=== PATIENT | male | born 1955 | race Caucasian/White ===

== ENCOUNTER 2020-04-18 07:48 | Outpatient (REF) | payer MEDICARE, SELFPAY ==
[2020-04-18 09:40] LABS: Anion Gap 12 (12-20); Blood Urea Nitrogen 25 mg/dL (9-16); Calcium 8.2 mg/dL (8.4-10.2); Carbon Dioxide 28 mmol/L (22-29); Chloride 102 mmol/L (96-108); Estimated Glomerular Filt Rate 54; Glucose Random 124 mg/dL (60-115); Sodium 137 mmol/L (135-145)
[2020-04-18 09:44] LABS: B Type Natriuretic Peptide 340 pg/mL (<100)
== END 2020-04-18 07:49 | disposition home or self-care (01) ==
LOC: HO.LAB 07:48
PROVIDERS: PCP Internal Medicine; Visit Provider Internal Medicine Cardiovascular Disease
DX: I42.9 Cardiomyopathy, unspecified (principal)
CPT/HCPCS: 80048; 83880

== ENCOUNTER → 2020-04-29 08:39 | Outpatient (BNVA) | payer MEDICARE, SELFPAY | PROVIDERS: PCP Internal Medicine; Referring Provider Internal Medicine; Visit Provider Internal Medicine Cardiovascular Disease | DX: I50.22 Chronic systolic (congestive) heart failure (principal); I42.8 Other cardiomyopathies; I47.2 Ventricular tachycardia; Z79.899 Other long term (current) drug therapy; Z45.02 Encounter for adjustment and management of automatic implantable cardiac defibrillator | CPT/HCPCS: 93005; 99212 ==

== ENCOUNTER 2020-06-03 07:43 | Outpatient (REF) | payer MEDICARE, SELFPAY ==
[2020-06-03 08:28] LABS: MANUAL DIFF FLAG NO
[2020-06-03 08:41] LABS: Estimated Average Glucose 117 mg/dL; Hemoglobin A1c % 5.7 %
[2020-06-03 08:50] LABS: Basophils Percent Auto 0.3 % (0-2); Eosinophils Absolute Auto 0.2 X10*3/uL (0.0-0.4); Eosinophils Percent Auto 3.8 % (0-4); Hematocrit 42.2 % (42-52); Hemoglobin 14.2 g/dl (14.0-18.0); Imm Gran Abs Auto 0.09 X10*3/uL (0.00-0.03); Imm Gran Pct Auto 1.5 % (0.0-0.4); Lymphocytes Absolute Auto 0.9 X10*3/uL (1.2-4.9); Lymphocytes Percent Auto 15.3 % (20-40); Mean Corpuscular HGB Conc 33.6 g/dl (31.0-36.0); Mean Corpuscular Hemoglobin 33.1 pg (27.0-33.0); Mean Corpuscular Volume 98.4 fL (80-98); Mean Platelet Volume 11.5 fL (9.4-12.4); Monocytes Absolute Auto 0.6 X10*3/uL (0.1-1.2); Neutrophils Absolute Auto 4.3 X10*3/uL (2.0-8.3); Neutrophils Percent Auto 70.1 % (45-73); Platelet Count 137 X10*3/uL (160-400); Red Blood Count 4.29 X10*6/uL (4.60-5.80); White Blood Count 6.1 X10*3/uL (4.8-10.8)
[2020-06-03 08:55] LABS: Calcium 8.9 mg/dL (8.4-10.2)
[2020-06-03 09:00] LABS: Alanine Aminotransferase 19 U/L (0-40); Alkaline Phosphatase 57 U/L (39-117); Anion Gap 13 (12-20); Aspartate Amino Transferase 16 U/L (5-37); Bilirubin Total 0.6 mg/dL (0.0-1.0); Blood Urea Nitrogen 25 mg/dL (9-16); Carbon Dioxide 26 mmol/L (22-29); Chloride 103 mmol/L (96-108); Estimated Glomerular Filt Rate 55; Glucose Random 113 mg/dL (60-115); Magnesium 2.3 mg/dL (1.6-2.6); Phosphorus 3.4 mg/dL (2.7-4.5); Sodium 137 mmol/L (135-145); Total Protein 6.5 g/dL (6.5-8.0)
== END 2020-06-03 07:44 | disposition home or self-care (01) ==
LOC: HO.LABR 07:43
PROVIDERS: Visit Provider Internal Medicine
DX: I50.20 Unspecified systolic (congestive) heart failure (principal); I10 Essential (primary) hypertension; E78.00 Pure hypercholesterolemia, unspecified; N40.0 Benign prostatic hyperplasia without lower urinary tract symptoms; I49.9 Cardiac arrhythmia, unspecified; E11.65 Type 2 diabetes mellitus with hyperglycemia; K22.70 Barrett's esophagus without dysplasia
CPT/HCPCS: 36415; 80053; 83036; 83735; 84100; 85025

== ENCOUNTER 2020-07-18 08:58 | Outpatient (REF) | payer MEDICARE, SELFPAY ==
[2020-07-18 09:32] LABS: MANUAL DIFF FLAG NO
[2020-07-18 09:42] LABS: Basophils Percent Auto 0.4 % (0-2); Eosinophils Absolute Auto 0.1 X10*3/uL (0.0-0.4); Eosinophils Percent Auto 1.8 % (0-4); Hematocrit 44.6 % (42-52); Hemoglobin 14.8 g/dl (14.0-18.0); Imm Gran Abs Auto 0.12 X10*3/uL (0.00-0.03); Imm Gran Pct Auto 1.6 % (0.0-0.4); Lymphocytes Percent Auto 13.2 % (20-40); Mean Corpuscular HGB Conc 33.2 g/dl (31.0-36.0); Mean Corpuscular Hemoglobin 32.5 pg (27.0-33.0); Mean Corpuscular Volume 97.8 fL (80-98); Mean Platelet Volume 11.1 fL (9.4-12.4); Monocytes Absolute Auto 0.8 X10*3/uL (0.1-1.2); Monocytes Percent Auto 10.7 % (2-11); Neutrophils Absolute Auto 5.5 X10*3/uL (2.0-8.3); Neutrophils Percent Auto 72.3 % (45-73); Platelet Count 142 X10*3/uL (160-400); Red Blood Count 4.56 X10*6/uL (4.60-5.80); Red Cell Distribution Width 13.3 % (11.0-16.0); White Blood Count 7.6 X10*3/uL (4.8-10.8)
[2020-07-18 10:07] LABS: Phosphorus 3.7 mg/dL (2.7-4.5)
[2020-07-18 10:10] LABS: Creatinine Urine 49.98 mg/dL; Microalbumin Urine < 5.0 mg/L
[2020-07-18 10:12] LABS: Alanine Aminotransferase 25 U/L (0-40); Albumin Level 4.3 g/dL (3.5-5.0); Alkaline Phosphatase 50 U/L (39-117); Anion Gap 12 (12-20); Aspartate Amino Transferase 19 U/L (5-37); Bilirubin Total 0.7 mg/dL (0.0-1.0); Blood Urea Nitrogen 34 mg/dL (9-16); Calcium 8.8 mg/dL (8.4-10.2); Carbon Dioxide 29 mmol/L (22-29); Chloride 101 mmol/L (96-108); Cholesterol 167 mg/dL; Estimated Glomerular Filt Rate 45; Glucose Random 100 mg/dL (60-115); HDL Cholesterol 54 mg/dL; LDL Cholesterol Calculated 95 mg/dl; Sodium 137 mmol/L (135-145); Triglycerides 90 mg/dL
[2020-07-18 10:15] LABS: B Type Natriuretic Peptide 298 pg/mL (<100)
[2020-07-18 10:26] LABS: Estimated Average Glucose 120 mg/dL; Hemoglobin A1C 152.7015 umol/L; Hemoglobin A1c % 5.8 %
[2020-07-18 10:42] LABS: Free T4 (Free Thyroxine) 1.23 ng/dL (0.71-1.85); Prostate Specific Antigen Scr 4.25 ng/mL (<0.05-4.0); Thyroid Stimulating Hormone 0.82 uIU/mL (0.32-4.0)
[2020-07-18 11:00] LABS: Folate > 20.0 ng/mL (> or = 4.0); Vitamin B12 1295 pg/mL (200-900)
== END 2020-07-18 08:59 | disposition home or self-care (01) ==
LOC: HO.LAB 08:58
PROVIDERS: PCP Internal Medicine; Visit Provider Internal Medicine
DX: I11.0 Hypertensive heart disease with heart failure (principal); I50.20 Unspecified systolic (congestive) heart failure; E78.00 Pure hypercholesterolemia, unspecified; K22.70 Barrett's esophagus without dysplasia; N40.0 Benign prostatic hyperplasia without lower urinary tract symptoms; I49.9 Cardiac arrhythmia, unspecified; E11.65 Type 2 diabetes mellitus with hyperglycemia; Z12.5 Encounter for screening for malignant neoplasm of prostate
CPT/HCPCS: 36415; 80053; 80061; 82043; 82607; 82746; 83036; 83880; 84100; 84153; 84439; 84443; 85025

== ENCOUNTER → 2020-07-22 08:33 | Outpatient (BNVA) | payer MEDICARE, SELFPAY | PROVIDERS: PCP Internal Medicine; Visit Provider Internal Medicine Cardiovascular Disease | DX: Z45.02 Encounter for adjustment and management of automatic implantable cardiac defibrillator (principal); I50.22 Chronic systolic (congestive) heart failure; I42.8 Other cardiomyopathies; I47.2 Ventricular tachycardia; N18.9 Chronic kidney disease, unspecified | CPT/HCPCS: 93005; 99212 ==

== ENCOUNTER 2020-08-24 08:14 | Outpatient (REF) | payer MEDICARE, SELFPAY ==
[2020-08-24 09:09] LABS: MANUAL DIFF FLAG NO
[2020-08-24 09:17] LABS: Basophils Percent Auto 0.6 % (0-2); Eosinophils Absolute Auto 0.1 X10*3/uL (0.0-0.4); Eosinophils Percent Auto 1.9 % (0-4); Hematocrit 43.1 % (42-52); Imm Gran Abs Auto 0.17 X10*3/uL (0.00-0.03); Imm Gran Pct Auto 2.4 % (0.0-0.4); Lymphocytes Absolute Auto 1.1 X10*3/uL (1.2-4.9); Lymphocytes Percent Auto 15.8 % (20-40); Mean Corpuscular HGB Conc 32.5 g/dl (31.0-36.0); Mean Corpuscular Hemoglobin 32.1 pg (27.0-33.0); Mean Corpuscular Volume 98.9 fL (80-98); Mean Platelet Volume 11.4 fL (9.4-12.4); Monocytes Absolute Auto 0.7 X10*3/uL (0.1-1.2); Monocytes Percent Auto 10.3 % (2-11); Platelet Count 156 X10*3/uL (160-400); Red Blood Count 4.36 X10*6/uL (4.60-5.80); Red Cell Distribution Width 13.2 % (11.0-16.0); White Blood Count 7.2 X10*3/uL (4.8-10.8)
[2020-08-24 09:23] LABS: Estimated Average Glucose 123 mg/dL; Hemoglobin A1c % 5.9 %
[2020-08-24 09:39] LABS: Alanine Aminotransferase 23 U/L (0-40); Albumin Level 4.2 g/dL (3.5-5.0); Alkaline Phosphatase 54 U/L (39-117); Anion Gap 10 (12-20); Anion Gap 11 (12-20); Aspartate Amino Transferase 20 U/L (5-37); Bilirubin Total 0.6 mg/dL (0.0-1.0); Blood Urea Nitrogen 38 mg/dL (9-16); Calcium 9.1 mg/dL (8.4-10.2); Calcium 9.2 mg/dL (8.4-10.2); Carbon Dioxide 29 mmol/L (22-29); Chloride 104 mmol/L (96-108); Estimated Glomerular Filt Rate 39; Glucose Random 114 mg/dL (60-115); Glucose Random 115 mg/dL (60-115); Magnesium 2.6 mg/dL (1.6-2.6); Phosphorus 3.6 mg/dL (2.7-4.5); Potassium 5.3 mmol/L (3.3-5.1); Sodium 138 mmol/L (135-145); Sodium 139 mmol/L (135-145); Total Protein 6.7 g/dL (6.5-8.0)
[2020-08-24 09:40] LABS: B Type Natriuretic Peptide 254 pg/mL (<100)
== END 2020-08-24 08:15 | disposition home or self-care (01) ==
LOC: HO.LAB 08:14
PROVIDERS: Internal Medicine Cardiovascular Disease; PCP Internal Medicine; Visit Provider Internal Medicine
DX: E11.22 Type 2 diabetes mellitus with diabetic chronic kidney disease (principal); I13.0 Hypertensive heart and chronic kidney disease with heart failure and stage 1 through stage 4 chronic kidney disease, or unspecified chronic kidney disease; N18.9 Chronic kidney disease, unspecified; I50.22 Chronic systolic (congestive) heart failure; E11.65 Type 2 diabetes mellitus with hyperglycemia; E78.00 Pure hypercholesterolemia, unspecified; K22.70 Barrett's esophagus without dysplasia; N40.0 Benign prostatic hyperplasia without lower urinary tract symptoms; I49.9 Cardiac arrhythmia, unspecified
CPT/HCPCS: 36415; 80048; 80053; 83036; 83735; 83880; 84100; 85025

== ENCOUNTER 2020-09-17 09:21 | Outpatient (REF) | payer MEDICARE, SELFPAY ==
[2020-09-17 10:21] LABS: Anion Gap 11 (12-20); Blood Urea Nitrogen 31 mg/dL (9-16); Calcium 8.9 mg/dL (8.4-10.2); Carbon Dioxide 31 mmol/L (22-29); Chloride 103 mmol/L (96-108); Estimated Glomerular Filt Rate 40; Glucose Random 99 mg/dL (60-115); Potassium 5.1 mmol/L (3.3-5.1); Sodium 140 mmol/L (135-145)
[2020-09-17 10:31] LABS: B Type Natriuretic Peptide 224 pg/mL (<100)
== END 2020-09-17 09:22 | disposition home or self-care (01) ==
LOC: HO.LAB 09:21
PROVIDERS: PCP Internal Medicine; Visit Provider Internal Medicine Cardiovascular Disease
DX: N18.9 Chronic kidney disease, unspecified (principal); I50.22 Chronic systolic (congestive) heart failure
CPT/HCPCS: 36415; 80048; 83880

== ENCOUNTER 2020-09-23 09:01 | Outpatient (REF) | payer MEDICARE, SELFPAY ==
--- NOTE | ~2020-09-23 | US_ITS ---
EXAMINATION: US THYROID CLINICAL INFORMATION: Nodules. COMPARISON: Ultrasound thyroid soft tissues 09/06/2019 and 09/13/2018. TECHNIQUE: Linear transducer grayscale and color Doppler examination with attention to the region of the thyroid. FINDINGS: SIZE: Measurements of the thyroid lobes and nodules are given in sagittal, anteroposterior and transverse dimensions respectively. Right Thyroid Lobe: 4.9 x 2.2 x 1.9 cm, volume 10.7 mL. Previously 5.9 x 1.7 x 1.9 cm, volume 9.9 mL. Parenchyma: The gland echotexture is homogeneous. Thyroid vascularity is normal. Left Thyroid Lobe: 4.4 x 1.1 x 1.6 cm, volume 4.1 mL. Previously 4.8 x 1.5 x 1.5 cm, volume 5.5 mL. Parenchyma: The gland echotexture is homogeneous. Thyroid vascularity is normal. Isthmus: 0.4 cm in maximum AP dimension. Previously 0.4 cm. There are multiple bilateral cystic nodules. Estimated total number of solid nodules greater than or equal to 1 cm: 1. Manufacturing Chief Engineer nodules are described as follows: 1. Location: Left midpole. Size: 1.2 x 0.7 x 1.0 cm, volume 0.4 mL. Previously: Not seen previously. Nodule characteristics: Composition: Solid/almost completely solid (2). Echogenicity: Isoechoic (1). Shape: Not taller than wide (0). Margins: Smooth (0). Echogenic Foci: None (0). ACR TI-RADS total points: 3. ACR TI-RADS category: 3. Significant change in size (>/= 20% in 2 dimensions and minimal increase of 2 mm or 50% or greater increase in volume): Change in features: Change in ACR TI-RADS risk category: NODES: No lymphadenopathy is seen in the tissue surrounding the thyroid gland. US/US thyroid IMPRESSION: Slightly enlarged right lobe. Multiple bilateral cystic nodules. Newly appreciated solid nodule in the left lobe.. ACR TI-RADS RECOMMENDATION REFERENCE: Ultrasound-guided fine-needle aspiration, followup ultrasound, no further follow up. * TR1 (0 point) and TR 2 (2 points): No FNA or follow up * TR3 (3 points): FNA if more than or equal to 2.5 cm in maximum dimension, followup ultrasound in 1, 3 and 5 years if 1.5 to 2.4 cm in maximum dimension. * TR4 (4-6 points): FNA if more than or equal to 1.5 cm in maximum dimension, followup ultrasound in 1, 2, 3 and 5 years if 1 to 1.4 cm in maximum dimension. * TR5 (more than or equal to 7 points): FNA if more than or equal to 1 cm in maximum dimension, followup ultrasound every year for 5 years if 0.5 to 0.9 cm in maximum dimension. * TR3, TR4 or TR5 nodules that are below the size threshold for follow up receive no follow up.
--- NOTE | ~2020-09-23 | XR_ITS ---
EXAMINATION: XR CHEST CLINICAL INFORMATION: CHF COMPARISON: Previous chest x-rays most recent December 2018 TECHNIQUE: 2 views of the chest were obtained. FINDINGS: The cardiac silhouette is enlarged but stable. There is a left subclavian single chamber pacemaker projecting over the ventricular apex that is unchanged. Hilar and mediastinal contours are unremarkable. There is question of a right pulmonary nodule in between the third and fourth anterior ribs. The lungs are otherwise clear. There is a small left pleural effusion. There is no right pleural effusion. There is increased thoracic kyphosis and degenerative changes of the spine. XR/XR chest 2V IMPRESSION: Stable enlargement of the cardiac silhouette. Small left pleural effusion. No evidence of pulmonary edema. Question 4 mm right pulmonary nodule.
== END 2020-09-23 09:02 | disposition home or self-care (01) ==
LOC: HO.US 09:01
PROVIDERS: PCP Internal Medicine; Visit Provider Internal Medicine Endocrinology, Diabetes & Metabolism
DX: E04.2 Nontoxic multinodular goiter (principal); I50.22 Chronic systolic (congestive) heart failure
CPT/HCPCS: 71046; 76536

== ENCOUNTER 2020-11-05 10:21 | Outpatient (REF) | payer MEDICARE, SELFPAY ==
[2020-11-05 11:06] LABS: Appearance Urine CLEAR; Color Urine STRAW; Glucose Urine UA NEG (NEG); Leukocyte Esterase Urine NEG (NEG); Nitrite Urine NEG (NEG); PH 5.5 (5.0-8.0); Urine Blood NEG (NEG); Urine Ketones NEG (NEG); Urine Protein NEG (NEG-TRACE)
[2020-11-05 11:06] LABS: MANUAL DIFF FLAG NO
[2020-11-05 11:20] LABS: RBC Urine 0 /HPF (0); WBC Urine 0 /HPF (0-4)
[2020-11-05 11:36] LABS: Basophils Percent Auto 0.2 % (0-2); Eosinophils Absolute Auto 0.1 X10*3/uL (0.0-0.4); Eosinophils Percent Auto 1.5 % (0-4); Hematocrit 42.8 % (42-52); Hemoglobin 13.9 g/dl (14.0-18.0); Imm Gran Abs Auto 0.14 X10*3/uL (0.00-0.03); Imm Gran Pct Auto 1.7 % (0.0-0.4); Lymphocytes Absolute Auto 0.8 X10*3/uL (1.2-4.9); Lymphocytes Percent Auto 9.4 % (20-40); Mean Corpuscular HGB Conc 32.5 g/dl (31.0-36.0); Mean Corpuscular Hemoglobin 32.1 pg (27.0-33.0); Mean Corpuscular Volume 98.8 fL (80-98); Mean Platelet Volume 11.2 fL (9.4-12.4); Monocytes Absolute Auto 0.8 X10*3/uL (0.1-1.2); Neutrophils Absolute Auto 6.4 X10*3/uL (2.0-8.3); Neutrophils Percent Auto 77.2 % (45-73); Platelet Count 170 X10*3/uL (160-400); Red Blood Count 4.33 X10*6/uL (4.60-5.80); Red Cell Distribution Width 13.3 % (11.0-16.0); White Blood Count 8.3 X10*3/uL (4.8-10.8)
[2020-11-05 11:55] LABS: Alanine Aminotransferase 26 U/L (0-40); Albumin Level 4.3 g/dL (3.5-5.0); Alkaline Phosphatase 67 U/L (39-117); Anion Gap 14 (12-20); Aspartate Amino Transferase 19 U/L (5-37); Bilirubin Total 0.4 mg/dL (0.0-1.0); Blood Urea Nitrogen 47 mg/dL (9-16); Calcium 9.2 mg/dL (8.4-10.2); Carbon Dioxide 25 mmol/L (22-29); Chloride 103 mmol/L (96-108); Estimated Glomerular Filt Rate 34; Glucose Random 149 mg/dL (60-115); Magnesium 2.7 mg/dL (1.6-2.6); Phosphorus 3.8 mg/dL (2.7-4.5); Potassium 5.3 mmol/L (3.3-5.1); Sodium 137 mmol/L (135-145); Total Protein 7.1 g/dL (6.5-8.0)
[2020-11-05 12:05] LABS: Estimated Average Glucose 120 mg/dL; Hemoglobin A1C 168.7442 umol/L; Hemoglobin A1c % 5.8 %
== END 2020-11-05 10:22 | disposition home or self-care (01) ==
LOC: HO.LAB 10:21
PROVIDERS: Absent Provider Internal Medicine; PCP Internal Medicine; Visit Provider Nurse Practitioner Family
DX: E11.65 Type 2 diabetes mellitus with hyperglycemia (principal); N50.812 Left testicular pain
CPT/HCPCS: 36415; 80053; 81001; 83036; 83735; 84100; 85025

== ENCOUNTER → 2020-11-12 08:51 | Outpatient (BNVA) | payer MEDICARE, SELFPAY | PROVIDERS: PCP Internal Medicine; Visit Provider Internal Medicine Endocrinology, Diabetes & Metabolism | DX: E04.2 Nontoxic multinodular goiter (principal) | CPT/HCPCS: 99212 ==

== ENCOUNTER 2020-11-13 06:21 | Day surgery (SDC) | payer MEDICARE, SELFPAY ==
[2020-11-05 19:22] VITALS: BMI 25.5
--- NOTE | 2020-11-12 10:16 | HO.ANESPROP2 ---
HPI - Anesthesia Eval Consult details Narrative: 65yo M for Upper Endoscopy ICD in situ stable per cardiac office visit 07/2020, diuretic decreased d/t increasing creat PMFSH Active Problems Active Problems: All Active Problems (Updated 11/12/20 @ 09:09 by Shubham Bundy MD) Non-toxic multinodular goiter (Acute) Adult general medical exam (Acute) Pain in left testicle (Acute) CKD (chronic kidney disease) (Acute) Chronic HFrEF (heart failure with reduced ejection fraction) (Acute) Nonischemic cardiomyopathy (Acute) ICD (implantable cardioverter-defibrillator) in place (Acute) NSVT (nonsustained ventricular tachycardia) (Acute) BPH (benign prostatic hyperplasia) (Acute) Mayers's esophagus (Acute) Hypercholesterolemia (Acute) Hypertension (Acute) Type 2 diabetes mellitus with hyperglycemia (Acute) Overweight (BMI 25.0-29.9) (Acute) GERD (gastroesophageal reflux disease) (Acute) Past Medical History Medical History Mayers's esophagus BPH (benign prostatic hyperplasia) Chronic HFrEF (heart failure with reduced ejection fraction) CKD (chronic kidney disease) GERD (gastroesophageal reflux disease) High prostate specific antigen (PSA) History of pulmonary embolism Hypercholesterolemia Hypertension ICD (implantable cardioverter-defibrillator) in place Non-toxic multinodular goiter Nonischemic cardiomyopathy NSVT (nonsustained ventricular tachycardia) Overweight (BMI 25.0-29.9) Pain in left testicle Shoulder fracture, right Sialoadenitis Sustained VT (ventricular tachycardia) Thyroid nodule Tubular adenoma of colon Type 2 diabetes mellitus with hyperglycemia Family History Family History Father CVD (cardiovascular disease) Leukemia Cardiomyopathy HTN (hypertension) Mother HTN (hypertension) Surgical History Surgical History H/O left inguinal hernia repair History of colonoscopy History of loop recorder (~2013) History of prostate surgery History of tonsillectomy and adenoidectomy Hx of cardiac cath (~2013) Social History Social History Alcohol intake: never Use of substances other than those prescribed or required for medical reasons: No Are you DNR?: No Advance Directives: Yes Advance Directives Information Provided: Yes Advance Directives on File: No (will bring in copy) Advance Directives Date on File: 07/16/19 Meds Allergies Allergy/AdvReac Type Severity Reaction Status Date / Time epinephrine [EPINEPHRINE] Allergy Severe CANNOT Verified 11/05/20 19:22 TAKE DUE TO VTACH HX AND AICD SETTINGS metoprolol [METOPROLOL] Allergy Intermediate FLU LIKE Verified 11/05/20 19:22 SYMPTOMS ezetimibe [From ZETIA] AdvReac Intermediate HEAD Verified 11/05/20 19:22 FUZZY Oodtglx-Tet-Ccm Reductase AdvReac Intermediate HEAD Verified 11/05/20 19:22 Inhibitor FUZZY [[id number]-RXO-MHZ REDUCTASE INHIBITOR] naproxen AdvReac Unknown water Verified 11/05/20 19:22 retention Home Medications Medication Instructions Recorded Confirmed Last Taken Type bimatoprost 0.01 % eye drops 1 drp OPHTHALMIC (EYE) DAILY ml 04/29/20 11/12/20 Unknown History bumetanide 2 mg tablet 2.5 mg PO DAILY tab 08/29/20 11/12/20 Unknown History ivabradine 5 mg tablet 2.5 mg PO BID cap 11/12/20 11/12/20 11/13/20 05:00 History lisinopril 10 mg tablet 10 mg PO DAILY 11/12/20 11/12/20 Unknown History potassium chloride 20 mEq 80 meq PO BID PRN tab 11/12/20 11/12/20 Unknown History tablet,extended release(part/cryst) Exam Exam Date and Time: November 12, 2020 1016 Height,Weight and Vital Signs: Height 5 ft 11 in Weight 83.007 kg Pertinent Lab Results Pertinent Lab Results: Laboratory Tests 11/05/20 11/05/20 10:34 10:34 WBC 8.3 Hgb 13.9 L Hct 42.8 Plt Count 170 Sodium 137 Potassium 5.3 H Chloride 103 Carbon Dioxide 25 BUN 47 H D Creatinine 1.99 H Narrative Narrative: Remote ICD report generated 10/29/2020. ICD function is adequate. Multiple nonsustained VT episodes noted. No therapies delivered EKG 07/2020 normal sinus rhythm first-degree AV block with sinus arrhythmia with low-voltage QRS and inferior Q-waves with normal QTC interval ECHO 09/2019 (due 01/2021 per cardiology note) EF 20-25% grade 2 diastolic dysfunction moderate MR moderate dilated left atrium, severe right ventricular pressure Assessment and Plan Assessment Anesthesia Assessment: Chart Reviewed
[2020-11-13 06:43] VITALS: BP 114/61; PULSE 52; RESP 20; TEMP 36.3; O2SAT 99
[2020-11-13 06:49] LABS: Glucose, Whole Blood 99 mg/dL (60-115)
[2020-11-13] MEDS: 0.9 % Sodium Chloride 1,000 ML 50 ML IVCONT (07:05)
--- NOTE | 2020-11-13 07:17 | P.CONAN_ITS ---
[facility] Active Problems Active Problems: All Active Problems (Updated 11/12/20 @ 09:09 by Shubham Bundy MD) Non-toxic multinodular goiter (Acute) Adult general medical exam (Acute) Pain in left testicle (Acute) CKD (chronic kidney disease) (Acute) Chronic HFrEF (heart failure with reduced ejection fraction) (Acute) Nonischemic cardiomyopathy (Acute) ICD (implantable cardioverter-defibrillator) in place (Acute) NSVT (nonsustained ventricular tachycardia) (Acute) BPH (benign prostatic hyperplasia) (Acute) Mayers's esophagus (Acute) Hypercholesterolemia (Acute) Hypertension (Acute) Type 2 diabetes mellitus with hyperglycemia (Acute) Overweight (BMI 25.0-29.9) (Acute) GERD (gastroesophageal reflux disease) (Acute) Past Medical History Medical History Mayers's esophagus BPH (benign prostatic hyperplasia) Chronic HFrEF (heart failure with reduced ejection fraction) CKD (chronic kidney disease) GERD (gastroesophageal reflux disease) High prostate specific antigen (PSA) History of pulmonary embolism Hypercholesterolemia Hypertension ICD (implantable cardioverter-defibrillator) in place Non-toxic multinodular goiter Nonischemic cardiomyopathy NSVT (nonsustained ventricular tachycardia) Overweight (BMI 25.0-29.9) Pain in left testicle Shoulder fracture, right Sialoadenitis Sustained VT (ventricular tachycardia) Thyroid nodule Tubular adenoma of colon Type 2 diabetes mellitus with hyperglycemia Family History Family History Father CVD (cardiovascular disease) Leukemia Cardiomyopathy HTN (hypertension) Mother HTN (hypertension) Surgical History Surgical History H/O left inguinal hernia repair History of colonoscopy History of loop recorder (~2013) History of prostate surgery History of tonsillectomy and adenoidectomy Hx of cardiac cath (~2013) Social History Social History Alcohol intake: never Use of substances other than those prescribed or required for medical reasons: No Are you DNR?: No Advance Directives: Yes Advance Directives Information Provided: Yes Advance Directives on File: No (will bring in copy) Advance Directives Date on File: 07/16/19 Meds Allergies Allergy/AdvReac Type Severity Reaction Status Date / Time epinephrine [EPINEPHRINE] Allergy Severe CANNOT Verified 11/05/20 19:22 TAKE DUE TO VTACH HX AND AICD SETTINGS metoprolol [METOPROLOL] Allergy Intermediate FLU LIKE Verified 11/05/20 19:22 SYMPTOMS ezetimibe [From ZETIA] AdvReac Intermediate HEAD Verified 11/05/20 19:22 FUZZY Kddzdyg-Bvo-Vnw Reductase AdvReac Intermediate HEAD Verified 11/05/20 19:22 Inhibitor FUZZY [CKIAJGP-HIT-UCU REDUCTASE INHIBITOR] naproxen AdvReac Unknown water Verified 11/05/20 19:22 retention Active Medications: Current Medications Generic Name Dose Route Start Last Admin Trade Name Freq PRN Reason Stop Dose Admin Sodium Chloride 1,000 mls @ 50 mls/hr 11/13/20 06:15 11/13/20 07:05 Ns IVCONT 50 mls/hr .Q20H DENNISE Administration Home Medications Medication Instructions Recorded Confirmed Last Taken Type bimatoprost 0.01 % eye drops 1 drp OPHTHALMIC (EYE) DAILY ml 04/29/20 11/12/20 Unknown History bumetanide 2 mg tablet 2.5 mg PO DAILY tab 08/29/20 11/12/20 Unknown History ivabradine 5 mg tablet 2.5 mg PO BID cap 11/12/20 11/12/20 11/13/20 05:00 History lisinopril 10 mg tablet 10 mg PO DAILY 11/12/20 11/12/20 Unknown History potassium chloride 20 mEq 80 meq PO BID PRN tab 11/12/20 11/12/20 Unknown History tablet,extended release(part/cryst) Exam Exam Date and Time: November 13, 2020 0717 Height,Weight and Vital Signs: Height 5 ft 11 in Weight 83.007 kg Last Vital Signs Temp 97.4 F 11/13/20 06:43 Pulse 52 11/13/20 06:43 Resp 20 11/13/20 06:43 BP 114/61 11/13/20 06:43 Pulse Ox 99 11/13/20 06:43 Pertinent Lab Results Pertinent Lab Results: Laboratory Tests 11/13/20 06:38 POC Glucose 99 Airway Mallampati Class: II TM Dist: >3cm Neck ROM: Full Heart: RRR Lungs: CTA
[2020-11-13 08:09] VITALS: BP 100/48; PULSE 56; RESP 16; TEMP 36.2; O2SAT 98
--- NOTE | 2020-11-13 08:12 | P.BOP_ITS ---
Brief Operative Note Date of Service: 11/13/20 Pre-op diagnosis: Mayers's Post-op diagnosis: other (Mayers's, Gastric polyp) Procedure: EGD with biopsies Surgeon: Dalton Flores Anesthesia: MAC Was an Fire Sprinkler Service Technician used for this Procedure?: No Estimated blood loss (mL): 4.0 Pathology: other (A. Esophagus 35-36cm B. Gastric polyp) Condition: stable Disposition: PACU
[2020-11-13 08:22] VITALS: BP 105/48; PULSE 58; RESP 16; O2SAT 99
[2020-11-13 08:24] VITALS: BP 111/49; PULSE 60; RESP 18; O2SAT 98
--- NOTE | 2020-11-13 08:51 | OP_ITS ---
SURGEON: Dalton Flores MD INDICATIONS: The patient presents for evaluation of gastroesophageal reflux and low grade dysplasia within the Mayers's esophagus. Full consent has been obtained from him for this, including risks of bleeding and perforation. PREOPERATIVE DIAGNOSIS: Gastroesophageal reflux with Mayers's esophagus and low-grade dysplasia. POSTOPERATIVE DIAGNOSIS: Gastroesophageal reflux with Mayers's esophagus and low-grade dysplasia, hiatal hernia, gastric polyp. PROCEDURE PERFORMED: Esophagogastroduodenoscopy with biopsies. ESTIMATED BLOOD LOSS: COMPLICATIONS: ANESTHESIA: Medication used, monitored anesthesia care. ASSISTANTS: SPECIMENS: DESCRIPTION OF PROCEDURE: The patient was placed in the left lateral decubitus position. The Olympus video gastroscope was passed in the posterior oropharynx and upper esophagus under direct vision. The scope was passed slowly into the distal esophagus. The gastroesophageal junction appeared at 36 cm. Extending from this to 35 cm, there was a non-circumferential segment of Mayers's appearing mucosa. There was no gross evidence of any lesions nor esophagitis. The scope entered the stomach, there was a moderate-sized hiatal hernia with the diaphragmatic indentation seen at 40 cm. Within the hiatal hernia what appeared to be an inflammatory polyp. The scope was advanced to the pylorus and the duodenum was cannulated the descending portion, the duodenum including the bulb appeared normal without mass or ulceration. The scope was withdrawn back in the stomach. The gastric antrum and body appeared normal with good peristalsis. The scope was retroflexed visualizing the proximal stomach carefully, which appeared normal, without any sign of mass or ulceration. The scope was straightened. Scope was withdrawn back to the esophagus. Multiple biopsies were obtained between 35 and 36 cm in the area of Mayers's appearing mucosa. I then also obtained multiple biopsies from the inflammatory appearing gastric polyp within the hiatal hernia. Proximal to 35 cm, the esophageal mucosa appeared normal. The scope was withdrawn from the patient. He tolerated the procedure well and was returned to the recovery area in stable condition. IMPRESSION: 1. Mayers's esophagus, rule out dysplasia. 2. Inflammatory appearing gastric polyp. 3. Hiatal hernia. PLAN: The results of biopsies will be checked. I would recommend a repeat upper endoscopy within 1 to 2 years depending upon these results and his previous history of dysplasia. He was advised to continue his daily omeprazole. He was advised not to use any aspirin or NSAIDs for 1 week. MD ADELE Tse/ALFRED / [phone]
--- NOTE | 2020-11-13 12:51 | HO.POSTANES ---
Post Anesthesia Evaluation Post Anesthesia Evaluation Vital Signs: Vital Signs Temp Pulse Resp BP Pulse Ox 11/13/20 08:24 60 18 111/49 L 98 11/13/20 08:22 58 16 105/48 L 99 11/13/20 08:09 97.1 F 56 16 100/48 L 98 11/13/20 06:43 97.4 F 52 20 114/61 99 Anesthesia: Monitored Mental Status: Awake Pain Control: Satisfactory Nausea/Vomiting: None Hydration: Adequate Anesthesia-Related Issues: No Anes. Related Issues
== END 2020-11-13 08:57 | disposition home or self-care (01) ==
PROVIDERS: PCP Internal Medicine; Visit Provider Internal Medicine
PROC: 0DJ08ZZ Inspection of Upper Intestinal Tract, Via Natural or Artificial Opening Endoscopic (ICD-10-PCS; CPT 43235; principal; 2020-11-13 07:30)
DX: K21.9 Gastro-esophageal reflux disease without esophagitis (principal); K22.710 Barrett's esophagus with low grade dysplasia; K44.9 Diaphragmatic hernia without obstruction or gangrene; K31.7 Polyp of stomach and duodenum; I13.0 Hypertensive heart and chronic kidney disease with heart failure and stage 1 through stage 4 chronic kidney disease, or unspecified chronic kidney disease; I50.22 Chronic systolic (congestive) heart failure; N18.9 Chronic kidney disease, unspecified; E11.22 Type 2 diabetes mellitus with diabetic chronic kidney disease; Z79.899 Other long term (current) drug therapy; Z88.8 Allergy status to other drugs, medicaments and biological substances
CPT/HCPCS: 43239; 82947; 88305; 88342

== ENCOUNTER → 2020-11-21 14:55 | Outpatient (BNVA) | payer MEDICARE, SELFPAY | PROVIDERS: PCP Internal Medicine; Visit Provider Urology | DX: N50.812 Left testicular pain (principal) | CPT/HCPCS: 64450; 99202 ==

== ENCOUNTER 2020-11-26 08:04 | Outpatient (REF) | payer MEDICARE, SELFPAY ==
[2020-11-26 09:23] LABS: B Type Natriuretic Peptide 316 pg/mL (<100)
[2020-11-26 09:25] LABS: Alanine Aminotransferase 26 U/L (0-40); Alkaline Phosphatase 50 U/L (39-117); Anion Gap 12 (12-20); Aspartate Amino Transferase 27 U/L (5-37); Bilirubin Total 0.7 mg/dL (0.0-1.0); Blood Urea Nitrogen 37 mg/dL (9-16); Calcium 9.1 mg/dL (8.4-10.2); Carbon Dioxide 27 mmol/L (22-29); Chloride 104 mmol/L (96-108); Estimated Glomerular Filt Rate 35; Glucose Random 103 mg/dL (60-115); Magnesium 2.3 mg/dL (1.6-2.6); Sodium 138 mmol/L (135-145); Total Protein 6.4 g/dL (6.5-8.0)
== END 2020-11-26 08:05 | disposition home or self-care (01) ==
LOC: HO.LAB 08:04
PROVIDERS: PCP Internal Medicine; Visit Provider Internal Medicine
DX: I50.22 Chronic systolic (congestive) heart failure (principal)
CPT/HCPCS: 36415; 80053; 83735; 83880

== ENCOUNTER → 2020-12-20 11:47 | Outpatient (BNVA) | payer MEDICARE, SELFPAY | PROVIDERS: PCP Internal Medicine; Visit Provider Urology | DX: N50.819 Testicular pain, unspecified (principal) | CPT/HCPCS: Q3014 ==

== ENCOUNTER 2021-01-16 07:24 | Outpatient (REF) | payer MEDICARE, SELFPAY ==
[2021-01-16 08:33] LABS: Eosinophils Absolute Auto 0.1 X10*3/uL (0.0-0.4); Hemoglobin 13.2 g/dl (14.0-18.0); Mean Platelet Volume 11.5 fL (9.4-12.4)
[2021-01-16 08:35] LABS: Basophils Percent Auto 0.4 % (0-2); Eosinophils Percent Auto 1.9 % (0-4); Hematocrit 40.6 % (42-52); Imm Gran Abs Auto 0.08 X10*3/uL (0.00-0.03); Imm Gran Pct Auto 1.1 % (0.0-0.4); Mean Corpuscular HGB Conc 32.5 g/dl (31.0-36.0); Mean Corpuscular Hemoglobin 32.2 pg (27.0-33.0); Monocytes Absolute Auto 0.9 X10*3/uL (0.1-1.2); Monocytes Percent Auto 11.9 % (2-11); Neutrophils Absolute Auto 5.1 X10*3/uL (2.0-8.3); Neutrophils Percent Auto 70.7 % (45-73); Platelet Count 134 X10*3/uL (160-400); Red Cell Distribution Width 13.5 % (11.0-16.0); White Blood Count 7.2 X10*3/uL (4.8-10.8)
[2021-01-16 08:37] LABS: MANUAL DIFF FLAG NO
[2021-01-16 09:40] LABS: Alanine Aminotransferase 24 U/L (0-40); Alkaline Phosphatase 50 U/L (39-117); Anion Gap 14 (12-20); Aspartate Amino Transferase 20 U/L (5-37); Bilirubin Total 0.6 mg/dL (0.0-1.0); Blood Urea Nitrogen 46 mg/dL (9-16); Calcium 9.4 mg/dL (8.4-10.2); Carbon Dioxide 26 mmol/L (22-29); Chloride 104 mmol/L (96-108); Estimated Glomerular Filt Rate 33; Glucose Random 100 mg/dL (60-115); Magnesium 2.4 mg/dL (1.6-2.6); Potassium 4.6 mmol/L (3.3-5.1); Sodium 139 mmol/L (135-145); Total Protein 6.5 g/dL (6.5-8.0)
[2021-01-16 09:51] LABS: Thyroid Stimulating Hormone 0.76 uIU/mL (0.32-4.0)
== END 2021-01-16 07:25 | disposition home or self-care (01) ==
LOC: HO.LAB 07:24
PROVIDERS: Absent Provider Internal Medicine Cardiovascular Disease; PCP Internal Medicine; Visit Provider Internal Medicine
DX: I50.22 Chronic systolic (congestive) heart failure (principal)
CPT/HCPCS: 36415; 80053; 83735; 84443; 85025

== ENCOUNTER → 2021-01-20 12:46 | Outpatient (BNVA) | payer MEDICARE, SELFPAY | PROVIDERS: PCP Internal Medicine; Referring Provider Internal Medicine; Visit Provider Internal Medicine Cardiovascular Disease | DX: Z45.02 Encounter for adjustment and management of automatic implantable cardiac defibrillator (principal); I50.22 Chronic systolic (congestive) heart failure; I42.8 Other cardiomyopathies | CPT/HCPCS: 93005; 99212 ==

== ENCOUNTER → 2021-02-19 10:09 | Outpatient (REF) | payer MEDICARE, SELFPAY ==
--- NOTE | 2021-02-19 10:12 | CA_ITS ---
Transthoracic Echocardiogram Patient (Last, First, Middle): Joseph LomasNinfa Gender: Male Date of : 1955 Age: 65 Procedure Date: 02/19/2021 Procedure Type: Transthoracic Echocardiogram Location: OP Height: 180.34 cm Weight: 81.65 kg BSA: 2.02 m2 Heart Rate: bpm BP: 70 / 40 mmHg Security Consultant: JAMES Referring MD: Renato Diaz MD Symptoms: I42.8 - Other cardiomyopathies Study Quality: Fair ECG Rhythm: Sinus Conclusions: - The left ventricular systolic function is severely decreased. The calculated ejection fraction is 28% by biplane method. - There is mild aortic valve regurgitation. - There is mild mitral valve regurgitation. - There is mild tricuspid valve regurgitation. Findings Left Ventricle Moderately increased left ventricular cavity size. There is normal left ventricular wall thickness. The left ventricular systolic function is severely decreased. The calculated ejection fraction is 28% by biplane method. There is severe global hypokinesis. E/E prime ratio is between 8 and 15 consistent with indeterminate filling pressures. Evidence suggests grade I (mild) diastolic dysfunction. Right Ventricle There is a pacemaker wire seen in the right ventricle. Atria Both atria are normal in size. Aortic Valve There is a normal trileaflet aortic valve. There is no aortic valve stenosis. There is mild aortic valve regurgitation. Mitral Valve The mitral valve appears normal. There is mild mitral valve regurgitation. There is no mitral valve stenosis. Tricuspid Valve Normal tricuspid valve structure. There is mild tricuspid valve regurgitation. The pulmonary artery systolic pressure is normal. Great Vessels The aortic annulus, sinuses of valsalva, and asc aorta are normal in size. Venous The inferior vena cava is normal in size and collapses greater than 50% with inspiration. Pericardium/Pleural There is no evidence of pericardial effusion. Prior Study Comparison No significant change compared to prior study dated: 09/28/2019. Measurements 2D Linear Measurements IVSd: 1.01 0.6-0.9/0.6-1.0 cm LVIDd: 6.53 3.9-5.3/4.2-5.9 cm LVIDd Index: 3.23 2.4-3.2/2.2-3.1 cm/m2 LVIDs: 5.64 2.0-3.6 cm LVPWd: 1.27 0.7-1.1 cm Ao Root: 3.40 2.1-3.5 cm LA Diam: 3.90 2.7-3.8/3.0-4.0 cm LAIDs Index: 1.93 1.5-2.3 cm/m2 LV Mass: 421.57 67-162/88-224 g LV Mass Index: 208.70 43-95/49-115 g/m2 LVOT Diam: 2.60 3.0+(-)1.3 cm 2D Systolic Function EF 4C: 27.20 >55% EF 2C: 24.70 >55% EF BiP: 27.80 >55% Mitral Valve MV Pk E: 0.60 MV PK A: 0.81 MV Decel Time: 204.00 E/A: 0.70 E'Lateral: 5.77 E'Medial: 5.22 E/E' Med: 11.40 E/E' Lat: 10.30 PHT: 60.00 MVA PHT: 3.67 Decel [place]: 2.92 Aortic Valve AoV Pk Michael: 1.29 AoV Pk Grad: 7.00 AI Pk Michael: 3.27 AI [place]: 1.38 LVOT LVOT Pk Michael: 0.44 LVOT Mn Michael: 0.30 LVOT VTI: 0.11 LVOT Pk Grad: 1.00 LVOT Mn Grad: 0.00 LVOT Diam: 2.60 LVOT Area: 5.31 Diastolic Function MV Pk E: 0.60 MV Pk A: 0.81 E/A: 0.70 E'Medial: 5.22 E/E' Med: 11.40 E' Laterial: 5.77 E/E' Lat: 10.30 Right Ventricle TAPSE (mm): 1.80 Tricuspid Valve TR Pk Michael: 2.25 TR Pk Grad: 20.00 RA Press: 3.00 RVSP: 23.00 Great Vessels Aorta Ao Root-2D: 3.40 2.0-3.7 cm Ao Asc: 3.20 2.1-3.4 cm Updated in Other Vendor System with Status of Final Gerhard Cespedes MD electronically signed on 02/21/2021 2:45:57 PM with status of Final
== END ==
LOC: HO.CARD 10:09
PROVIDERS: Visit Provider Internal Medicine Cardiovascular Disease
DX: I42.8 Other cardiomyopathies (principal)
CPT/HCPCS: 93306

== ENCOUNTER 2021-03-03 07:24 | Outpatient (REF) | payer MEDICARE, SELFPAY ==
[2021-03-03 08:39] LABS: Anion Gap 13 (12-20); Blood Urea Nitrogen 35 mg/dL (9-16); Calcium 8.8 mg/dL (8.4-10.2); Carbon Dioxide 25 mmol/L (22-29); Chloride 108 mmol/L (96-108); Estimated Glomerular Filt Rate 38; Glucose Random 128 mg/dL (60-115); Magnesium 2.4 mg/dL (1.6-2.6); Potassium 4.5 mmol/L (3.3-5.1); Sodium 141 mmol/L (135-145)
[2021-03-03 10:58] LABS: Creatinine Urine 139.67 mg/dL
== END 2021-03-03 07:25 | disposition home or self-care (01) ==
LOC: HO.LABR 07:24
PROVIDERS: PCP Internal Medicine; Visit Provider Internal Medicine
DX: E11.65 Type 2 diabetes mellitus with hyperglycemia (principal); E78.00 Pure hypercholesterolemia, unspecified; I50.22 Chronic systolic (congestive) heart failure
CPT/HCPCS: 36415; 80048; 83735

== ENCOUNTER 2021-03-18 07:47 | Outpatient (REF) | payer MEDICARE, SELFPAY ==
[2021-03-18 08:59] LABS: Anion Gap 13 (12-20); Blood Urea Nitrogen 27 mg/dL (9-16); Calcium 9.2 mg/dL (8.4-10.2); Carbon Dioxide 25 mmol/L (22-29); Chloride 107 mmol/L (96-108); Estimated Glomerular Filt Rate 48; Glucose Random 115 mg/dL (60-115); Potassium 4.6 mmol/L (3.3-5.1); Sodium 140 mmol/L (135-145)
== END 2021-03-18 07:48 | disposition home or self-care (01) ==
LOC: HO.LAB 07:47
PROVIDERS: PCP Internal Medicine; Visit Provider Internal Medicine
DX: Z20.822 Contact with and (suspected) exposure to COVID-19 (principal); I50.22 Chronic systolic (congestive) heart failure; L25.9 Unspecified contact dermatitis, unspecified cause
CPT/HCPCS: 80048; U0003; U0005

== ENCOUNTER 2021-03-28 14:32 | Outpatient (REF) | payer MEDICARE, SELFPAY ==
--- NOTE | ~2021-03-28 | US_ITS ---
EXAMINATION: US VENOUS WITH DOPPLER UPPER EXTREMITY, RIGHT CLINICAL INFORMATION: Right upper extremity swelling/edema. Pain for 9 days. COMPARISON: None TECHNIQUE: Ultrasound of the upper extremity is performed using compression sonography and color and pulse Doppler flow with assessment of augmentation of flow. There is also imaging and Doppler assessment of the jugular and subclavian veins. Spectral analysis with color-flow imaging is performed. FINDINGS: Heterogeneous echogenicity and noncompressibility with decreased Doppler detectable vascular flow within the basilic vein in the region of the recent IV puncture in the antecubital fossa and extending proximally to the region of the axilla. Findings are consistent with acute thrombophlebitis. Respiratory variation, normal compression, and augmented flow are noted throughout the upper extremity including the axillary, brachial, cubital, and radial and ulnar veins. There is normal flow in the internal jugular and subclavian veins. There is no visible deep or superficial thrombophlebitis. US/US venous duplex UE RT IMPRESSION: Acute thrombophlebitis throughout the basilic vein from the level of the recent IV puncture in the antecubital fossa extending proximally to the axilla. No deep vein thrombosis.
== END 2021-03-28 14:33 | disposition home or self-care (01) ==
LOC: HO.US 14:32
PROVIDERS: PCP Internal Medicine; Visit Provider Nurse Practitioner Family
DX: M79.601 Pain in right arm (principal); M79.89 Other specified soft tissue disorders
CPT/HCPCS: 93971

== ENCOUNTER 2021-05-13 07:57 | Outpatient (REF) | payer MEDICARE, SELFPAY ==
[2021-05-13 10:21] LABS: MANUAL DIFF FLAG NO
[2021-05-13 10:26] LABS: Basophils Percent Auto 0.4 % (0-2); Eosinophils Absolute Auto 0.2 X10*3/uL (0.0-0.4); Hematocrit 44.5 % (42.0-52.0); Imm Gran Abs Auto 0.07 X10*3/uL (0.00-0.03); Imm Gran Pct Auto 0.9 % (0.0-0.4); Lymphocytes Absolute Auto 1.1 X10*3/uL (1.2-4.9); Lymphocytes Percent Auto 14.3 % (20-40); Mean Corpuscular HGB Conc 31.5 g/dl (31.0-36.0); Mean Corpuscular Hemoglobin 31.5 pg (27.0-33.0); Mean Corpuscular Volume 100.2 fL (80.0-98.0); Mean Platelet Volume 12.5 fL (9.4-12.4); Monocytes Absolute Auto 0.8 X10*3/uL (0.1-1.2); Monocytes Percent Auto 10.2 % (2-11); Neutrophils Absolute Auto 5.4 x10*3/uL (2.0-8.3); Neutrophils Percent Auto 72.2 % (45-73); Platelet Count 138 X10*3/uL (160-400); Red Blood Count 4.44 X10*6/uL (4.60-5.80); Red Cell Distribution Width 13.2 % (11.0-16.0); White Blood Count 7.5 X10*3/uL (4.8-10.8)
[2021-05-13 10:35] LABS: Alanine Aminotransferase 20 U/L (0-40); Albumin Level 4.1 g/dL (3.5-5.0); Alkaline Phosphatase 59 U/L (39-117); Anion Gap 12 (12-20); Aspartate Amino Transferase 15 U/L (5-37); Bilirubin Total 0.8 mg/dL (0.0-1.0); Blood Urea Nitrogen 22 mg/dL (9-16); Calcium 9.1 mg/dL (8.4-10.2); Carbon Dioxide 26 mmol/L (22-29); Chloride 106 mmol/L (96-108); Estimated Glomerular Filt Rate 51; Glucose Random 110 mg/dL (60-115); Magnesium 2.4 mg/dL (1.6-2.6); Phosphorus 3.3 mg/dL (2.7-4.5); Potassium 4.4 mmol/L (3.3-5.1); Sodium 140 mmol/L (135-145); Total Protein 6.6 g/dL (6.5-8.0)
[2021-05-13 10:46] LABS: B Type Natriuretic Peptide 699 pg/mL (<100)
[2021-05-13 10:56] LABS: Free T4 (Free Thyroxine) 1.18 ng/dL (0.71-1.85); Thyroid Stimulating Hormone 0.75 uIU/mL (0.32-4.0)
== END 2021-05-13 07:58 | disposition home or self-care (01) ==
LOC: HO.10HDLR 07:57
PROVIDERS: Visit Provider Internal Medicine
DX: I50.22 Chronic systolic (congestive) heart failure (principal)
CPT/HCPCS: 36415; 80053; 83735; 83880; 84100; 84439; 84443; 85025

== ENCOUNTER 2021-05-21 08:56 | Inpatient (IN) | payer MEDICARE, SELFPAY ==
[2021-05-21] VITALS (11 sets, daily range): BP systolic 104–142; BP diastolic 56–77; PULSE 66–82; RESP 18–20; TEMP 36.6–37.2; O2SAT 82–97; BMI 25.7
--- NOTE | ~2021-05-21 | CT_ITS ---
EXAMINATION: CT ANGIOGRAM OF THE CHEST WITH AND WITHOUT CONTRAST (CT PULMONARY ANGIOGRAM FOR PE) CLINICAL INFORMATION: Reason for Exam pt c sob/calvin/hypoxia ? pe COMPARISON: Previous chest x-ray most recent earlier the same day TECHNIQUE: Prior to contrast administration, noncontrast localization images were obtained. Subsequently, multidetector volumetric imaging was performed from the thoracic inlet to below the diaphragms following the administration of 65 mL Omnipaque 350 intravenous contrast. No contrast reaction reported Sagittal, coronal, and MIP oblique sagittal reformatted images were obtained on the CT workstation, uploaded to PACS, and reviewed. This CT examination was performed using dose optimization techniques as appropriate, variously including the following: *Automated exposure control *Adjustment of mA and/or kV according to patient size (this includes techniques or standardized protocols for targeted exams where dose is matched to indication/reason for exam; i.e. extremities or head) *Use of iterative reconstruction technique Total exam dose-length product 362 mGy-cm FINDINGS: QUALITY OF STUDY/CONTRAST BOLUS: Satisfactory. PULMONARY ARTERIES: No central or segmental pulmonary emboli. THORACIC AORTA: No aneurysm or dissection. LUNG: There are increased interstitial markings with interlobular septal thickening. There are scattered areas of increased groundglass attenuation. PLEURA: There are small bilateral pleural effusions, right greater than left. MEDIASTINUM: The heart is slightly enlarged.. No pericardial effusion. No hilar or mediastinal lymphadenopathy. No evidence of septal bowing or right heart strain. There may be a small esophageal hernia. CHEST WALL/AXILLA: No chest wall mass or enlarged axillary lymph nodes. Left subclavian AICD device. OSSEOUS STRUCTURES: There are degenerative changes of the spine. There is an old healed right proximal humerus fracture. UPPER ABDOMEN: Unremarkable. No reflux of contrast into the hepatic veins to suggest elevated right heart pressures. CT/CT angio chest PE protocol IMPRESSION: No pulmonary embolism. Probable mild CHF. VTE: negative
--- NOTE | ~2021-05-21 | XR_ITS ---
EXAMINATION: XR CHEST CLINICAL INFORMATION: Shortness of breath COMPARISON: September 23, 2020 TECHNIQUE: AP portable view of the chest was obtained. FINDINGS: The cardiopericardial silhouette is enlarged. There is some bronchial wall thickening present centrally. There is bibasilar disease with what appear to be small chronic bilateral effusions versus pleural thickening. No pneumothorax is evident. Unipolar pacemaker in place. XR/XR chest 1V IMPRESSION: Cardiomegaly with pulmonary vascular congestion. No chip airspace edema identified. Question possible superimposed acute interstitial disease.
--- NOTE | 2021-05-21 09:22 | ECG_ITS ---
Test Reason : sob Blood Pressure : / mmHG Vent. Rate : 073 BPM Atrial Rate : 073 BPM P-R Int : 246 ms QRS Dur : 114 ms QT Int : 402 ms P-R-T Axes : 006 -26 105 degrees QTc Int : 442 ms Sinus rhythm with 1st degree A-V block Low voltage QRS Cannot rule out Anteroseptal infarct , age undetermined Abnormal ECG When compared with ECG of 29-OCT-2018 07:43, Minimal criteria for Anteroseptal infarct are now Present Nonspecific T wave abnormality no longer evident in Inferior leads Referred By: Kay Andrews Electronically Signed By:Nithin Abdi
--- NOTE | 2021-05-21 09:53 | ED_ITS ---
HPI - SOB/Dyspnea General Chief Complaint: Chest Pain Stated Complaint: SOB/heart issues Time Seen by Provider: 05/21/21 09:10 Source: patient and family Mode of arrival: ambulatory Limitations: no limitations History of Present Illness HPI Narrative: 65-year-old male with multiple medical problems which include chr onic heart failure with reduced ejection fraction, hypertension, nonischemic cardiomyopathy, nonsustained ventricular tachycardia, sustained ventricular tachycardia, pulmonary embolism with ICD in place currently on Xarelto and bumetanide 2mg BID, CKD, hypercholesterolemia, diabetes type 2, GERD, Mayers's esophagus, BPH, thyroid nodule, tubular adenoma of colon an overweight presenting to the ED with complaints of shortness of breath with dyspnea on exertion/orthopnea for the past few days then this morning at 06:08 his defibrillator went off therefore he came here for further evaluation treatment. He reports he is taking all his medications as prescribed. He reports that the last time his defibrillator went off with approximately 4 years ago and he had to go to [facility] after being transferred from here for multiple cardiac ablations. He denies any fevers, dizziness, headaches, neck pain/stiffness, sore throat, chest pain, palpitations, extremity edema, nausea/ vomiting/diarrhea, abdominal pain, back pain, rashes, recent travel or sick contacts, lower extremity edema or calf tenderness or any other symptoms complaints or concerns at this time. MD elicited complaint: shortness of breath and pain with inspiration Pertinent past history: congestive heart failure, diabetes and other (See above) Onset (ago): hour(s) (Defibrillator went off prior to arrival and other symptoms started a few days ago worse since this morning) Timing: constant and progressively worsening Severity: severe Exacerbating factors: lying flat, exertion, movement, inspiration, talking and deep breaths Relieving factors: nothing Known history of: congestive heart failure, diabetes, DVT and other (See above) Associated symptoms: pain with inspiration, wheezing and orthopnea Treatment prior to arrival: none Related Data Home oxygen amount: none Home Medications Medication Instructions Recorded Confirmed bimatoprost 0.01 % eye drops 1 drp OPHTHALMIC (EYE) BEDTIME ml 04/29/20 05/21/21 acetaminophen 325 mg tablet 650 mg PO Q6H PRN 05/21/21 05/21/21 amiodarone 200 mg tablet 200 mg PO DAILY@1800 05/21/21 05/21/21 bumetanide 2 mg tablet 1 mg PO DAILY 05/21/21 05/21/21 bumetanide 2 mg tablet 2 mg PO BEDTIME 05/21/21 05/21/21 fnbgrixhssux-dbbadjva-wpcyta tablet 1 tab PO DAILY 05/21/21 05/21/21 potassium chloride 20 mEq 40 meq PO DAILY 05/21/21 05/21/21 tablet,extended release(part/cryst) potassium chloride 20 mEq 60 meq PO BEDTIME 05/21/21 05/21/21 tablet,extended release(part/cryst) rivaroxaban 20 mg tablet (Xarelto) 20 mg PO DAILY@1800 05/21/21 05/21/21 rosuvastatin 5 mg tablet 5 mg PO BEDTIME 05/21/21 05/21/21 tamsulosin 0.4 mg capsule 0.4 mg PO BEDTIME 05/21/21 05/21/21 Previous Rx's Medication Instructions Recorded carvedilol 25 mg tablet 25 mg PO BID #180 tab 05/15/21 ivabradine 5 mg tablet (Corlanor) 2.5 mg PO BID 90 Days #90 cap 05/15/21 lisinopril 10 mg tablet 10 mg PO DAILY #90 tab 05/15/21 omeprazole 20 mg capsule,delayed 20 mg PO DAILY #90 cap 05/15/21 release Allergies Allergy/AdvReac Type Severity Reaction Status Date / Time epinephrine [EPINEPHRINE] Allergy Severe CANNOT Verified 05/15/21 10:41 TAKE DUE TO VTACH HX AND AICD SETTINGS metoprolol [METOPROLOL] Allergy Intermediate FLU LIKE Verified 05/15/21 10:41 SYMPTOMS ezetimibe [From ZETIA] AdvReac Intermediate HEAD Verified 05/15/21 10:41 FUZZY Gncptvy-KYJ-ExH Reductase AdvReac Intermediate HEAD Verified 05/15/21 10:41 Inhibitor FUZZY [EXVHFLC-HIO-PKT REDUCTASE INHIBITOR] naproxen AdvReac Unknown water Verified 05/15/21 10:41 retention Review of Systems Review of Systems: Constitutional : Positive fatigue/malaise, No Weight loss, No Fever, No Chills, No Night Sweats ENT/Mouth : No Hearing loss, No Ear Pain, No Nasal Congestion, No Sinus Pain, No Hoarseness, No sore throat, No Rhinorrhea, No Swallowing Difficulty Eyes: No Eye Pain, No Swelling, No Redness, No Foreign Body, No Discharge, No Vision Changes Cardiovascular : Positive shortness of breath/dyspnea on exertion/orthopnea, No Chest Pain, No Edema, No Palpitations Respiratory : Positive wheezing, positive dyspnea, No Cough, No Sputum, No Smoke Exposure Gastrointestinal : No Nausea, No Vomiting, No Diarrhea, No Constipation, No abdominal Pain, No Hematochezia, No Melena Genitourinary : no irregular bleeding, No Dysuria, No Urinary Frequency, No Hematuria, No Urinary Incontinence, No Urgency, No Flank Pain, No Urinary Flow Changes, No Hesitancy Musculoskeletal : No joint pain, No Myalgias, No Joint Swelling Skin : No Skin Lesions, No rash Neuro : Positive general weakness, no focal weakness, No Numbness, No Paresthesias, No Loss of Consciousness, No Dizziness, No Headache Psych : No Anxiety/Panic, No Depression, No SI/HI/AH/VH, No Social Issues, Heme/Lymph: No Bruising, No Bleeding,No Lymphadenopathy Endocrine : No Polyuria, No Polydipsia, No Temperature Intolerance Yes all other systems are reviewed and are negative [facility] Past Medical History Attestation statement: The following information was validated with the patient. Medical History Mayers's esophagus BPH (benign prostatic hyperplasia) Chronic HFrEF (heart failure with reduced ejection fraction) CKD (chronic kidney disease) GERD (gastroesophageal reflux disease) High prostate specific antigen (PSA) History of pulmonary embolism Hypercholesterolemia Hypertension ICD (implantable cardioverter-defibrillator) in place Non-toxic multinodular goiter Nonischemic cardiomyopathy NSVT (nonsustained ventricular tachycardia) Overweight (BMI 25.0-29.9) Pain in left testicle Shoulder fracture, right Sialoadenitis Sustained VT (ventricular tachycardia) Thyroid nodule Tubular adenoma of colon Type 2 diabetes mellitus with hyperglycemia Surgical History H/O left inguinal hernia repair History of colonoscopy History of loop recorder (~2013) History of prostate surgery History of tonsillectomy and adenoidectomy Hx of cardiac cath (~2013) Family History Family History Father CVD (cardiovascular disease) Leukemia Cardiomyopathy HTN (hypertension) Mother HTN (hypertension) Social History Social History Housing: House Alcohol intake: never Patient Tobacco Use Status: Never used Tobacco Tobacco use type: Cigarette e-Cigarette/Vaping Use: Never Used Second Hand Smoke Exposure: No Use of substances other than those prescribed or required for medical reasons: No Advance Directives: Yes Advance Directives Information Provided: No Advance Directives on File: No Advance Directives Date on File: 07/16/19 Current occupational status: retired Physical Exam Vital Signs: Vital Signs: Last Vital Signs Temp 97.8 F 05/21/21 09:14 Pulse 69 05/21/21 12:32 Resp 20 05/21/21 12:32 BP 116/60 05/21/21 12:32 Pulse Ox 93 05/21/21 12:32 BMI result Body Mass Index 25.7 vital signs have been reviewed as normal and appeared to be correct. Blood pressure normal. Heart rate normal. Respiration rate normal. Temperature no rmal. Oxygen saturation hypoxic at 82% on room air placed on 2 L of nasal cannula oxygen and now at 96-98% on 2 L Appearance: Alert. Oriented X3. In acute respiratory distress Head: Normal external exam. Normocephalic. Atraumatic. Eyes: PERRLA. EOMI. Conjunctiva and sclera normal. Eyelids normal. ENT: EAC normal. TM's Normal. Pharynx normal. Uvula midline. Moist mucous membranes. No trismus noted. No drooling noted. No muffled voice noted. Neck: Normal inspection. Neck supple. FROM. No adenopathy. Thyroid Normal. No meningeal signs. No neck mass noted. CVS: Normal heart rate and rhythm. Heart sound normal. Pulses normal throughout. No murmurs/rales/gallops. Respiratory: Patient acute respiratory distress with inspiratory and expiratory wheezing throughout with decreased breath sounds. No rales/rhonchi noted. Chest is nontender. No accessory muscle use is noted. No crepitus is noted. No stridor is noted. Abdomen: Soft and nontender. Bowel sounds normal in all 4 quadrants. No distention noted. No organomegaly noted. No visible injury noted. Back: No CVA tenderness. Full range of motion noted. No rashes/lesion/induration/fluctuance or signs of infection noted. Skin: Skin warm and dry. Normal skin color. Normal skin turgor. No rashes/l esions/lacerations noted. Extremities: No lower extremity edema. No calf tenderness is noted. Extremities exhibit normal range of motion. Extremities nontender. Neuro: Oriented X 3. No motor deficit. No sensory deficit. Reflexes normal. Normal steady gait. No focal neuro deficits noted. Vascular: + radial pulses/+ 2 distal pedal pulses/+2 dorsalis pedis b/l. Normal cap refill. No cyanosis noted to upper extremity nails and lower extremity toes nails. Course Reevaluation(s) Reevaluation #1: - labs reviewed magnesium 3.0. BNP 906. Troponin 12.8. Otherwise all other labs within normal limits. ABG within normal limits. UA within normal limits no evidence of UTI. Patient negative for COVID/RSV/flu. - chest x-ray revealed cardiomegaly with pulmonary vascular congestion no chip airspace edema identified. Question possible superimposed acute interstitial disease. Otherwise no other acute processes were noted. - CTA of chest for PE revealed scattered ground-glass attenuation and small bilateral pleural effusions right greater than left and the slight Sonali enlarged heart and a small esophageal hernia and mild CHF otherwise no evidence of a PE - patient has received an hour long breathing treatment, 125 mg Solu-Medrol, 2 g of magnesium and 2 mg of bumetanide and he reports he feels much better symptoms have improved - therefore at this time will admit for acute CHF exacerbation. Patient understands agrees with this plan. I discussed this case with Dr. Mon Time: 13:08 MDM - SOB/Dyspnea MDM Narrative Medical decision making narrative: 9:30am - 65-year-old male with presenting to the ED with complaints of shortness of breath with dyspnea on exertion/orthopnea for the past few days then this morning at 06:08 his defibrillator went off therefore he came here for further evaluation treatment. On arrival the nurse noted that the patient was hypoxic at 82% on room air patient was placed on 2 L of nasal cannula oxygen and is now satting at 96-98% on the 2 L of nasal cannula oxygen. Otherwise all other vitals are within normal limits. No other signs of distress. Patient is noted to have wheezing on inspiratory and expiratory. With decreased breath sounds. No accessory muscle usage noted. CV RRR. Abdomen soft and nontender. No lower extremity edema or calf tenderness is noted. Plan: Labs, breathing treatment, 125 mg of IV Solu-Medrol and 2 g of magnesium obtain an ABG, COVID/RSV/flu swab and re-evaluate. Differential Diagnosis Differential diagnosis: Likely acute exacerbation of chronic obstructive airways disease, congestive heart failure, pneumonia, pulmonary embolism, pleural effusion and anemia Medical Records Attestation: I reviewed the patient's medical records. Lab Data Attestation: I reviewed the patient's lab results. Result diagrams: 05/21/21 10:14 05/21/21 11:02 Labs: Lab Results 05/21/21 05/21/21 05/21/21 Range/Units 10:06 10:14 10:14 WBC 10.7 (4.8-10.8) X10*3/uL RBC 4.66 (4.60-5.80) X10*6/uL Hgb 14.8 (14.0-18.0) g/dl Hct 45.9 (42.0-52.0) % MCV 98.5 H (80.0-98.0) fL MCH 31.8 (27.0-33.0) pg MCHC 32.2 (31.0-36.0) g/dl RDW 13.2 (11.0-16.0) % Plt Count 141 L (160-400) X10*3/uL MPV 12.4 (9.4-12.4) fL Immature Gran % (Auto) 0.8 H (0.0-0.4) % Neut % (Auto) 89.8 H (45-73) % Lymph % (Auto) 5.5 L (20-40) % [place] % (Auto) 3.2 (2-11) % Eos % (Auto) 0.4 (0-4) % Baso % (Auto) 0.3 (0-2) % Lymph # (Auto) 0.6 L (1.2-4.9) X10*3/uL [place] # (Auto) 0.3 (0.1-1.2) X10*3/uL Eos # (Auto) 0.0 (0.0-0.4) X10*3/uL Baso # (Auto) 0.0 (0.0-0.2) X10*3/uL Abs Immat Gran (auto) 0.09 H (0.00-0.03) X10*3/uL Absolute Neuts (auto) 9.7 H (2.0-8.3) x10*3/uL Absolute Nucleated RBC 0.000 (0.0-0.012) X10*3/uL Nucleated RBC % (auto) 0.0 (0.0-0.2) /100WBC PT (9.9-13.0) SEC INR (0.9-1.1) O2 Saturation 94.0 % ABG pH at Pt Temp 7.47 H (7.35-7.45) ABG pH (Temp Correct) 7.47 H (7.35-7.45) ABG pCO2 at Pt Temp 32 (32-45) mmHg ABG pCO2 (Temp Corrct 33 (32-45) mmHg ABG pO2 at Pt Temp 71 L (83-108) mmHg ABG pO2 (Temp Correct 72 L (83-108) ABG HCO3 24 (22-26) mmol/L ABG Base Excess (Actual) 1.3 mmol/L Sodium (135-145) mmol/L Potassium (3.3-5.1) mmol/L Chloride (96-108) mmol/L Carbon Dioxide (22-29) mmol/L Anion Gap (12-20) BUN (9-16) mg/dL Creatinine (0.5-1.4) mg/dL Estim Creat Clear Calc Estimated GFR Random Glucose (60-115) mg/dL Lactic Acid 1.3 (0.5-2.0) mmol/L Calcium (8.4-10.2) mg/dL Magnesium (1.6-2.6) mg/dL Total Bilirubin (0.0-1.0) mg/dL AST (5-37) U/L ALT (0-40) U/L Alkaline Phosphatase (39-117) U/L Troponin I High Sens (<3.5-35.0) ng/L B-Natriuretic Peptide (<100) pg/mL Total Protein (6.5-8.0) g/dL Albumin (3.5-5.0) g/dL Urine Color Urine Appearance Urine pH (5.0-8.0) Ur Specific [place] (1.005-1.025) Urine Protein (NEG-TRACE) MG/DL Urine Glucose (UA) (NEG) MG/DL Urine Ketones (NEG) MG/DL Urine Blood (NEG) Urine Nitrite (NEG) Ur Leukocyte Esterase (NEG) Influenza Type A (PCR) (Negative) Influenza Type B (PCR) (Negative) RSV RNA Qual (PCR) (Negative) SARS-CoV-2 RNA (RT-PCR) (Negative) 05/21/21 05/21/21 05/21/21 Range/Units 10:14 10:34 11:02 WBC (4.8-10.8) X10*3/uL RBC (4.60-5.80) X10*6/uL Hgb (14.0-18.0) g/dl Hct (42.0-52.0) % MCV (80.0-98.0) fL MCH (27.0-33.0) pg MCHC (31.0-36.0) g/dl RDW (11.0-16.0) % Plt Count (160-400) X10*3/uL MPV (9.4-12.4) fL Immature Gran % (Auto) (0.0-0.4) % Neut % (Auto) (45-73) % Lymph % (Auto) (20-40) % [place] % (Auto) (2-11) % Eos % (Auto) (0-4) % Baso % (Auto) (0-2) % Lymph # (Auto) (1.2-4.9) X10*3/uL [place] # (Auto) (0.1-1.2) X10*3/uL Eos # (Auto) (0.0-0.4) X10*3/uL Baso # (Auto) (0.0-0.2) X10*3/uL Abs Immat Gran (auto) (0.00-0.03) X10*3/uL Absolute Neuts (auto) (2.0-8.3) x10*3/uL Absolute Nucleated RBC (0.0-0.012) X10*3/uL Nucleated RBC % (auto) (0.0-0.2) /100WBC PT 16.2 H (9.9-13.0) SEC INR 1.4 H (0.9-1.1) O2 Saturation % ABG pH at Pt Temp (7.35-7.45) ABG pH (Temp Correct) (7.35-7.45) ABG pCO2 at Pt Temp (32-45) mmHg ABG pCO2 (Temp Corrct (32-45) mmHg ABG pO2 at Pt Temp (83-108) mmHg ABG pO2 (Temp Correct (83-108) ABG HCO3 (22-26) mmol/L ABG Base Excess (Actual) mmol/L Sodium (135-145) mmol/L Potassium (3.3-5.1) mmol/L Chloride (96-108) mmol/L Carbon Dioxide (22-29) mmol/L Anion Gap (12-20) BUN (9-16) mg/dL Creatinine (0.5-1.4) mg/dL Estim Creat Clear Calc Estimated GFR Random Glucose (60-115) mg/dL Lactic Acid (0.5-2.0) mmol/L Calcium (8.4-10.2) mg/dL Magnesium (1.6-2.6) mg/dL Total Bilirubin (0.0-1.0) mg/dL AST (5-37) U/L ALT (0-40) U/L Alkaline Phosphatase (39-117) U/L Troponin I High Sens 12.8 (<3.5-35.0) ng/L B-Natriuretic Peptide 906 H (<100) pg/mL Total Protein (6.5-8.0) g/dL Albumin (3.5-5.0) g/dL Urine Color Urine Appearance Urine pH (5.0-8.0) Ur Specific [place] (1.005-1.025) Urine Protein (NEG-TRACE) MG/DL Urine Glucose (UA) (NEG) MG/DL Urine Ketones (NEG) MG/DL Urine Blood (NEG) Urine Nitrite (NEG) Ur Leukocyte Esterase (NEG) Influenza Type A (PCR) NEGATIVE (Negative) Influenza Type B (PCR) NEGATIVE (Negative) RSV RNA Qual (PCR) NEGATIVE (Negative) SARS-CoV-2 RNA (RT-PCR) NEGATIVE (Negative) 05/21/21 05/21/21 05/21/21 Range/Units 11:02 12:51 13:17 WBC (4.8-10.8) X10*3/uL RBC (4.60-5.80) X10*6/uL Hgb (14.0-18.0) g/dl Hct (42.0-52.0) % MCV (80.0-98.0) fL MCH (27.0-33.0) pg MCHC (31.0-36.0) g/dl RDW (11.0-16.0) % Plt Count (160-400) X10*3/uL MPV (9.4-12.4) fL Immature Gran % (Auto) (0.0-0.4) % Neut % (Auto) (45-73) % Lymph % (Auto) (20-40) % [place] % (Auto) (2-11) % Eos % (Auto) (0-4) % Baso % (Auto) (0-2) % Lymph # (Auto) (1.2-4.9) X10*3/uL [place] # (Auto) (0.1-1.2) X10*3/uL Eos # (Auto) (0.0-0.4) X10*3/uL Baso # (Auto) (0.0-0.2) X10*3/uL Abs Immat Gran (auto) (0.00-0.03) X10*3/uL Absolute Neuts (auto) (2.0-8.3) x10*3/uL Absolute Nucleated RBC (0.0-0.012) X10*3/uL Nucleated RBC % (auto) (0.0-0.2) /100WBC PT (9.9-13.0) SEC INR (0.9-1.1) O2 Saturation % ABG pH at Pt Temp (7.35-7.45) ABG pH (Temp Correct) (7.35-7.45) ABG pCO2 at Pt Temp (32-45) mmHg ABG pCO2 (Temp Corrct (32-45) mmHg ABG pO2 at Pt Temp (83-108) mmHg ABG pO2 (Temp Correct (83-108) ABG HCO3 (22-26) mmol/L ABG Base Excess (Actual) mmol/L Sodium 141 (135-145) mmol/L Potassium 4.4 (3.3-5.1) mmol/L Chloride 111 H (96-108) mmol/L Carbon Dioxide 20 L (22-29) mmol/L Anion Gap 14 (12-20) BUN 21 H (9-16) mg/dL Creatinine 1.21 (0.5-1.4) mg/dL Estim Creat Clear Calc 65.6 Estimated GFR > 60 Random Glucose 137 H (60-115) mg/dL Lactic Acid (0.5-2.0) mmol/L Calcium 8.9 (8.4-10.2) mg/dL Magnesium 3.0 H (1.6-2.6) mg/dL Total Bilirubin 0.9 (0.0-1.0) mg/dL AST 18 (5-37) U/L ALT 19 (0-40) U/L Alkaline Phosphatase 59 (39-117) U/L Troponin I High Sens 23.0 D (<3.5-35.0) ng/L B-Natriuretic Peptide (<100) pg/mL Total Protein 6.4 L (6.5-8.0) g/dL Albumin 3.9 (3.5-5.0) g/dL Urine Color YELLOW Urine Appearance CLEAR Urine pH 7.5 (5.0-8.0) Ur Specific [place] 1.010 (1.005-1.025) Urine Protein NEG (NEG-TRACE) MG/DL Urine Glucose (UA) NEG (NEG) MG/DL Urine Ketones NEG (NEG) MG/DL Urine Blood NEG (NEG) Urine Nitrite NEG (NEG) Ur Leukocyte Esterase NEG (NEG) Influenza Type A (PCR) (Negative) Influenza Type B (PCR) (Negative) RSV RNA Qual (PCR) (Negative) SARS-CoV-2 RNA (RT-PCR) (Negative) Imaging Data Chest x-ray: Attestation: I personally reviewed and interpreted this imaging study as follows: Radiologist's impression: FINDINGS: The cardiopericardial silhouette is enlarged. There is some bronchial wall thickening present centrally. There is bibasilar disease with what appear to be small chronic bilateral effusions versus pleural thickening. No pneumothorax is evident. Unipolar pacemaker in place. XR/XR chest 1V IMPRESSION: Cardiomegaly with pulmonary vascular congestion. No chip airspace edema identified. Question possible superimposed acute interstitial disease. CT of chest for PE: Attestation: I personally reviewed and interpreted this imaging study as follows: Radiologist's impression: FINDINGS: QUALITY OF STUDY/CONTRAST BOLUS: Satisfactory. PULMONARY ARTERIES: No central or segmental pulmonary emboli.? THORACIC AORTA: No aneurysm or dissection. LUNG: There are increased interstitial markings with interlobular septal thickening. There are scattered areas of increased groundglass attenuation. PLEURA: There are small bilateral pleural effusions, right greater than left. MEDIASTINUM: The heart is slightly enlarged..? No pericardial effusion. ?No hilar or mediastinal lymphadenopathy.? No evidence of septal bowing or right heart strain. There may be a small esophageal hernia. CHEST WALL/AXILLA: No chest wall mass or enlarged axillary lymph nodes. Left subclavian AICD device. OSSEOUS STRUCTURES: There are degenerative changes of the spine. There is an old healed right proximal humerus fracture.? UPPER ABDOMEN: Unremarkable.? No reflux of contrast into the hepatic veins to suggest elevated right heart pressures. CT/CT angio chest PE protocol IMPRESSION: No pulmonary embolism. Probable mild CHF. ? VTE: negative ECG Data Attestation: I personally reviewed and interpreted this ECG as follows: ECG interpretation date: 05/21/21 ECG interpretation time: 09:39 Interpretation: Sinus rhythm with 1st degree AV block with a ventricular rate of 73 with low voltage QRS. No acute ischemic change are noted. Critical Care Time Critical Care Time Critical Care Time: Yes Total Critical Care Time: 60 Attestation: I personally attest to this time spent taking care of the patient Discharge Plan Discharge Clinical Impression: Acute exacerbation of CHF (congestive heart failure), Hypoxia Patient Disposition: Admitted As Inpatient
[2021-05-21 10:11] LABS: ABG Base Excess 1.3 mmol/L; ABG HCO3 24 mmol/L (22-26); ABG pCO2 32 mmHg (32-45); ABG pCO2 TC 33 mmHg (32-45); ABG pH 7.47 (7.35-7.45); ABG pH TC 7.47 (7.35-7.45); ABG pO2 71 mmHg (83-108); ABG pO2 TC 72 (83-108)
[2021-05-21 10:12] LABS: ABG Refer to POC result
[2021-05-21 10:27] LABS: MANUAL DIFF FLAG NO
[2021-05-21 10:30] LABS: Basophils Percent Auto 0.3 % (0-2); Eosinophils Percent Auto 0.4 % (0-4); Hematocrit 45.9 % (42.0-52.0); Hemoglobin 14.8 g/dl (14.0-18.0); Imm Gran Abs Auto 0.09 X10*3/uL (0.00-0.03); Imm Gran Pct Auto 0.8 % (0.0-0.4); Lymphocytes Absolute Auto 0.6 X10*3/uL (1.2-4.9); Lymphocytes Percent Auto 5.5 % (20-40); Mean Corpuscular HGB Conc 32.2 g/dl (31.0-36.0); Mean Corpuscular Hemoglobin 31.8 pg (27.0-33.0); Mean Corpuscular Volume 98.5 fL (80.0-98.0); Mean Platelet Volume 12.4 fL (9.4-12.4); Monocytes Absolute Auto 0.3 X10*3/uL (0.1-1.2); Monocytes Percent Auto 3.2 % (2-11); Neutrophils Absolute Auto 9.7 x10*3/uL (2.0-8.3); Neutrophils Percent Auto 89.8 % (45-73); Platelet Count 141 X10*3/uL (160-400); Red Blood Count 4.66 X10*6/uL (4.60-5.80); Red Cell Distribution Width 13.2 % (11.0-16.0); White Blood Count 10.7 X10*3/uL (4.8-10.8)
[2021-05-21 10:36] LABS: Lactic Acid 1.3 mmol/L (0.5-2.0)
[2021-05-21] MEDS: methylPREDNISolone Sod Succ 125 MG/2 ML VIAL IVPUSH (10:40)
[2021-05-21] MEDS: Magnesium Sulfate/H2O 2 GM/50 ML PIGGYBACK IV (10:40)
--- NOTE | 2021-05-21 10:42 | PC.NURSE ---
Pt alert orientd.Denies pain or discomfort. States SOB, LS clear. Skin pwd. NSR on tele with occasional PVCs. States 0600 this AM had defibrillator go off, took an extra Amiodarone at that time. Sat 95% on 2lpm via [place]
[2021-05-21 10:55] LABS: B Type Natriuretic Peptide 906 pg/mL (<100); Troponin-I High Sensitivity 12.8 ng/L (<3.5-35.0)
[2021-05-21 11:11] LABS: INTERNATIONAL NORM RATIO 1.4 (0.9-1.1); Prothrombin Time 16.2 SEC (9.9-13.0)
[2021-05-21 11:18] LABS: Influenza A PCR NEGATIVE (Negative); Influenza B PCR NEGATIVE (Negative); Resp Syncy Virus RNA Qual PCR NEGATIVE (Negative); SARS COV2 PCR INHOUSE NEGATIVE (Negative)
[2021-05-21 11:27] LABS: Alanine Aminotransferase 19 U/L (0-40); Albumin Level 3.9 g/dL (3.5-5.0); Alkaline Phosphatase 59 U/L (39-117); Anion Gap 14 (12-20); Aspartate Amino Transferase 18 U/L (5-37); Bilirubin Total 0.9 mg/dL (0.0-1.0); Blood Urea Nitrogen 21 mg/dL (9-16); Calcium 8.9 mg/dL (8.4-10.2); Carbon Dioxide 20 mmol/L (22-29); Chloride 111 mmol/L (96-108); Creatinine Clr Calc Pharmacy 65.6; Estimated Glomerular Filt Rate > 60; Glucose Random 137 mg/dL (60-115); Potassium 4.4 mmol/L (3.3-5.1); Sodium 141 mmol/L (135-145); Total Protein 6.4 g/dL (6.5-8.0)
[2021-05-21] MEDS: iohexoL 350 MG/ML 100 ML INFUS..BTL 65 ML IV (12:17)
--- NOTE | 2021-05-21 12:25 | PHA.MEDREC ---
Pharmacy Consult ? Medication Reconciliation Pharmacy has completed the medication reconciliation. There are no remarkable issue for provider's attention. Patient carries list with him. Current Bumex dose is 1 mg in the AM and 2 mg in the PM. He takes KCl 40 mEq in the AM and 60 mEq in the PM. Patient reports that he took his amiodarone this morning even though he usually takes it at night. Destiney Rodríguez, GigiD
[2021-05-21] MEDS: Bumetanide 1 MG/4 ML VIAL 2 MG IVPUSH (12:30)
[2021-05-21 12:56] LABS: Appearance Urine CLEAR; Color Urine YELLOW; Glucose Urine UA NEG (NEG); Leukocyte Esterase Urine NEG (NEG); Nitrite Urine NEG (NEG); PH 7.5 (5.0-8.0); Urine Blood NEG (NEG); Urine Ketones NEG (NEG); Urine Protein NEG (NEG-TRACE)
--- NOTE | 2021-05-21 15:40 | PC.NURSE ---
Seen by Dr Hess Pt continues to deny pain/discomfort but reports mild SOB worse with exertion. Pt noted with occasional runs 3-4 beat runs of Vtach on tele, asymptomatic with episodes. Kay MENDES made aware by secretary bookkeeper
--- NOTE | 2021-05-21 15:54 | P.HPHOSP_ITS ---
History of Present Illness Date of Service: 05/21/21 Attending physician on admission: Imelda Hess Chief Complaint: Shortness of breath 65-year-old male with past medical history significant for chronic heart failure with reduced ejection fraction, hypertension, nonischemic cardiomyopathy, nonsustained ventricular tachycardia, sustained ventricular tachycardia status post ICD, pulmonary embolism on Xarelto, CKD, hypercholesterolemia, diabetes type 2, GERD, Mayers's esophagus, BPH, thyroid nodule, tubular adenoma of colon and overweight presented to the ED with complaints of shortness of breath worse with exertion, orthopnea times few days duration, then this morning at 06:08 his defibrillator went off therefore he called his hydro mechanic and was referred to [place] [facility] for further evaluation Patient denies associated fever chills no sick contacts denies leg edema, has been coughing mostly dry cough in few days and noted some audible wheeze and shortness of breath with deep breathing, patient admit to medication compliant but lately has been drinking large amount of fluids to stay hydrated since feels thirsty being on Bumex, in the emergency room workup showed elevated BNP 906, troponin 12.[address] chest showed no PE and showed mild congestive heart failure with bilateral pleural effusion , patient treated in the emergency room with 1 dose of IV Bumex 2 mg, IV Solu Medrol, magnesium and updraft treatment, currently feeling better. Review of Systems Review of Systems: General no headache, no dizziness, no fever,no chills. CVS no chest pain, no palpitation. Respiratory dry cough, shortness of breath with deep breathing, orthopnea Gastrointestinal no nausea, no vomiting, no abdominal pain no urinary frequency or urgency Skin no rash Yes all other systems are reviewed and are negative [facility] Medical History Mayers's esophagus BPH (benign prostatic hyperplasia) Chronic HFrEF (heart failure with reduced ejection fraction) CKD (chronic kidney disease) GERD (gastroesophageal reflux disease) High prostate specific antigen (PSA) History of pulmonary embolism Hypercholesterolemia Hypertension ICD (implantable cardioverter-defibrillator) in place Non-toxic multinodular goiter Nonischemic cardiomyopathy NSVT (nonsustained ventricular tachycardia) Overweight (BMI 25.0-29.9) Pain in left testicle Shoulder fracture, right Sialoadenitis Sustained VT (ventricular tachycardia) Thyroid nodule Tubular adenoma of colon Type 2 diabetes mellitus with hyperglycemia Family History Father CVD (cardiovascular disease) Leukemia Cardiomyopathy HTN (hypertension) Mother HTN (hypertension) Pertinent family history: No change from above Surgical History H/O left inguinal hernia repair History of colonoscopy History of loop recorder (~2013) History of prostate surgery History of tonsillectomy and adenoidectomy Hx of cardiac cath (~2013) Social History Housing: House Alcohol intake: never Patient Tobacco Use Status: Never used Tobacco Tobacco use type: Cigarette e-Cigarette/Vaping Use: Never Used Second Hand Smoke Exposure: No Use of substances other than those prescribed or required for medical reasons: No Advance Directives: Yes Advance Directives Information Provided: No Advance Directives on File: No Advance Directives Date on File: 07/16/19 Current occupational status: retired Meds Allergies Allergy/AdvReac Type Severity Reaction Status Date / Time epinephrine [EPINEPHRINE] Allergy Severe CANNOT Verified 05/15/21 10:41 TAKE DUE TO VTACH HX AND AICD SETTINGS metoprolol [METOPROLOL] Allergy Intermediate FLU LIKE Verified 05/15/21 10:41 SYMPTOMS ezetimibe [From ZETIA] AdvReac Intermediate HEAD Verified 05/15/21 10:41 FUZZY Whxnzfi-EPD-SxH Reductase AdvReac Intermediate HEAD Verified 05/15/21 10:41 Inhibitor FUZZY [NFHBEUH-TVW-IUX REDUCTASE INHIBITOR] naproxen AdvReac Unknown water Verified 05/15/21 10:41 retention Active Medications: Current Medications Acetaminophen (Acetaminophen 325 Mg Tablet) 650 mg PO Q6H PRN PRN Reason: Pain, Mild (Pain Scale 1-3) Amiodarone HCl (Amiodarone Hcl 200 Mg Tablet) 200 mg PO DAILY@1800 DENNISE Carvedilol (Carvedilol 25 Mg Tablet) 25 mg PO BID DENNISE; Protocol Lisinopril (Lisinopril 10 Mg Tablet) 10 mg PO DAILY DENNISE; Protocol Multivitamins/Vitamin C (Multivitamin Tablet) 1 tab PO DAILY DENNISE Non-Formulary Medication (Bimatoprost) 1 drop EYE-BOTH BEDTIME DENNISE Non-Formulary Medication (Ivabradine [Corlanor]) 2.5 mg PO BID [facility] Non-Formulary Medication (Rosuvastatin) 5 mg PO BEDTIME DENNISE Omeprazole (Omeprazole 20 Mg Capsule.Dr) 20 mg PO DAILY [facility] Ondansetron HCl (Ondansetron Hcl 4 Mg/2 Ml Vial) 4 mg IVPUSH Q8H PRN PRN Reason: Nausea and Vomiting Pharmacy Consult (Consult Rx Perform Med Rec) 1 each MISCELLANE ONCE PRN PRN Reason: Consult order Potassium Chloride (Potassium Chloride Er 20 Meq Tab.Er.Prt) 40 meq PO DAILY [facility] Potassium Chloride (Potassium Chloride Er 20 Meq Tab.Er.Prt) 60 meq PO BEDTIME [facility] Rivaroxaban (Rivaroxaban 20 Mg Tablet) 20 mg PO DAILY@1800 [facility] Sodium Chloride (0.9 % Sodium Chloride Flush 3 Ml Syringe) 3 ml IVFLUSH QSHIFT [facility] Tamsulosin HCl (Tamsulosin Hcl 0.4 Mg Capsule) 0.4 mg PO BEDTIME [facility] Home Medications Medication Instructions Recorded Confirmed Last Taken Type bimatoprost 0.01 % eye drops 1 drp OPHTHALMIC (EYE) BEDTIME ml 04/29/20 05/21/21 05/20/21 History acetaminophen 325 mg tablet 650 mg PO Q6H PRN 05/21/21 05/21/21 Unknown History amiodarone 200 mg tablet 200 mg PO DAILY@1800 05/21/21 05/21/21 05/21/21 History bumetanide 2 mg tablet 1 mg PO DAILY 05/21/21 05/21/21 05/21/21 History bumetanide 2 mg tablet 2 mg PO BEDTIME 05/21/21 05/21/21 05/20/21 History cpmxoylhosgw-gaoogfyg-guwcxd tablet 1 tab PO DAILY 05/21/21 05/21/21 05/21/21 History potassium chloride 20 mEq 40 meq PO DAILY 05/21/21 05/21/21 05/21/21 History tablet,extended release(part/cryst) potassium chloride 20 mEq 60 meq PO BEDTIME 05/21/21 05/21/21 05/20/21 History tablet,extended release(part/cryst) rivaroxaban 20 mg tablet (Xarelto) 20 mg PO DAILY@1800 05/21/21 05/21/21 05/20/21 History rosuvastatin 5 mg tablet 5 mg PO BEDTIME 05/21/21 05/21/21 05/20/21 History tamsulosin 0.4 mg capsule 0.4 mg PO BEDTIME 05/21/21 05/21/21 05/20/21 History Physical Exam Vital Signs and Narrative: Vital Signs: Last Vital Signs Temp 97.8 F 05/21/21 09:14 Pulse 73 05/21/21 15:32 Resp 18 05/21/21 15:32 BP 142/56 H 05/21/21 15:32 Pulse Ox 93 05/21/21 12:32 BMI result Body Mass Index 25.7 General awake alert x3, mild respiratory distress Neck positive JVD. CVS regular rate rhythm, Respiratory bibasilar crackles,no respiratory distress, no wheeze, no rhonchi. Gastrointestinal abdomen soft, mildly distended, nontender, bowel sounds aud ible, no guarding , no rigidity. Extremities no edema. Neuro nonfocal Skin no rash Psych appropriate affect Results Labs CBC and Chem 7: 05/21/21 10:14 05/21/21 11:02 Labs: Laboratory Results - last 24 hr 05/21/21 05/21/21 05/21/21 10:06 10:14 10:14 MCV 98.5 H MCH 31.8 MCHC 32.2 RDW 13.2 Plt Count 141 L MPV 12.4 Immature Gran % (Auto) 0.8 H Neut % (Auto) 89.8 H Lymph % (Auto) 5.5 L [place] % (Auto) 3.2 Eos % (Auto) 0.4 Baso % (Auto) 0.3 Lymph # (Auto) 0.6 L [place] # (Auto) 0.3 Eos # (Auto) 0.0 Baso # (Auto) 0.0 Abs Immat Gran (auto) 0.09 H Absolute Neuts (auto) 9.7 H Absolute Nucleated RBC 0.000 Nucleated RBC % (auto) 0.0 PT INR O2 Saturation 94.0 ABG pH at Pt Temp 7.47 H ABG pH (Temp Correct) 7.47 H ABG pCO2 at Pt Temp 32 ABG pCO2 (Temp Corrct 33 ABG pO2 at Pt Temp 71 L ABG pO2 (Temp Correct 72 L ABG HCO3 24 ABG Base Excess (Actual) 1.3 Anion Gap Estim Creat Clear Calc Estimated GFR Random Glucose Lactic Acid 1.3 Calcium Magnesium Total Bilirubin AST ALT Alkaline Phosphatase Troponin I High Sens B-Natriuretic Peptide Total Protein Albumin Urine Color Urine Appearance Urine pH Ur Specific [place] Urine Protein Urine Glucose (UA) Urine Ketones Urine Blood Urine Nitrite Ur Leukocyte Esterase Influenza Type A (PCR) Influenza Type B (PCR) RSV RNA Qual (PCR) SARS-CoV-2 RNA (RT-PCR) 05/21/21 05/21/21 05/21/21 10:14 10:34 11:02 MCV MCH MCHC RDW Plt Count MPV Immature Gran % (Auto) Neut % (Auto) Lymph % (Auto) [place] % (Auto) Eos % (Auto) Baso % (Auto) Lymph # (Auto) [place] # (Auto) Eos # (Auto) Baso # (Auto) Abs Immat Gran (auto) Absolute Neuts (auto) Absolute Nucleated RBC Nucleated RBC % (auto) PT 16.2 H INR 1.4 H O2 Saturation ABG pH at Pt Temp ABG pH (Temp Correct) ABG pCO2 at Pt Temp ABG pCO2 (Temp Corrct ABG pO2 at Pt Temp ABG pO2 (Temp Correct ABG HCO3 ABG Base Excess (Actual) Anion Gap Estim Creat Clear Calc Estimated GFR Random Glucose Lactic Acid Calcium Magnesium Total Bilirubin AST ALT Alkaline Phosphatase Troponin I High Sens 12.8 B-Natriuretic Peptide 906 H Total Protein Albumin Urine Color Urine Appearance Urine pH Ur Specific [place] Urine Protein Urine Glucose (UA) Urine Ketones Urine Blood Urine Nitrite Ur Leukocyte Esterase Influenza Type A (PCR) NEGATIVE Influenza Type B (PCR) NEGATIVE RSV RNA Qual (PCR) NEGATIVE SARS-CoV-2 RNA (RT-PCR) NEGATIVE 05/21/21 05/21/21 05/21/21 11:02 12:51 13:17 MCV MCH MCHC RDW Plt Count MPV Immature Gran % (Auto) Neut % (Auto) Lymph % (Auto) [place] % (Auto) Eos % (Auto) Baso % (Auto) Lymph # (Auto) [place] # (Auto) Eos # (Auto) Baso # (Auto) Abs Immat Gran (auto) Absolute Neuts (auto) Absolute Nucleated RBC Nucleated RBC % (auto) PT INR O2 Saturation ABG pH at Pt Temp ABG pH (Temp Correct) ABG pCO2 at Pt Temp ABG pCO2 (Temp Corrct ABG pO2 at Pt Temp ABG pO2 (Temp Correct ABG HCO3 ABG Base Excess (Actual) Anion Gap 14 Estim Creat Clear Calc 65.6 Estimated GFR > 60 Random Glucose 137 H Lactic Acid Calcium 8.9 Magnesium 3.0 H Total Bilirubin 0.9 AST 18 ALT 19 Alkaline Phosphatase 59 Troponin I High Sens 23.0 D B-Natriuretic Peptide Total Protein 6.4 L Albumin 3.9 Urine Color YELLOW Urine Appearance CLEAR Urine pH 7.5 Ur Specific [place] 1.010 Urine Protein NEG Urine Glucose (UA) NEG Urine Ketones NEG Urine Blood NEG Urine Nitrite NEG Ur Leukocyte Esterase NEG Influenza Type A (PCR) Influenza Type B (PCR) RSV RNA Qual (PCR) SARS-CoV-2 RNA (RT-PCR) Imaging Radiologist's Impressions: Impressions Chest X-Ray 05/21/21 11:19 IMPRESSION: Cardiomegaly with pulmonary vascular congestion. No chip airspace edema identified. Question possible superimposed acute interstitial disease. Chest CTA 05/21/21 12:21 IMPRESSION: No pulmonary embolism. Probable mild CHF. VTE: negative Assessment and Plan (1) Acute exacerbation of CHF (congestive heart failure): Status: Acute (2) History of pulmonary embolism: Status: Acute (3) Chronic HFrEF (heart failure with reduced ejection fraction): Status: Acute (4) Nonischemic cardiomyopathy: Status: Acute (5) ICD (implantable cardioverter-defibrillator) in place: Status: Acute (6) NSVT (nonsustained ventricular tachycardia): Status: Acute (7) Hypercholesterolemia: Status: Acute (8) Hypertension: Qualifiers: Hypertension type: essential hypertension Qualified Code(s): I10 - Essential (primary) hypertension Status: Acute 65-year-old gentleman with past medical history significant for sustained and nonsustained V-tach status post ICD, history of congestive heart failure with reduced EF presented to [facility] with few days history of shortness of breath orthopnea and diagnosed to have acute congestive heart failure this morning his defibrillator went off therefore came to ER . Acute on chronic congestive heart failure with reduced EF Likely due to high fluid intake, Admit to telemetry No chest pain, normal troponin EKG with no acute ischemic change Will treat with IV Bumex 2 mg b.i.d. Recommend fluid restriction to 1.5 L Follow BMP and BNP/follow daily weight I's and O's. Obtain echocardiogram and cardiology consultation Acute hypoxic respiratory failure Red due to acute CHF continue oxygen and gradually wean patient not on home oxygen. History of nonsustained and sustained V-tach Continue home medication amiodarone, Coreg and Corlanor Keep magnesium above 2 and potassium above 4 History of pulmonary embolus Continue Xarelto Mayers's esophagus/GERD continue PPI Code status full code DVT prophylaxis on Xarelto Quality Stroke Does the patient have a stroke diagnosis?: No VTE Prior VTE?: No VTE Risk Level:: Medical - moderate - high VTE Device Contraindication: Treatment Not Indicated VTE Drug Contraindication: N/A - Med Ordered
[2021-05-21] MEDS: 0.9 % Sodium Chloride Flush 3 ML SYRINGE IVFLUSH ×2 (17:20→23:25)
[2021-05-21] MEDS: Bumetanide 1 MG TABLET 2 MG PO (17:30)
[2021-05-21] MEDS: Amiodarone HCL 200 MG TABLET PO (17:31)
[2021-05-21] MEDS: Rivaroxaban 20 MG TABLET PO (17:46)
--- NOTE | 2021-05-21 17:59 | PC.NURSE ---
At home meds including Corlanor to be brought in by pt spouse toorrow morning
[2021-05-21] MEDS: Atorvastatin Calcium 20 MG TABLET PO (21:22)
[2021-05-21] MEDS: Tamsulosin HCL 0.4 MG CAPSULE PO (21:23)
[2021-05-21] MEDS: Potassium Chloride ER 20 MEQ TAB.ER.PRT 60 MEQ PO (21:23)
[2021-05-21] MEDS: carvediloL 25 MG TABLET PO (21:23)
[2021-05-22] VITALS (8 sets, daily range): BP systolic 90–108; BP diastolic 49–62; PULSE 62–72; RESP 17–18; TEMP 36.5–37.4; O2SAT 94–96
[2021-05-22] MEDS: Omeprazole 20 MG CAPSULE.DR PO (06:25)
[2021-05-22 06:40] LABS: Anion Gap 15 (12-20); Blood Urea Nitrogen 28 mg/dL (9-16); Calcium 9.3 mg/dL (8.4-10.2); Carbon Dioxide 22 mmol/L (22-29); Chloride 109 mmol/L (96-108); Estimated Glomerular Filt Rate 48; Glucose Random 141 mg/dL (60-115); Potassium 4.7 mmol/L (3.3-5.1); Sodium 141 mmol/L (135-145)
[2021-05-22 06:43] LABS: B Type Natriuretic Peptide 2200 pg/mL (<100)
[2021-05-22] MEDS: Multivitamin TABLET 1 TAB PO (08:45)
[2021-05-22] MEDS: Potassium Chloride ER 20 MEQ TAB.ER.PRT 40 MEQ PO (08:46)
[2021-05-22] MEDS: 0.9 % Sodium Chloride Flush 3 ML SYRINGE IVFLUSH ×3 (08:47→21:21)
--- NOTE | 2021-05-22 09:59 | MHC.CM.PN ---
IMM 05/22/21 MALE 65 DX HF VAXX X 2 MODERNA COMPLICATIONS #3, BOOSTER WILL BE PFIZER SCHEDULED FOR 10/03. HE LIVES WITH HIS /HCP ON FILE. HE IS INDEPENDENT ALL FUNCTIONAL MOBILITY. DP Home with family assist and transport.
[2021-05-22] MEDS: carvediloL 25 MG TABLET PO (10:05)
[2021-05-22] MEDS: lisinopriL 10 MG TABLET PO (10:05)
[2021-05-22] MEDS: Bumetanide 1 MG/4 ML VIAL 2 MG IVPUSH ×2 (12:35→21:21)
--- NOTE | 2021-05-22 13:26 | PM.CNCAR ---
History of Present Illness History of Present Illness Date of Service: 05/22/21 Requesting physician: Imelda Hess Chief complaint: Device shock, CHF Narrative: Very pleasant 65-year-old gentleman with background history of nonischemic cardiomyopathy history of pulmonary embolism, chronic kidney disease, severely reduced ejection fraction of 28%, previous ICD and episodes of ventricular tachycardia for which she received multiple shocks in the past. He has ICD placement as well as ablation performed in [place]. He is presenting with the device shock. He said for 2-3 days preceding the ICD shock he was experiencing shortness of breath, orthopnea and PND. He was drinking a lot of water because he was told that he needs to do this to improve his kidney function. Her presentation he was clinically volume overloaded and was started on Bumex. He is saying his breathing is improving. He continues to be overloaded. Telemetry is showing multiple runs of nonsustained VT. This is quite normal for him. At 1 stage he had hypokalemia and received shocks at this time Echocardiogram she from February 2021 is showing ejection fraction of 28%. Mild aortic valve regurgitation, mild mitral regurgitation and mild tricuspid valve regurgitation were noticed. [facility] Past Medical History Medical History Mayers's esophagus BPH (benign prostatic hyperplasia) Chronic HFrEF (heart failure with reduced ejection fraction) CKD (chronic kidney disease) GERD (gastroesophageal reflux disease) High prostate specific antigen (PSA) History of pulmonary embolism Hypercholesterolemia Hypertension ICD (implantable cardioverter-defibrillator) in place Non-toxic multinodular goiter Nonischemic cardiomyopathy NSVT (nonsustained ventricular tachycardia) Overweight (BMI 25.0-29.9) Pain in left testicle Shoulder fracture, right Sialoadenitis Sustained VT (ventricular tachycardia) Thyroid nodule Tubular adenoma of colon Type 2 diabetes mellitus with hyperglycemia Family History Family History Father CVD (cardiovascular disease) Leukemia Cardiomyopathy HTN (hypertension) Mother HTN (hypertension) Surgical History Surgical History H/O left inguinal hernia repair History of colonoscopy History of loop recorder (~2013) History of prostate surgery History of tonsillectomy and adenoidectomy Hx of cardiac cath (~2013) Social History Social History Household Members: Spouse Housing: Condominium Do you presently have visiting nurse or other home services: No Alcohol intake: never Patient Tobacco Use Status: Never used Tobacco Tobacco use type: Cigarette e-Cigarette/Vaping Use: Never Used Second Hand Smoke Exposure: No Advance Directives Date on File: 05/21/21 service: No Current occupational status: retired Meds Allergies Allergy/AdvReac Type Severity Reaction Status Date / Time epinephrine [EPINEPHRINE] Allergy Severe CANNOT Verified 05/15/21 10:41 TAKE DUE TO VTACH HX AND AICD SETTINGS metoprolol [METOPROLOL] Allergy Intermediate FLU LIKE Verified 05/15/21 10:41 SYMPTOMS ezetimibe [From ZETIA] AdvReac Intermediate HEAD Verified 05/15/21 10:41 FUZZY Ofzlwoa-YZL-YiL Reductase AdvReac Intermediate HEAD Verified 05/15/21 10:41 Inhibitor FUZZY [[id number] REDUCTASE INHIBITOR] naproxen AdvReac Unknown water Verified 05/15/21 10:41 retention Active Medications: Current Medications Acetaminophen (Acetaminophen 325 Mg Tablet) 650 mg PO Q6H PRN PRN Reason: Pain, Mild (Pain Scale 1-3) Amiodarone HCl (Amiodarone Hcl 200 Mg Tablet) 200 mg PO DAILY@1800 [facility] Last Admin: 05/21/21 17:31 Dose: 200 mg Documented by: Atorvastatin Calcium (Atorvastatin Calcium 20 Mg Tablet) 20 mg PO BEDTIME [facility] Last Admin: 05/21/21 21:22 Dose: 20 mg Documented by: Bumetanide (Bumetanide 1 Mg/4 Ml Vial) 2 mg IVPUSH BID [facility]; Protocol Last Admin: 05/22/21 12:35 Dose: 2 mg Documented by: Carvedilol (Carvedilol 25 Mg Tablet) 25 mg PO BID [facility]; Protocol Last Admin: 05/22/21 10:05 Dose: 25 mg Documented by: Lisinopril (Lisinopril 10 Mg Tablet) 10 mg PO DAILY [facility]; Protocol Last Admin: 05/22/21 10:05 Dose: 10 mg Documented by: Multivitamins/Vitamin C (Multivitamin Tablet) 1 tab PO DAILY [facility] Last Admin: 05/22/21 08:45 Dose: 1 tab Documented by: Non-Formulary Medication (Bimatoprost) 1 drop EYE-BOTH BEDTIME [facility] Pt Own Med ( Ivabradine [Corlanor ] 5 Mg Tablet) 2.5 each PO BID [facility] Last Admin: 05/22/21 12:07 Dose: 2.5 each Documented by: Omeprazole (Omeprazole 20 Mg Capsule.Dr) 20 mg PO DAILY@0630 [facility] Last Admin: 05/22/21 06:25 Dose: 20 mg Documented by: Ondansetron HCl (Ondansetron Hcl 4 Mg/2 Ml Vial) 4 mg IVPUSH Q8H PRN PRN Reason: Nausea and Vomiting Pharmacy Consult (Consult Rx Perform Med Rec) 1 each MISCELLANE ONCE PRN PRN Reason: Consult order Potassium Chloride (Potassium Chloride Er 20 Meq Tab.Er.Prt) 40 meq PO DAILY [facility] Last Admin: 05/22/21 08:46 Dose: 40 meq Documented by: Potassium Chloride (Potassium Chloride Er 20 Meq Tab.Er.Prt) 60 meq PO BEDTIME [facility] Last Admin: 05/21/21 21:23 Dose: 60 meq Documented by: Rivaroxaban (Rivaroxaban 20 Mg Tablet) 20 mg PO DAILY@1800 [facility] Last Admin: 05/21/21 17:46 Dose: 20 mg Documented by: Sodium Chloride (0.9 % Sodium Chloride Flush 3 Ml Syringe) [facility] Last Admin: 05/22/21 08:47 Dose: 3 ml Documented by: Tamsulosin HCl (Tamsulosin Hcl 0.4 Mg Capsule) 0.4 mg PO BEDTIME [facility] Last Admin: 05/21/21 21:23 Dose: 0.4 mg Documented by: Home Medications Medication Instructions Recorded Confirmed Last Taken Type bimatoprost 0.01 % eye drops 1 drp OPHTHALMIC (EYE) BEDTIME ml 04/29/20 05/21/21 05/20/21 History acetaminophen 325 mg tablet 650 mg PO Q6H PRN 05/21/21 05/21/21 Unknown History amiodarone 200 mg tablet 200 mg PO DAILY@1800 05/21/21 05/21/21 05/21/21 History bumetanide 2 mg tablet 1 mg PO DAILY 05/21/21 05/21/21 05/21/21 History bumetanide 2 mg tablet 2 mg PO BEDTIME 05/21/21 05/21/21 05/20/21 History zcugoydabacl-uymobbcf-mfptdg tablet 1 tab PO DAILY 05/21/21 05/21/21 05/21/21 History potassium chloride 20 mEq 40 meq PO DAILY 05/21/21 05/21/21 05/21/21 History tablet,extended release(part/cryst) potassium chloride 20 mEq 60 meq PO BEDTIME 05/21/21 05/21/21 05/20/21 History tablet,extended release(part/cryst) rivaroxaban 20 mg tablet (Xarelto) 20 mg PO DAILY@1800 05/21/21 05/21/21 05/20/21 History rosuvastatin 5 mg tablet 5 mg PO BEDTIME 05/21/21 05/21/21 05/20/21 History tamsulosin 0.4 mg capsule 0.4 mg PO BEDTIME 05/21/21 05/21/21 05/20/21 History Physical Exam Vital Signs: Vital Signs: Last Vital Signs Temp 99.1 F 05/22/21 11:55 Pulse 62 05/22/21 11:55 Resp 18 05/22/21 11:55 BP 102/56 L 05/22/21 11:55 Pulse Ox 96 05/22/21 11:55 BMI result Body Mass Index 25.7 GENERAL APPEARANCE: in no acute distress, pleasant. NECK: no carotid bruit, elevated jugular venous distention. SKIN: no suspicious lesions, warm and dry. HEART: no murmurs, regular rate and rhythm. LUNGS: clear to auscultation bilaterally. ABDOMEN: soft, nontender. EXTREMITIES: no edema. PERIPHERAL PULSES: equal. NEUROLOGIC: No gross deficits, AAO X 3 Objective Labs and Meds Result diagrams: 05/21/21 10:14 05/22/21 05:44 Lab results: Laboratory Results - last 24 hr 05/21/21 05/21/21 05/22/21 10:06 13:17 05:44 O2 Saturation 94.0 ABG pH at Pt Temp 7.47 H ABG pH (Temp Correct) 7.47 H ABG pCO2 at Pt Temp 32 ABG pCO2 (Temp Corrct 33 ABG pO2 at Pt Temp 71 L ABG pO2 (Temp Correct 72 L ABG HCO3 24 ABG Base Excess (Actual) 1.3 Sodium 141 Potassium 4.7 Chloride 109 H Carbon Dioxide 22 Anion Gap 15 BUN 28 H Creatinine 1.47 H Estim Creat Clear Calc 54.0 Estimated GFR 48 Random Glucose 141 H Calcium 9.3 Troponin I High Sens 23.0 D B-Natriuretic Peptide 05/22/21 05:44 O2 Saturation ABG pH at Pt Temp ABG pH (Temp Correct) ABG pCO2 at Pt Temp ABG pCO2 (Temp Corrct ABG pO2 at Pt Temp ABG pO2 (Temp Correct ABG HCO3 ABG Base Excess (Actual) Sodium Potassium Chloride Carbon Dioxide Anion Gap BUN Creatinine Estim Creat Clear Calc Estimated GFR Random Glucose Calcium Troponin I High Sens B-Natriuretic Peptide 2200 H Assessment and Plan (1) Acute exacerbation of CHF (congestive heart failure): Status: Acute (2) NSVT (nonsustained ventricular tachycardia): Status: Acute [age] gentleman was background of nonischemic cardiomyopathy with ejection fraction of 28%, previous device shock in the setting of hypokalemia, previous ablation in [place] who is presenting for shortness of breath, orthopnea and device shock. Was clinically volume overloaded for few days. He was drinking a lot of water preceding the shortness of breath. Continues to be volume overloaded. Continue Bumex. He has chronic nonsustained VT. At think device shock happen because of congestive heart failure and resulting arrhythmia. I think we diurese him and reassess him. He may need mexiletine. Monitor electrolytes closely. Will repeat echocardiography. Thank you for allowing me to participate in the care of your patient. Please feel free to contact me if you have any questions. Procedures Date of Service Date of Service: 05/22/21
--- NOTE | 2021-05-22 14:19 | HO.PM.IMPN ---
Subjective Subjective Date of Service: 05/22/21 Interval History: Feels better this morning able to sleep good, denies orthopnea, less shortness of breath at rest no chest pain, no other acute issues, 1 L negative since admission. Review of Systems General no headache, no dizziness, no fever,no chills.? CVS no chest pain, no palpitation.? Respiratory no shortness of breath,no orthopnea Gastrointestinal no nausea, no vomiting, no abdominal pain no urinary frequency or urgency Skin no rash? Yes all other systems are reviewed and are negative Physical Exam Vital Signs: Vital Signs: Last Vital Signs Temp 99.1 F 05/22/21 11:55 Pulse 62 05/22/21 11:55 Resp 18 05/22/21 11:55 BP 102/56 L 05/22/21 11:55 Pulse Ox 96 05/22/21 11:55 BMI result Body Mass Index 25.7 General awake alert x3, no respiratory distress Neck positive JVD. CVS? regular rate rhythm, Respiratory no crackles,no respiratory distress, no wheeze, no rhonchi. Gastrointestinal abdomen soft, mildly distended, nontender, bowel sounds audible, no guarding , no rigidity. Extremities no edema. Neuro nonfocal Skin no rash Psych appropriate affect Objective Data Active Medications Acetaminophen (Acetaminophen 325 Mg Tablet) 650 mg PO Q6H PRN PRN Reason: Pain, Mild (Pain Scale 1-3) Amiodarone HCl (Amiodarone Hcl 200 Mg Tablet) 200 mg PO DAILY@1800 [facility] Last Admin: 05/21/21 17:31 Dose: 200 mg Documented by: KATI Atorvastatin Calcium (Atorvastatin Calcium 20 Mg Tablet) 20 mg PO BEDTIME [facility] Last Admin: 05/21/21 21:22 Dose: 20 mg Documented by: LILI Bumetanide (Bumetanide 1 Mg/4 Ml Vial) 2 mg IVPUSH BID [facility]; Protocol Last Admin: 05/22/21 12:35 Dose: 2 mg Documented by: NASIM Carvedilol (Carvedilol 25 Mg Tablet) 25 mg PO BID [facility]; Protocol Last Admin: 05/22/21 10:05 Dose: 25 mg Documented by: NASIM Lisinopril (Lisinopril 10 Mg Tablet) 10 mg PO DAILY [facility]; Protocol Last Admin: 05/22/21 10:05 Dose: 10 mg Documented by: NASIM Multivitamins/Vitamin C (Multivitamin Tablet) 1 tab PO DAILY [facility] Last Admin: 05/22/21 08:45 Dose: 1 tab Documented by: NASIM Non-Formulary Medication (Bimatoprost) 1 drop EYE-BOTH BEDTIME [facility] Pt Own Med ( Ivabradine [Corlanor ] 5 Mg Tablet) 2.5 each PO BID [facility] Last Admin: 05/22/21 12:07 Dose: 2.5 each Documented by: NASIM Omeprazole (Omeprazole 20 Mg Capsule.Dr) 20 mg PO DAILY@0630 [facility] Last Admin: 05/22/21 06:25 Dose: 20 mg Documented by: LILI Ondansetron HCl (Ondansetron Hcl 4 Mg/2 Ml Vial) 4 mg IVPUSH Q8H PRN PRN Reason: Nausea and Vomiting Pharmacy Consult (Consult Rx Perform Med Rec) 1 each MISCELLANE ONCE PRN PRN Reason: Consult order Potassium Chloride (Potassium Chloride Er 20 Meq Tab.Er.Prt) 40 meq PO DAILY [facility] Last Admin: 05/22/21 08:46 Dose: 40 meq Documented by: NASIM Potassium Chloride (Potassium Chloride Er 20 Meq Tab.Er.Prt) 60 meq PO BEDTIME [facility] Last Admin: 05/21/21 21:23 Dose: 60 meq Documented by: LILI Rivaroxaban (Rivaroxaban 20 Mg Tablet) 20 mg PO DAILY@1800 [facility] Last Admin: 05/21/21 17:46 Dose: 20 mg Documented by: KATI Sodium Chloride (0.9 % Sodium Chloride Flush 3 Ml Syringe) 3 ml IVFLUSH QSHIFT [facility] Last Admin: 05/22/21 08:47 Dose: 3 ml Documented by: NASIM Tamsulosin HCl (Tamsulosin Hcl 0.4 Mg Capsule) 0.4 mg PO BEDTIME [facility] Last Admin: 05/21/21 21:23 Dose: 0.4 mg Documented by: LILI Labs CBC & Chem 7: 05/21/21 10:14 05/22/21 05:44 Labs: Laboratory Results - last 24 hr 05/22/21 05/22/21 05:44 05:44 Anion Gap 15 Estim Creat Clear Calc 54.0 Estimated GFR 48 Random Glucose 141 H Calcium 9.3 B-Natriuretic Peptide 2200 H Microbiology Microbiology Results: Microbiology 05/21/21 10:14 Blood Culture - Preliminary Blood - Venous No growth after 24 hours. 05/21/21 10:14 Blood Culture - Preliminary Blood - Venous No growth after 24 hours. Assessment and Plan (1) Acute exacerbation of CHF (congestive heart failure): Status: Acute Assessment and Plan: ?65-year-old gentleman with past medical history significant for sustained and nonsustained V-tach status post ICD, history of congestive heart failure with reduced EF presented to [facility] with few days history of shortness of breath orthopnea and diagnosed to have acute congestive heart failure this morning his defibrillator went off therefore came to ER . Acute on chronic congestive heart failure with reduced EF Feeling better this morning, denies shortness of breath or orthopnea,still noted to have elevated JVD No chest pain, normal troponin EKG with no acute ischemic change Continue IV Bumex 2 mg b.i.d. Recommend fluid restriction to 1.5 L Slight bump in creatinine 1.47 noted to have elevated creatinine in the past,BNP worsened to 2200 Follow BMP and BNP/follow daily weight I's and O's. Case discussed with Dr. Abdi he recommend to diuresed patient, follow clinical course Await echo report Acute hypoxic respiratory failure due to acute CHF , oxygenation improved to 96% on room air History of nonsustained and sustained V-tach Seems chronic, patient asymptomatic Continue home medication amiodarone, Coreg and Corlanor Runs low blood pressure at baseline, continue to follow Keep magnesium above 2 and potassium above 4 History of pulmonary embolus Continue Xarelto Mayers's esophagus/GERD continue PPI Code status full code DVT prophylaxis on Xarelto Quality Stroke Does the patient have a stroke diagnosis?: No VTE Prior VTE?: No VTE Risk Level:: Medical - moderate - high VTE Device Contraindication: Treatment Not Indicated VTE Drug Contraindication: N/A - Med Ordered
[2021-05-22] MEDS: Amiodarone HCL 200 MG TABLET PO (18:04)
[2021-05-22] MEDS: Rivaroxaban 20 MG TABLET PO (18:04)
[2021-05-22] MEDS: Atorvastatin Calcium 20 MG TABLET PO (21:20)
[2021-05-22] MEDS: Tamsulosin HCL 0.4 MG CAPSULE PO (21:20)
[2021-05-22] MEDS: Potassium Chloride ER 20 MEQ TAB.ER.PRT 60 MEQ PO (21:20)
[2021-05-23] VITALS (10 sets, daily range): BP systolic 96–111; BP diastolic 53–66; PULSE 54–71; RESP 16–18; TEMP 36.6–37.3; O2SAT 94–96
[2021-05-23] MEDS: Omeprazole 20 MG CAPSULE.DR PO (06:35)
[2021-05-23 06:50] LABS: B Type Natriuretic Peptide 776 pg/mL (<100)
[2021-05-23 07:33] LABS: Calcium 9.5 mg/dL (8.4-10.2)
[2021-05-23 07:36] LABS: Anion Gap 14 (12-20); Blood Urea Nitrogen 32 mg/dL (9-16); Carbon Dioxide 25 mmol/L (22-29); Chloride 108 mmol/L (96-108); Creatinine Clr Calc Pharmacy 56.3; Estimated Glomerular Filt Rate 51; Glucose Random 95 mg/dL (60-115); Magnesium 2.2 mg/dL (1.6-2.6); Sodium 143 mmol/L (135-145)
[2021-05-23] MEDS: Multivitamin TABLET 1 TAB PO (08:21)
[2021-05-23] MEDS: lisinopriL 10 MG TABLET PO (08:22)
[2021-05-23] MEDS: Bumetanide 1 MG/4 ML VIAL 2 MG IVPUSH ×2 (08:27→17:35)
[2021-05-23] MEDS: 0.9 % Sodium Chloride Flush 3 ML SYRINGE IVFLUSH ×3 (08:27→20:38)
[2021-05-23] MEDS: Potassium Chloride ER 20 MEQ TAB.ER.PRT 40 MEQ PO (08:27)
--- NOTE | 2021-05-23 11:00 | CA_ITS ---
Transthoracic Echocardiogram Patient (Last, First, Middle): Cesilia Ninfa Ruiz Gender: Male Date of : 1955 Age: 65 Procedure Date: 05/23/2021 Procedure Type: Transthoracic Echocardiogram Location: [facility] [place] Height: 180.34 cm Weight: 83.46 kg BSA: 2.04 m2 Heart Rate: bpm BP: 105 / 56 mmHg Electric Meter Technician: ZAHIDA Referring MD: Imelda Hess MD Symptoms: chf Study Quality: Fair/Contrast Conclusions: - The left ventricular systolic function is severely decreased. The visually estimated ejection fraction is between 20-25%. - Normal right ventricular cavity size and systolic function. There is a pacemaker wire seen in the right ventricle. - There is mild tricuspid valve regurgitation. Significantly elevated right atrial pressure. Severe pulmonary hypertension is present. Findings Procedure Information Contrast agent, definity, is being given per protocol without apparent complications. Left Ventricle Normal left ventricular cavity size. There is normal left ventricular wall thickness. The left ventricular systolic function is severely decreased. The visually estimated ejection fraction is between 20-25%. There is severe global hypokinesis. Diastolic function is indeterminate on the basis of available data. Right Ventricle Normal right ventricular cavity size and systolic function. There is a pacemaker wire seen in the right ventricle. Tricuspid Valve There is mild tricuspid valve regurgitation. Significantly elevated right atrial pressure. Severe pulmonary hypertension is present. Venous The inferior vena cava is dilated and does not collapse with inspiration. Pericardium/Pleural There is no evidence of pericardial effusion. Prior Study Comparison No significant change compared to prior study dated: 02/19/2021. Measurements 2D Linear Measurements IVSd: 0.86 0.6-0.9/0.6-1.0 cm LVIDd: 5.36 3.9-5.3/4.2-5.9 cm LVIDd Index: 2.63 2.4-3.2/2.2-3.1 cm/m2 LVIDs: 4.86 2.0-3.6 cm LVPWd: 0.99 0.7-1.1 cm LV Mass: 229.49 67-162/88-224 g LV Mass Index: 112.49 43-95/49-115 g/m2 2D Systolic Function EF 4C: 30.70 >55% Tricuspid Valve TR Pk Michael: 3.53 TR Pk Grad: 50.00 RA Press: 15.00 RVSP: 65.00 Updated in Other Vendor System with Status of Final Nithin Abdi MD electronically signed on 05/23/2021 9:06:18 PM with status of Final
--- NOTE | 2021-05-23 11:28 | MHC.CM.PN ---
Per ROUNDS discussion, Patient is not yet medically cleared for dc (IV Bumex). Home is the goal for dc and CM will follow for possible need to adjust the dc plan.
[2021-05-23] MEDS: carvediloL 25 MG TABLET PO ×2 (12:38→20:37)
--- NOTE | 2021-05-23 14:35 | HO.PM.IMPN ---
Subjective Subjective Date of Service: 05/23/21 Interval History: Feels tired since did not sleep well due to frequent urination received dose of Bumex late at night, denies chest pain, feels better, no shortness of breath, no orthopnea, no headache or dizziness. Review of Systems General no headache, no dizziness, no fever,no chills.? CVS no chest pain, no palpitation.? Respiratory no shortness of breath,no orthopnea Gastrointestinal no nausea, no vomiting, no abdominal pain no urinary frequency or urgency Skin no rash? Yes all other systems are reviewed and are negative Physical Exam Vital Signs: Vital Signs: Last Vital Signs Temp 99.2 F 05/23/21 11:29 Pulse 71 05/23/21 12:38 Resp 18 05/23/21 11:29 BP 111/66 05/23/21 12:38 Pulse Ox 96 05/23/21 11:29 BMI result Body Mass Index 25.7 General awake alert x3, no respiratory distress Neck positive JVD. CVS? regular rate rhythm, Respiratory no crackles,no respiratory distress, no wheeze, no rhonchi. Gastrointestinal abdomen soft, mildly distended, nontender, bowel sounds audible, no guarding , no rigidity. Extremities no edema. Neuro nonfocal Skin no rash Psych appropriate affect Objective Data Active Medications Acetaminophen (Acetaminophen 325 Mg Tablet) 650 mg PO Q6H PRN PRN Reason: Pain, Mild (Pain Scale 1-3) Amiodarone HCl (Amiodarone Hcl 200 Mg Tablet) 200 mg PO DAILY@1800 [facility] Last Admin: 05/22/21 18:04 Dose: 200 mg Documented by: ARDEN Atorvastatin Calcium (Atorvastatin Calcium 20 Mg Tablet) 20 mg PO BEDTIME [facility] Last Admin: 05/22/21 21:20 Dose: 20 mg Documented by: DANIAL Bumetanide (Bumetanide 1 Mg/4 Ml Vial) 2 mg IVPUSH BID [facility]; Protocol Last Admin: 05/23/21 08:27 Dose: 2 mg Documented by: DOBROB Carvedilol (Carvedilol 25 Mg Tablet) 25 mg PO BID [facility]; Protocol Last Admin: 05/23/21 12:38 Dose: 25 mg Documented by: DOBROB Lisinopril (Lisinopril 10 Mg Tablet) 10 mg PO DAILY [facility]; Protocol Last Admin: 05/23/21 08:22 Dose: 10 mg Documented by: SALAZAR Mexiletine HCl (Mexiletine Hcl 150 Mg Capsule) 150 mg PO Q8H [facility] Last Admin: 05/23/21 12:39 Dose: 150 mg Documented by: SALAZAR Multivitamins/Vitamin C (Multivitamin Tablet) 1 tab PO DAILY [facility] Last Admin: 05/23/21 08:21 Dose: 1 tab Documented by: SALAZAR Pt Own Med ( Ivabradine [Corlanor ] 5 Mg Tablet) 2.5 each PO BID [facility] Last Admin: 05/23/21 08:21 Dose: 2.5 each Documented by: SALAZAR Omeprazole (Omeprazole 20 Mg Capsule.Dr) 20 mg PO DAILY@0630 [facility] Last Admin: 05/23/21 06:35 Dose: 20 mg Documented by: BARI Ondansetron HCl (Ondansetron Hcl 4 Mg/2 Ml Vial) 4 mg IVPUSH Q8H PRN PRN Reason: Nausea and Vomiting Pharmacy Consult (Consult Rx Perform Med Rec) 1 each MISCELLANE ONCE PRN PRN Reason: Consult order Potassium Chloride (Potassium Chloride Er 20 Meq Tab.Er.Prt) 40 meq PO DAILY [facility] Last Admin: 05/23/21 08:27 Dose: 40 meq Documented by: SALAZAR Potassium Chloride (Potassium Chloride Er 20 Meq Tab.Er.Prt) 60 meq PO BEDTIME [facility] Last Admin: 05/22/21 21:20 Dose: 60 meq Documented by: DANIAL Rivaroxaban (Rivaroxaban 20 Mg Tablet) 20 mg PO DAILY@1800 [facility] Last Admin: 05/22/21 18:04 Dose: 20 mg Documented by: ARDEN Sodium Chloride (0.9 % Sodium Chloride Flush 3 Ml Syringe) 3 ml IVFLUSH QSHIFT [facility] Last Admin: 05/23/21 08:27 Dose: 3 ml Documented by: SALAZAR Tamsulosin HCl (Tamsulosin Hcl 0.4 Mg Capsule) 0.4 mg PO BEDTIME [facility] Last Admin: 05/22/21 21:20 Dose: 0.4 mg Documented by: DANIAL Labs CBC & Chem 7: 05/21/21 10:14 05/23/21 05:53 Labs: Laboratory Results - last 24 hr 05/23/21 05/23/21 05:53 05:53 Anion Gap 14 Estim Creat Clear Calc 56.3 Estimated GFR 51 Random Glucose 95 Calcium 9.5 Magnesium 2.2 B-Natriuretic Peptide 776 H Microbiology Microbiology Results: Microbiology 05/21/21 10:14 Blood Culture - Preliminary Blood - Venous No growth after 48 hours. 05/21/21 10:14 Blood Culture - Preliminary Blood - Venous No growth after 48 hours. Assessment and Plan (1) Acute exacerbation of CHF (congestive heart failure): Status: Acute Assessment and Plan: 65-year-old gentleman with past medical history significant for sustained and nonsustained V-tach status post ICD, history of congestive heart failure with reduced EF presented to [facility] with few days history of shortness of breath orthopnea and diagnosed to have acute congestive heart failure this morning his defibrillator went off therefore came to ER Acute on chronic congestive heart failure with reduced EF Feeling better this morning, denies shortness of breath or orthopnea,still noted to have elevated JVD No chest pain, normal troponin EKG with no acute ischemic change Continue IV Bumex 2 mg b.i.d. change timing of Bumex. cont. fluid restriction to 1.5 L creatinine 1.41 stable ,BNP improved from 2200 to 776,neg 4.5 L , potassium 4 and magnesium 2.2 today On 60 mEq of potassium, will give additional 20 mEq Follow BMP and BNP/follow daily weight I's and O's. Follow echo report Being followed by parts sales manager Dr. Abdi with started on mexiletine continue tele monitor Acute hypoxic respiratory failure due to acute CHF , oxygenation improved to 96% on room air? History of nonsustained and sustained V-tach Seems chronic, patient asymptomatic Continue home medication amiodarone, Coreg and Corlanor Runs low blood pressure at baseline, continue all home medication Keep magnesium above 2 and potassium above 4 History of pulmonary embolus Continue Xarelto Mayers's esophagus/GERD continue PPI Code status full code DVT prophylaxis on Xarelto Quality Stroke Does the patient have a stroke diagnosis?: No VTE Prior VTE?: No VTE Risk Level:: Medical - moderate - high VTE Device Contraindication: Treatment Not Indicated VTE Drug Contraindication: N/A - Med Ordered
[2021-05-23] MEDS: Potassium Chloride ER 20 MEQ TAB.ER.PRT PO (15:20)
[2021-05-23] MEDS: Magnesium Oxide 400 MG TABLET PO (15:20)
--- NOTE | 2021-05-23 16:10 | P.PNCA_ITS ---
Subjective Subjective Date of Service: 05/23/21 Interval history: Feeling better. Still has mild dyspnea. Continues to be volume overloaded. Diuresing well with Bumex. Telemetry reviewed which is showing multiple runs of nonsustained VT, longest was 9 beats. Physical Exam Vital Signs: Last Vital Signs Temp 98 F 05/23/21 15:21 Pulse 58 05/23/21 15:21 Resp 16 05/23/21 15:21 BP 96/54 L 05/23/21 15:21 Pulse Ox 95 05/23/21 15:21 BMI result Body Mass Index 25.7 GENERAL APPEARANCE: in no acute distress, pleasant. NECK: no carotid bruit, elevated jugular venous distention. SKIN: no suspicious lesions, warm and dry. HEART: no murmurs, regular rate and rhythm. LUNGS: clear to auscultation bilaterally. ABDOMEN: soft, nontender. EXTREMITIES: no edema. PERIPHERAL PULSES: equal. NEUROLOGIC: No gross deficits, AAO X 3 Objective Labs and Meds Result diagrams: 05/21/21 10:14 05/23/21 05:53 Lab results: Laboratory Results - last 24 hr 05/23/21 05/23/21 05:53 05:53 Sodium 143 Potassium 4.0 Chloride 108 Carbon Dioxide 25 Anion Gap 14 BUN 32 H Creatinine 1.41 H Estim Creat Clear Calc 56.3 Estimated GFR 51 Random Glucose 95 Calcium 9.5 Magnesium 2.2 B-Natriuretic Peptide 776 H Progress Note: A&P Assessment and plan (1) Acute exacerbation of CHF (congestive heart failure): Status: Acute (2) CKD (chronic kidney disease): Status: Acute (3) NSVT (nonsustained ventricular tachycardia): Status: Acute Assessment and Plan: Pleasant 65 gentleman with known nonischemic cardiomyopathy with previous intra- ocular tachycardia for which he had ablation done in [place]. He has been on chronic amiodarone. He recently had device shock and was admitted. Clinically was in heart failure with volume overload. He has been IV Bumex since then being diuresed with close monitoring of his electrolytes because he is quite sensitive to hypokalemia. Overall still volume overloaded. He has multiple runs of nonsustained VT on telemetry. With his recent shock I feel we need to add a 2nd agent and will at mexiletine 150 mg q.8 hours to the regimen. My hope is that that will suppress the nonsustained VT and hopefully would prevent future shocks from VT/VFib. Thank you for allowing me to participate in the care of your patient. Please feel free to contact me if you have any questions. Fall Risk Details Current Medications: Current Medications Acetaminophen (Acetaminophen 325 Mg Tablet) 650 mg PO Q6H PRN PRN Reason: Pain, Mild (Pain Scale 1-3) Amiodarone HCl (Amiodarone Hcl 200 Mg Tablet) 200 mg PO DAILY@1800 [facility] Last Admin: 05/22/21 18:04 Dose: 200 mg Documented by: Atorvastatin Calcium (Atorvastatin Calcium 20 Mg Tablet) 20 mg PO BEDTIME [facility] Last Admin: 05/22/21 21:20 Dose: 20 mg Documented by: Bumetanide (Bumetanide 1 Mg/4 Ml Vial) 2 mg IVPUSH BID [facility]; Protocol Last Admin: 05/23/21 08:27 Dose: 2 mg Documented by: Carvedilol (Carvedilol 25 Mg Tablet) 25 mg PO BID [facility]; Protocol Last Admin: 05/23/21 12:38 Dose: 25 mg Documented by: Lisinopril (Lisinopril 10 Mg Tablet) 10 mg PO DAILY [facility]; Protocol Last Admin: 05/23/21 08:22 Dose: 10 mg Documented by: Magnesium Oxide (Magnesium Oxide 400 Mg Tablet) 400 mg PO DAILY [facility] Last Admin: 05/23/21 15:20 Dose: 400 mg Documented by: Mexiletine HCl (Mexiletine Hcl 150 Mg Capsule) 150 mg PO Q8H [facility] Last Admin: 05/23/21 12:39 Dose: 150 mg Documented by: Multivitamins/Vitamin C (Multivitamin Tablet) 1 tab PO DAILY [facility] Last Admin: 05/23/21 08:21 Dose: 1 tab Documented by: Pt Own Med ( Ivabradine [Corlanor ] 5 Mg Tablet) 2.5 each PO BID [facility] Last Admin: 05/23/21 08:21 Dose: 2.5 each Documented by: Omeprazole (Omeprazole 20 Mg Capsule.Dr) 20 mg PO DAILY@0630 [facility] Last Admin: 05/23/21 06:35 Dose: 20 mg Documented by: Ondansetron HCl (Ondansetron Hcl 4 Mg/2 Ml Vial) 4 mg IVPUSH Q8H PRN PRN Reason: Nausea and Vomiting Pharmacy Consult (Consult Rx Perform Med Rec) 1 each MISCELLANE ONCE PRN PRN Reason: Consult order Potassium Chloride (Potassium Chloride Er 20 Meq Tab.Er.Prt) 40 meq PO DAILY [facility] Last Admin: 05/23/21 08:27 Dose: 40 meq Documented by: Potassium Chloride (Potassium Chloride Er 20 Meq Tab.Er.Prt) 60 meq PO BEDTIME [facility] Last Admin: 05/22/21 21:20 Dose: 60 meq Documented by: Rivaroxaban (Rivaroxaban 20 Mg Tablet) 20 mg PO DAILY@1800 [facility] Last Admin: 05/22/21 18:04 Dose: 20 mg Documented by: Sodium Chloride (0.9 % Sodium Chloride Flush 3 Ml Syringe) 3 ml IVFLUSH QSHIFT [facility] Last Admin: 05/23/21 15:20 Dose: 3 ml Documented by: Tamsulosin HCl (Tamsulosin Hcl 0.4 Mg Capsule) 0.4 mg PO BEDTIME [facility] Last Admin: 05/22/21 21:20 Dose: 0.4 mg Documented by: Time Spent With Patient Time: Total time spent is greater than 50% in coordination of care (as documented) at patient's floor/unit and/or counseling patient: Time with patient: 25 - 35 minutes Progress Note: Quality Stroke Does the patient have a stroke diagnosis?: No Procedures Date of Service Date of Service: 05/23/21
[2021-05-23] MEDS: Rivaroxaban 20 MG TABLET PO (17:36)
[2021-05-23] MEDS: Amiodarone HCL 200 MG TABLET PO (17:36)
[2021-05-23] MEDS: Tamsulosin HCL 0.4 MG CAPSULE PO (20:37)
[2021-05-23] MEDS: Atorvastatin Calcium 20 MG TABLET PO (20:37)
[2021-05-23] MEDS: Potassium Chloride ER 20 MEQ TAB.ER.PRT 60 MEQ PO (20:37)
[2021-05-24] VITALS (10 sets, daily range): BP systolic 90–156; BP diastolic 56–69; PULSE 58–70; RESP 18; TEMP 36.8–37.6; O2SAT 92–98; BMI 25.9
[2021-05-24] MEDS: Omeprazole 20 MG CAPSULE.DR PO (06:13)
[2021-05-24 07:09] LABS: B Type Natriuretic Peptide 872 pg/mL (<100)
[2021-05-24 07:15] LABS: Anion Gap 12 (12-20); Blood Urea Nitrogen 28 mg/dL (9-16); Calcium 8.6 mg/dL (8.4-10.2); Carbon Dioxide 24 mmol/L (22-29); Chloride 111 mmol/L (96-108); Creatinine Clr Calc Pharmacy 67.3; Estimated Glomerular Filt Rate > 60; Glucose Random 112 mg/dL (60-115); Sodium 143 mmol/L (135-145)
[2021-05-24] MEDS: 0.9 % Sodium Chloride Flush 3 ML SYRINGE IVFLUSH ×3 (07:47→21:36)
[2021-05-24] MEDS: Potassium Chloride ER 20 MEQ TAB.ER.PRT 40 MEQ PO (07:48)
[2021-05-24] MEDS: Bumetanide 1 MG/4 ML VIAL 2 MG IVPUSH ×2 (07:48→14:50)
[2021-05-24] MEDS: carvediloL 25 MG TABLET PO ×2 (07:48→21:31)
[2021-05-24] MEDS: Magnesium Oxide 400 MG TABLET PO (07:49)
[2021-05-24] MEDS: Multivitamin TABLET 1 TAB PO (07:49)
[2021-05-24] MEDS: lisinopriL 10 MG TABLET PO (07:49)
--- NOTE | 2021-05-24 09:10 | P.PNCA_ITS ---
Subjective Subjective Date of Service: 05/24/21 Interval history: Feeling better. Still volume overloaded. Physical Exam Vital Signs: Last Vital Signs Temp 98.9 F 05/24/21 07:36 Pulse 62 05/24/21 07:49 Resp 18 05/24/21 07:36 BP 103/66 05/24/21 07:49 Pulse Ox 94 05/24/21 07:36 BMI result Body Mass Index 25.9 GENERAL APPEARANCE: in no acute distress, pleasant. NECK: no carotid bruit, elevated jugular venous distention. SKIN: no suspicious lesions, warm and dry. HEART: no murmurs, regular rate and rhythm. LUNGS: clear to auscultation bilaterally. ABDOMEN: soft, nontender. EXTREMITIES: no edema. PERIPHERAL PULSES: equal. NEUROLOGIC: No gross deficits, AAO X 3 Objective Labs and Meds Result diagrams: 05/21/21 10:14 05/24/21 05:58 Lab results: Laboratory Results - last 24 hr 05/24/21 05/24/21 05:58 05:58 Sodium 143 Potassium 4.0 Chloride 111 H Carbon Dioxide 24 Anion Gap 12 BUN 28 H Creatinine 1.18 Estim Creat Clear Calc 67.3 Estimated GFR > 60 Random Glucose 112 Calcium 8.6 D B-Natriuretic Peptide 872 H Progress Note: A&P Assessment and plan (1) Ventricular tachycardia: Status: Acute (2) Acute exacerbation of CHF (congestive heart failure): Status: Acute Assessment and Plan: Pleasant 65 gentleman with known nonischemic cardiomyopathy with previous ventricular tachycardia for which he had ablation done in [place].? He has been on chronic amiodarone.? He recently had device shock and was admitted.? Clinically was in heart failure with volume overload.? He has been IV Bumex since then being diuresed with close monitoring of his electrolytes because he is quite sensitive to hypokalemia.? Overall still volume overloaded.? He has been started on mexiletine and since then he has been electrically stable. Continue amiodarone exerting. Potentially can be changed to oral diuretics tomorrow. Thank you for allowing me to participate in the care of your patient. Please feel free to contact me if you have any questions. Fall Risk Details Current Medications: Current Medications Acetaminophen (Acetaminophen 325 Mg Tablet) 650 mg PO Q6H PRN PRN Reason: Pain, Mild (Pain Scale 1-3) Amiodarone HCl (Amiodarone Hcl 200 Mg Tablet) 200 mg PO DAILY@1800 [facility] Last Admin: 05/23/21 17:36 Dose: 200 mg Documented by: Atorvastatin Calcium (Atorvastatin Calcium 20 Mg Tablet) 20 mg PO BEDTIME [facility] Last Admin: 05/23/21 20:37 Dose: 20 mg Documented by: Bumetanide (Bumetanide 1 Mg/4 Ml Vial) 2 mg IVPUSH BID@0800,1400 [facility]; Protocol Last Admin: 05/24/21 07:48 Dose: 2 mg Documented by: Carvedilol (Carvedilol 25 Mg Tablet) 25 mg PO BID [facility]; Protocol Last Admin: 05/24/21 07:48 Dose: 25 mg Documented by: Lisinopril (Lisinopril 10 Mg Tablet) 10 mg PO DAILY [facility]; Protocol Last Admin: 05/24/21 07:49 Dose: 10 mg Documented by: Magnesium Oxide (Magnesium Oxide 400 Mg Tablet) 400 mg PO DAILY [facility] Last Admin: 05/24/21 07:49 Dose: 400 mg Documented by: Mexiletine HCl (Mexiletine Hcl 150 Mg Capsule) 150 mg PO Q8H [facility] Last Admin: 05/24/21 04:11 Dose: 150 mg Documented by: Multivitamins/Vitamin C (Multivitamin Tablet) 1 tab PO DAILY [facility] Last Admin: 05/24/21 07:49 Dose: 1 tab Documented by: Pt Own Med ( Ivabradine [Corlanor ] 5 Mg Tablet) 2.5 each PO BID [facility] Last Admin: 05/24/21 07:49 Dose: 2.5 each Documented by: Omeprazole (Omeprazole 20 Mg Capsule.Dr) 20 mg PO DAILY@0630 [facility] Last Admin: 05/24/21 06:13 Dose: 20 mg Documented by: Ondansetron HCl (Ondansetron Hcl 4 Mg/2 Ml Vial) 4 mg IVPUSH Q8H PRN PRN Reason: Nausea and Vomiting Pharmacy Consult (Consult Rx Perform Med Rec) 1 each MISCELLANE ONCE PRN PRN Reason: Consult order Potassium Chloride (Potassium Chloride Er 20 Meq Tab.Er.Prt) 40 meq PO DAILY [facility] Last Admin: 05/24/21 07:48 Dose: 40 meq Documented by: Potassium Chloride (Potassium Chloride Er 20 Meq Tab.Er.Prt) 60 meq PO BEDTIME [facility] Last Admin: 05/23/21 20:37 Dose: 60 meq Documented by: Rivaroxaban (Rivaroxaban 20 Mg Tablet) 20 mg PO DAILY@1800 [facility] Last Admin: 05/23/21 17:36 Dose: 20 mg Documented by: Sodium Chloride (0.9 % Sodium Chloride Flush 3 Ml Syringe) 3 ml IVFLUSH QSHIFT [facility] Last Admin: 05/24/21 07:47 Dose: 3 ml Documented by: Tamsulosin HCl (Tamsulosin Hcl 0.4 Mg Capsule) 0.4 mg PO BEDTIME [facility] Last Admin: 05/23/21 20:37 Dose: 0.4 mg Documented by: Time Spent With Patient Time: Total time spent is greater than 50% in coordination of care (as documented) at patient's floor/unit and/or counseling patient: Time with patient: 15 - 24 minutes Progress Note: Quality Stroke Does the patient have a stroke diagnosis?: No Procedures Date of Service Date of Service: 05/24/21
--- NOTE | 2021-05-24 13:12 | HO.PM.IMPN ---
Subjective Subjective Date of Service: 05/24/21 Interval History: Being followed for acute congestive heart failure, feeling significantly better this morning denies shortness of breath no orthopnea slept well, tele monitor showed no runs of V-tach. Review of Systems General no headache, no dizziness, no fever,no chills.? CVS no chest pain, no palpitation.? Respiratory no shortness of breath,no orthopnea Gastrointestinal no nausea, no vomiting, no abdominal pain no urinary frequency or urgency Skin no rash? Yes all other systems are reviewed and are negative Physical Exam Vital Signs: Vital Signs: Last Vital Signs Temp 99.6 F 05/24/21 12:00 Pulse 62 05/24/21 12:00 Resp 18 05/24/21 12:00 BP 116/69 05/24/21 12:00 Pulse Ox 92 05/24/21 12:00 BMI result Body Mass Index 25.9 General awake jamee rt x3, no respirat ory distress Neck positive JVD. CVS? regular rate rhyt hm, Respiratory no crackles,no respi ratory distress, n o wheeze, no rhonc hi. Gastrointestin al abdomen soft, m ildly distended, n ontender, bowel so unds audible, no g uarding , no rigid ity. Extremities n o edema. Neuro non focal Skin no rash Psych appropriate affect Objective Data Active Medications Acetaminophen (Acetaminophen 325 Mg Tablet) 650 mg PO Q6H PRN PRN Reason: Pain, Mild (Pain Scale 1-3) Amiodarone HCl (Amiodarone Hcl 200 Mg Tablet) 200 mg PO DAILY@1800 [facility] Last Admin: 05/23/21 17:36 Dose: 200 mg Documented by: SALAZAR Atorvastatin Calcium (Atorvastatin Calcium 20 Mg Tablet) 20 mg PO BEDTIME [facility] Last Admin: 05/23/21 20:37 Dose: 20 mg Documented by: KOKO Bumetanide (Bumetanide 1 Mg/4 Ml Vial) 2 mg IVPUSH BID@0800,1400 [facility]; Protocol Last Admin: 05/24/21 07:48 Dose: 2 mg Documented by: KATLIN Carvedilol (Carvedilol 25 Mg Tablet) 25 mg PO BID [facility]; Protocol Last Admin: 05/24/21 07:48 Dose: 25 mg Documented by: KATLIN Lisinopril (Lisinopril 10 Mg Tablet) 10 mg PO DAILY [facility]; Protocol Last Admin: 05/24/21 07:49 Dose: 10 mg Documented by: KATLIN Magnesium Oxide (Magnesium Oxide 400 Mg Tablet) 400 mg PO DAILY [facility] Last Admin: 05/24/21 07:49 Dose: 400 mg Documented by: KATLIN Mexiletine HCl (Mexiletine Hcl 150 Mg Capsule) 150 mg PO Q8H [facility] Last Admin: 05/24/21 12:12 Dose: 150 mg Documented by: KATLIN Multivitamins/Vitamin C (Multivitamin Tablet) 1 tab PO DAILY [facility] Last Admin: 05/24/21 07:49 Dose: 1 tab Documented by: KATLIN Pt Own Med ( Ivabradine [Corlanor ] 5 Mg Tablet) 2.5 each PO BID [facility] Last Admin: 05/24/21 07:49 Dose: 2.5 each Documented by: KATLIN Omeprazole (Omeprazole 20 Mg Capsule.Dr) 20 mg PO DAILY@0630 [facility] Last Admin: 05/24/21 06:13 Dose: 20 mg Documented by: SOLA Ondansetron HCl (Ondansetron Hcl 4 Mg/2 Ml Vial) 4 mg IVPUSH Q8H PRN PRN Reason: Nausea and Vomiting Pharmacy Consult (Consult Rx Perform Med Rec) 1 each MISCELLANE ONCE PRN PRN Reason: Consult order Potassium Chloride (Potassium Chloride Er 20 Meq Tab.Er.Prt) 40 meq PO DAILY [facility] Last Admin: 05/24/21 07:48 Dose: 40 meq Documented by: KATLIN Potassium Chloride (Potassium Chloride Er 20 Meq Tab.Er.Prt) 60 meq PO BEDTIME [facility] Last Admin: 05/23/21 20:37 Dose: 60 meq Documented by: KOKO Rivaroxaban (Rivaroxaban 20 Mg Tablet) 20 mg PO DAILY@1800 [facility] Last Admin: 05/23/21 17:36 Dose: 20 mg Documented by: SALAZAR Sodium Chloride (0.9 % Sodium Chloride Flush 3 Ml Syringe) 3 ml IVFLUSH QSHIFT [facility] Last Admin: 05/24/21 07:47 Dose: 3 ml Documented by: KATLIN Tamsulosin HCl (Tamsulosin Hcl 0.4 Mg Capsule) 0.4 mg PO BEDTIME [facility] Last Admin: 05/23/21 20:37 Dose: 0.4 mg Documented by: KOKO Labs CBC & Chem 7: 05/21/21 10:14 05/24/21 05:58 Labs: Laboratory Results - last 24 hr 05/24/21 05/24/21 05:58 05:58 Anion Gap 12 Estim Creat Clear Calc 67.3 Estimated GFR > 60 Random Glucose 112 Calcium 8.6 D B-Natriuretic Peptide 872 H Microbiology Microbiology Results: Microbiology 05/21/21 10:14 Blood Culture - Preliminary Blood - Venous No growth after 48 hours. 05/21/21 10:14 Blood Culture - Preliminary Blood - Venous No growth after 48 hours. Assessment and Plan (1) Ventricular tachycardia: Status: Acute (2) Acute exacerbation of CHF (congestive heart failure): Status: Acute Assessment and Plan: 65-year-old gentleman with past medical history significant for sustained and nonsustained V-tach status post ICD, history of congestive heart failure with reduced EF presented to [facility] with few days history of shortness of breath orthopnea and diagnosed to have acute congestive heart failure this morning his defibrillator went off therefore came to ER Acute on chronic congestive heart failure with reduced EF Feeling better this morning, denies shortness of breath or orthopnea,still noted to have elevated JVD No chest pain, normal troponin EKG with no acute ischemic change Continue IV Bumex 2 mg b.i.d. x 24h and reasses cont. fluid restriction to 1.5 L creatinine normalized to 1.1,BNP improved from 2200 to 872,neg > 6L , potassium 4 and magnesium 2.2 On 60 mEq of potassium at home, will give additional 20 mEq Follow BMP and BNP/follow daily weight I's and O's. Echo showed EF 20-25% normal right ventricular cavity size and systolic function, severe pulmonary hypertension and elevated right atrial pressures, indeterminate diastolic function. 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 Abdi with started on mexiletine tolerating it well,exceot mild nausea,continue tele monitor Acute hypoxic respiratory failure due to acute CHF , oxygenation improved to 96% on room air? History of nonsustained and sustained V-tach Seems chronic, patient asymptomatic Continue home medication amiodarone, Coreg and Corlanor Runs low blood pressure at baseline, continue all home medication Keep magnesium above 2 and potassium above 4 History of pulmonary embolus Continue Xarelto Mayers's esophagus/GERD continue PPI Code status full code DVT prophylaxis on Xarelto Quality Stroke Does the patient have a stroke diagnosis?: No VTE Prior VTE?: No VTE Risk Level:: Medical - moderate - high VTE Device Contraindication: Treatment Not Indicated VTE Drug Contraindication: N/A - Med Ordered
[2021-05-24] MEDS: Potassium Chloride ER 20 MEQ TAB.ER.PRT PO (14:50)
[2021-05-24] MEDS: Amiodarone HCL 200 MG TABLET PO (17:49)
[2021-05-24] MEDS: Rivaroxaban 20 MG TABLET PO (17:51)
[2021-05-24] MEDS: Potassium Chloride ER 20 MEQ TAB.ER.PRT 60 MEQ PO (21:31)
[2021-05-24] MEDS: Tamsulosin HCL 0.4 MG CAPSULE PO (21:32)
[2021-05-24] MEDS: Atorvastatin Calcium 20 MG TABLET PO (21:32)
[2021-05-25] VITALS (7 sets, daily range): BP systolic 90–125; BP diastolic 51–67; PULSE 55–68; RESP 16–18; TEMP 36.1–37.2; O2SAT 94–97; BMI 26.1
[2021-05-25] MEDS: Omeprazole 20 MG CAPSULE.DR PO (06:01)
[2021-05-25 06:15] LABS: Anion Gap 12 (12-20); Blood Urea Nitrogen 26 mg/dL (9-16); Calcium 8.3 mg/dL (8.4-10.2); Carbon Dioxide 22 mmol/L (22-29); Chloride 111 mmol/L (96-108); Creatinine Clr Calc Pharmacy 69.7; Estimated Glomerular Filt Rate > 60; Glucose Random 121 mg/dL (60-115); Magnesium 2.2 mg/dL (1.6-2.6); Potassium 4.3 mmol/L (3.3-5.1); Sodium 141 mmol/L (135-145)
[2021-05-25] MEDS: guaiFENesin DM 200/20/10 ML 10 ML SYRUP PO (09:51)
[2021-05-25] MEDS: 0.9 % Sodium Chloride Flush 3 ML SYRINGE IVFLUSH ×3 (09:51→21:01)
[2021-05-25] MEDS: Bumetanide 1 MG/4 ML VIAL 2 MG IVPUSH ×2 (09:51→13:49)
[2021-05-25] MEDS: carvediloL 25 MG TABLET PO ×2 (09:53→21:01)
[2021-05-25] MEDS: Multivitamin TABLET 1 TAB PO (09:53)
[2021-05-25] MEDS: lisinopriL 10 MG TABLET PO (09:53)
[2021-05-25] MEDS: Magnesium Oxide 400 MG TABLET PO (09:53)
[2021-05-25] MEDS: Potassium Chloride ER 20 MEQ TAB.ER.PRT 60 MEQ PO ×2 (09:55→21:01)
--- NOTE | 2021-05-25 10:20 | PM.PNCARD ---
Subjective Subjective Date of Service: 05/25/21 Interval history: Still short of breath clear mild wheezing today. Also having some GI upset with somewhat loose stools. Telemetry has been stable. Physical Exam Vital Signs: Last Vital Signs Temp 98.7 F 05/25/21 08:00 Pulse 68 05/25/21 09:53 Resp 18 05/25/21 08:00 BP 125/67 05/25/21 09:53 Pulse Ox 97 05/25/21 08:00 BMI result Body Mass Index 26.1 GENERAL APPEARANCE: in no acute distress, pleasant. NECK: no carotid bruit, elevated jugular venous distention. SKIN: no suspicious lesions, warm and dry. HEART: no murmurs, regular rate and rhythm. LUNGS: Mild and expiratory wheezes. ABDOMEN: soft, nontender. EXTREMITIES: no edema. PERIPHERAL PULSES: equal. NEUROLOGIC: No gross deficits, AAO X 3 Objective Labs and Meds Result diagrams: 05/21/21 10:14 05/25/21 05:20 Lab results: Laboratory Results - last 24 hr 05/25/21 05:20 Sodium 141 Potassium 4.3 Chloride 111 H Carbon Dioxide 22 Anion Gap 12 BUN 26 H Creatinine 1.14 Estim Creat Clear Calc 69.7 Estimated GFR > 60 Random Glucose 121 H Calcium 8.3 L Magnesium 2.2 Progress Note: A&P Assessment and plan (1) Ventricular tachycardia: Status: Acute (2) Acute exacerbation of CHF (congestive heart failure): Status: Acute Assessment and Plan: Pleasant 65 gentleman with known nonischemic cardiomyopathy with previous ventricular tachycardia for which he had ablation done in [place].? He has been on chronic amiodarone.? He recently had device shock and was admitted.? Clinically was in heart failure with volume overload.? He has been IV Bumex since then being diuresed with close monitoring of his electrolytes because he is quite sensitive to hypokalemia.? Overall still volume overloaded.? Continue amiodarone. Since started on mexiletine he had GI issues including nausea and GI upset. Also today he is complaining that he is little more short of breath and has mild wheezing. Mexiletine has negative ionotropic effect and with cardiomyopathy this can potential reason for him feeling like this. I am decreasing the dose to 150 mg Q 12. Continue diurese as before. Monitor electrolytes closely. Thank you for allowing me to participate in the care of your patient. Please feel free to contact me if you have any questions. Fall Risk Details Current Medications: Current Medications Acetaminophen (Acetaminophen 325 Mg Tablet) 650 mg PO Q6H PRN PRN Reason: Pain, Mild (Pain Scale 1-3) Amiodarone HCl (Amiodarone Hcl 200 Mg Tablet) 200 mg PO DAILY@1800 [facility] Last Admin: 05/24/21 17:49 Dose: 200 mg Documented by: Atorvastatin Calcium (Atorvastatin Calcium 20 Mg Tablet) 20 mg PO BEDTIME [facility] Last Admin: 05/24/21 21:32 Dose: 20 mg Documented by: Bumetanide (Bumetanide 1 Mg/4 Ml Vial) 2 mg IVPUSH BID@0800,1400 [facility]; Protocol Last Admin: 05/25/21 09:51 Dose: 2 mg Documented by: Carvedilol (Carvedilol 25 Mg Tablet) 25 mg PO BID [facility]; Protocol Last Admin: 05/25/21 09:53 Dose: 25 mg Documented by: Lisinopril (Lisinopril 10 Mg Tablet) 10 mg PO DAILY [facility]; Protocol Last Admin: 05/25/21 09:53 Dose: 10 mg Documented by: Magnesium Oxide (Magnesium Oxide 400 Mg Tablet) 400 mg PO DAILY [facility] Last Admin: 05/25/21 09:53 Dose: 400 mg Documented by: Mexiletine HCl (Mexiletine Hcl 150 Mg Capsule) 150 mg PO Q8H [facility] Last Admin: 05/25/21 04:05 Dose: 150 mg Documented by: Multivitamins/Vitamin C (Multivitamin Tablet) 1 tab PO DAILY [facility] Last Admin: 05/25/21 09:53 Dose: 1 tab Documented by: Pt Own Med ( Ivabradine [Corlanor ] 5 Mg Tablet) 2.5 each PO BID [facility] Last Admin: 05/25/21 09:54 Dose: 2.5 each Documented by: Omeprazole (Omeprazole 20 Mg Capsule.) 20 mg PO DAILY@0630 [facility] Last Admin: 05/25/21 06:01 Dose: 20 mg Documented by: Ondansetron HCl (Ondansetron Hcl 4 Mg/2 Ml Vial) 4 mg IVPUSH Q8H PRN PRN Reason: Nausea and Vomiting Pharmacy Consult (Consult Rx Perform Med Rec) 1 each MISCELLANE ONCE PRN PRN Reason: Consult order Potassium Chloride (Potassium Chloride Er 20 Meq Tab.Er.Prt) 60 meq PO BEDTIME [facility] Last Admin: 05/24/21 21:31 Dose: 60 meq Documented by: Potassium Chloride (Potassium Chloride Er 20 Meq Tab.Er.Prt) 60 meq PO DAILY [facility] Last Admin: 05/25/21 09:55 Dose: 60 meq Documented by: Rivaroxaban (Rivaroxaban 20 Mg Tablet) 20 mg PO DAILY@1800 [facility] Last Admin: 05/24/21 17:51 Dose: 20 mg Documented by: Sodium Chloride (0.9 % Sodium Chloride Flush 3 Ml Syringe) 3 ml IVFLUSH QSHIFT [facility] Last Admin: 05/25/21 09:51 Dose: 3 ml Documented by: Tamsulosin HCl (Tamsulosin Hcl 0.4 Mg Capsule) 0.4 mg PO BEDTIME [facility] Last Admin: 05/24/21 21:32 Dose: 0.4 mg Documented by: Time Spent With Patient Time: Total time spent is greater than 50% in coordination of care (as documented) at patient's floor/unit and/or counseling patient: Time with patient: 25 - 35 minutes Progress Note: Quality Stroke Does the patient have a stroke diagnosis?: No Procedures Date of Service Date of Service: 05/25/21
--- NOTE | 2021-05-25 13:33 | HO.PM.IMPN ---
Subjective Subjective Date of Service: 05/25/21 Interval History: Feels not doing good this morning complaining of shortness of breath, cough, denies fever chills, no chest palpitations. Review of Systems General no headache, no dizziness, no fever,no chills.? CVS no chest pain, no palpitation.? Respiratory shortness of breath, cough Gastrointestinal no nausea, no vomiting, no abdominal pain no urinary frequency or urgency Skin no rash? Yes all other systems are reviewed and are negative Physical Exam Vital Signs: Vital Signs: Last Vital Signs Temp 97.8 F 05/25/21 11:36 Pulse 61 05/25/21 11:36 Resp 18 05/25/21 11:36 BP 104/64 05/25/21 11:36 Pulse Ox 94 05/25/21 11:36 BMI result Body Mass Index 26.1 General awake alert x3, no respiratory distress Neck + JVD. CVS??regular rate rhythm, Respiratory no?crackles,no respiratory distress, no wheeze, no rhonchi. Gastrointestinal abdomen soft, mildly distended, nontender, bowel sounds audible, no guarding , no rigidity. Extremities no edema. Neuro non focal Skin no rash Psych appropriate?affect Objective Data Active Medications Acetaminophen (Acetaminophen 325 Mg Tablet) 650 mg PO Q6H PRN PRN Reason: Pain, Mild (Pain Scale 1-3) Amiodarone HCl (Amiodarone Hcl 200 Mg Tablet) 200 mg PO DAILY@1800 [facility] Last Admin: 05/24/21 17:49 Dose: 200 mg Documented by: KATLIN Atorvastatin Calcium (Atorvastatin Calcium 20 Mg Tablet) 20 mg PO BEDTIME [facility] Last Admin: 05/24/21 21:32 Dose: 20 mg Documented by: YOLANDA Bumetanide (Bumetanide 1 Mg/4 Ml Vial) 2 mg IVPUSH BID@0800,1400 [facility]; Protocol Last Admin: 05/25/21 09:51 Dose: 2 mg Documented by: KATLIN Carvedilol (Carvedilol 25 Mg Tablet) 25 mg PO BID [facility]; Protocol Last Admin: 05/25/21 09:53 Dose: 25 mg Documented by: KATLIN Lisinopril (Lisinopril 10 Mg Tablet) 10 mg PO DAILY [facility]; Protocol Last Admin: 05/25/21 09:53 Dose: 10 mg Documented by: KATLIN Magnesium Oxide (Magnesium Oxide 400 Mg Tablet) 400 mg PO DAILY [facility] Last Admin: 05/25/21 09:53 Dose: 400 mg Documented by: KATLIN Mexiletine HCl (Mexiletine Hcl 150 Mg Capsule) 150 mg PO BID [facility] Multivitamins/Vitamin C (Multivitamin Tablet) 1 tab PO DAILY [facility] Last Admin: 05/25/21 09:53 Dose: 1 tab Documented by: KATLIN Pt Own Med ( Ivabradine [Corlanor ] 5 Mg Tablet) 2.5 each PO BID [facility] Last Admin: 05/25/21 09:54 Dose: 2.5 each Documented by: KATLIN Omeprazole (Omeprazole 20 Mg Capsule.Dr) 20 mg PO DAILY@0630 [facility] Last Admin: 05/25/21 06:01 Dose: 20 mg Documented by: YOLANDA Ondansetron HCl (Ondansetron Hcl 4 Mg/2 Ml Vial) 4 mg IVPUSH Q8H PRN PRN Reason: Nausea and Vomiting Pharmacy Consult (Consult Rx Perform Med Rec) 1 each MISCELLANE ONCE PRN PRN Reason: Consult order Potassium Chloride (Potassium Chloride Er 20 Meq Tab.Er.Prt) 60 meq PO BEDTIME [facility] Last Admin: 05/24/21 21:31 Dose: 60 meq Documented by: YOLANDA Potassium Chloride (Potassium Chloride Er 20 Meq Tab.Er.Prt) 60 meq PO DAILY [facility] Last Admin: 05/25/21 09:55 Dose: 60 meq Documented by: KATLIN Rivaroxaban (Rivaroxaban 20 Mg Tablet) 20 mg PO DAILY@1800 [facility] Last Admin: 05/24/21 17:51 Dose: 20 mg Documented by: KATLIN Sodium Chloride (0.9 % Sodium Chloride Flush 3 Ml Syringe) 3 ml IVFLUSH QSHIFT [facility] Last Admin: 05/25/21 09:51 Dose: 3 ml Documented by: KATLIN Tamsulosin HCl (Tamsulosin Hcl 0.4 Mg Capsule) 0.4 mg PO BEDTIME [facility] Last Admin: 05/24/21 21:32 Dose: 0.4 mg Documented by: YOLANDA Labs CBC & Chem 7: 05/21/21 10:14 05/25/21 05:20 Labs: Laboratory Results - last 24 hr 05/25/21 05:20 Anion Gap 12 Estim Creat Clear Calc 69.7 Estimated GFR > 60 Random Glucose 121 H Calcium 8.3 L Magnesium 2.2 Assessment and Plan (1) Ventricular tachycardia: Status: Acute (2) Acute exacerbation of CHF (congestive heart failure): Status: Acute Assessment and Plan: 65-year-old gentleman with past medical history significant for sustained and nonsustained V-tach status post ICD, history of congestive heart failure with reduced EF presented to [facility] with few days history of shortness of breath orthopnea and diagnosed to have acute congestive heart failure this morning his defibrillator went off therefore came to ER Acute on chronic congestive heart failure with reduced EF Was feeling significantly better yesterday but today complaining of shortness of breath and cough, mild nausea, no orthopnea,noted to have elevated JVD less pronounced since yesterday normal troponin EKG with no acute ischemic change Continue IV Bumex 2 mg b.i.d. x 24h and reasses at a.m. cont. fluid restriction to 1.5 L creatinine normalized to 1.1,BNP improved from 2200 to 872,neg > 9L , potassium 4.3 and magnesium 2.2 On 60 mEq of potassium at home, will give additional 20 mEq Follow BMP and BNP/follow daily weight I's and O's. Echo showed EF 20-25% normal right ventricular cavity size and systolic function, severe pulmonary hypertension and elevated right atrial pressures, indeterminate diastolic function. Being followed by tire mold engraver Dr. Abdi he reduce dose of mexiletine to 150 mg b.i.d. due to concern for side effect of shortness of breath and cough this morning and also mild nausea Patient to be evaluated by Dr. Arce at a.m. Acute hypoxic respiratory failure due to acute CHF , oxygenation improved to 96% on room air? History of nonsustained and sustained V-tach Seems chronic, patient asymptomatic Continue home medication amiodarone, Coreg and Corlanor Runs low blood pressure at baseline, continue all home medication Keep magnesium above 2 and potassium above 4 History of pulmonary embolus Continue Xarelto Mayers's esophagus/GERD continue PPI Code status full code DVT prophylaxis on Xarelto Quality Stroke Does the patient have a stroke diagnosis?: No VTE Prior VTE?: No VTE Risk Level:: Medical - moderate - high VTE Device Contraindication: Treatment Not Indicated VTE Drug Contraindication: N/A - Med Ordered
[2021-05-25] MEDS: Potassium Chloride ER 20 MEQ TAB.ER.PRT PO (16:41)
[2021-05-25] MEDS: Rivaroxaban 20 MG TABLET PO (17:40)
[2021-05-25] MEDS: Amiodarone HCL 200 MG TABLET PO (17:40)
[2021-05-25] MEDS: Atorvastatin Calcium 20 MG TABLET PO (21:01)
[2021-05-25] MEDS: Tamsulosin HCL 0.4 MG CAPSULE PO (21:01)
[2021-05-26] VITALS (9 sets, daily range): BP systolic 95–115; BP diastolic 54–70; PULSE 61–68; RESP 18–20; TEMP 36.4–37.2; O2SAT 94–98; BMI 25.8
[2021-05-26] MEDS: Omeprazole 20 MG CAPSULE.DR PO (05:49)
[2021-05-26 06:36] LABS: Anion Gap 12 (12-20); B Type Natriuretic Peptide 1081 pg/mL (<100); Blood Urea Nitrogen 25 mg/dL (9-16); Calcium 8.5 mg/dL (8.4-10.2); Carbon Dioxide 22 mmol/L (22-29); Chloride 111 mmol/L (96-108); Creatinine Clr Calc Pharmacy 68.5; Estimated Glomerular Filt Rate > 60; Glucose Random 109 mg/dL (60-115); Potassium 4.5 mmol/L (3.3-5.1); Sodium 140 mmol/L (135-145)
[2021-05-26] MEDS: 0.9 % Sodium Chloride Flush 3 ML SYRINGE IVFLUSH ×3 (09:56→20:54)
[2021-05-26] MEDS: Bumetanide 1 MG/4 ML VIAL 2 MG IVPUSH ×2 (09:56→14:24)
[2021-05-26] MEDS: Multivitamin TABLET 1 TAB PO (09:58)
[2021-05-26] MEDS: Magnesium Oxide 400 MG TABLET PO (09:58)
[2021-05-26] MEDS: lisinopriL 10 MG TABLET PO (09:58)
[2021-05-26] MEDS: carvediloL 25 MG TABLET PO ×2 (09:59→20:54)
[2021-05-26] MEDS: Potassium Chloride ER 20 MEQ TAB.ER.PRT 60 MEQ PO ×2 (10:00→20:54)
--- NOTE | 2021-05-26 10:05 | MHC.CM.PN ---
MALE 65 DX HF V-TACH PATIENT CONTINUES TO REQUIRE IV DIURESIS BUMEX. hE ALSO C/O GI UPSET POOR PO INTAKE. DP HOME WITH FAMILY SUPPORT AND TRANSPORTATION.
--- NOTE | 2021-05-26 12:38 | P.PNIM_ITS ---
Subjective Subjective Date of Service: 05/26/21 Interval History: still c/o dyspnea no chest pain Review of Systems Review of Systems: Yes all other systems are reviewed and are negative Physical Exam Vital Signs: Vital Signs: Last Vital Signs Temp 98.7 F 05/26/21 11:55 Pulse 68 05/26/21 11:55 Resp 20 05/26/21 11:55 BP 115/67 05/26/21 11:55 Pulse Ox 96 05/26/21 11:55 BMI result Body Mass Index 25.8 Gen: in no acute distress HEENT: sclera anicteric, moist mucus membranes Neck: supple, JVD present Lungs: clear to auscultation bilaterally Heart: regular rate and rhythm, no murmurs Abd: soft, non-tender, non-distended, somewhat distended Ext: no edema Skin: warm/well-perfused Neuro: alert and oriented x3, no focal findings Psych: appropriate affect Objective Data Active Medications Acetaminophen (Acetaminophen 325 Mg Tablet) 650 mg PO Q6H PRN PRN Reason: Pain, Mild (Pain Scale 1-3) Amiodarone HCl (Amiodarone Hcl 200 Mg Tablet) 200 mg PO DAILY@1800 [facility] Last Admin: 05/25/21 17:40 Dose: 200 mg Documented by: KATLIN Atorvastatin Calcium (Atorvastatin Calcium 20 Mg Tablet) 20 mg PO BEDTIME [facility] Last Admin: 05/25/21 21:01 Dose: 20 mg Documented by: RAFAEL Bumetanide (Bumetanide 1 Mg/4 Ml Vial) 2 mg IVPUSH BID@0800,1400 [facility]; Protocol Last Admin: 05/26/21 09:56 Dose: 2 mg Documented by: JAYLEEN Carvedilol (Carvedilol 25 Mg Tablet) 25 mg PO BID [facility]; Protocol Last Admin: 05/26/21 09:59 Dose: 25 mg Documented by: JAYLEEN Lisinopril (Lisinopril 10 Mg Tablet) 10 mg PO DAILY [facility]; Protocol Last Admin: 05/26/21 09:58 Dose: 10 mg Documented by: JAYLEEN Magnesium Oxide (Magnesium Oxide 400 Mg Tablet) 400 mg PO DAILY [facility] Last Admin: 05/26/21 09:58 Dose: 400 mg Documented by: JALYEEN Mexiletine HCl (Mexiletine Hcl 150 Mg Capsule) 150 mg PO BID@0600,1800 [facility] Last Admin: 05/26/21 05:49 Dose: 150 mg Documented by: RAFAEL Multivitamins/Vitamin C (Multivitamin Tablet) 1 tab PO DAILY [facility] Last Admin: 05/26/21 09:58 Dose: 1 tab Documented by: JAYLEEN Pt Own Med ( Ivabradine [Corlanor ] 5 Mg Tablet) 2.5 each PO BID [facility] Last Admin: 05/26/21 09:59 Dose: 2.5 each Documented by: JAYLEEN Omeprazole (Omeprazole 20 Mg Capsule.) 20 mg PO DAILY@0630 [facility] Last Admin: 05/26/21 05:49 Dose: 20 mg Documented by: RAFAEL Ondansetron HCl (Ondansetron Hcl 4 Mg/2 Ml Vial) 4 mg IVPUSH Q8H PRN PRN Reason: Nausea and Vomiting Pharmacy Consult (Consult Rx Perform Med Rec) 1 each MISCELLANE ONCE PRN PRN Reason: Consult order Potassium Chloride (Potassium Chloride Er 20 Meq Tab.Er.Prt) 60 meq PO BEDTIME [facility] Last Admin: 05/25/21 21:01 Dose: 60 meq Documented by: RAFAEL Potassium Chloride (Potassium Chloride Er 20 Meq Tab.Er.Prt) 60 meq PO DAILY [facility] Last Admin: 05/26/21 10:00 Dose: 60 meq Documented by: JAYLEEN Rivaroxaban (Rivaroxaban 20 Mg Tablet) 20 mg PO DAILY@1800 [facility] Last Admin: 05/25/21 17:40 Dose: 20 mg Documented by: KATLIN Sodium Chloride (0.9 % Sodium Chloride Flush 3 Ml Syringe) 3 ml IVFLUSH QSHIFT [facility] Last Admin: 05/26/21 09:56 Dose: 3 ml Documented by: JAYLEEN Tamsulosin HCl (Tamsulosin Hcl 0.4 Mg Capsule) 0.4 mg PO BEDTIME [facility] Last Admin: 05/25/21 21:01 Dose: 0.4 mg Documented by: RAFAEL Labs CBC & Chem 7: 05/21/21 10:14 05/26/21 05:15 Labs: Laboratory Results - last 24 hr 05/26/21 05/26/21 05:15 05:15 Anion Gap 12 Estim Creat Clear Calc 68.5 Estimated GFR > 60 Random Glucose 109 Calcium 8.5 B-Natriuretic Peptide 1081 H Microbiology Microbiology Results: Microbiology 05/21/21 10:14 Blood Culture - Final Blood - Venous No growth after 5 days. Echocardiogram Interpretation: TTE 05/23/21 - The left ventricular systolic function is severely decreased.? The visually estimated ejection fraction is between 20-25%.? ? ? - Normal right ventricular cavity size and systolic function.? ? There is a pacemaker wire seen in the right ventricle. ? - There is mild tricuspid valve regurgitation.? Significantly? ? elevated right atrial pressure.? Severe pulmonary hypertension is present. ? Assessment and Plan (1) Ventricular tachycardia: Status: Acute (2) Acute exacerbation of CHF (congestive heart failure): Status: Acute Assessment and Plan: hospital d#6 65yo M with VT s/p AICD, HFrEF p/w dyspnea + orthopnea, admitted after defbrillator shock # acute/chrnoic HFrEF - continue IV bumetanide; negative 10.2L thus far; cardiology following; monitor BNP/BMP/Mg/I+O/weight; fluid restrict to 1.5L - continue ivrabadine, carvedilol, lisinopril; start low-dose spironolactone # VT - mexiletine dose reduced to 150mg bid due to dyspnea - continue amiodarone - monitor K/Mg # acute hypoxic resp failure - resolved with diuresis # hx PE - continue rivaroxaban # GERD # Mayers's esophagus - continue PPI # VTE ppx - continue rivaroxaban Quality Stroke Does the patient have a stroke diagnosis?: No VTE Prior VTE?: No VTE Risk Level:: Medical - moderate - high VTE Device Contraindication: Treatment Not Indicated VTE Drug Contraindication: N/A - Med Ordered
--- NOTE | 2021-05-26 14:23 | P.PNCA_ITS ---
Subjective Subjective Date of Service: 05/26/21 <ELSY Park - Last Filed: 05/26/21 14:36> 05/26/21 <Renato Diaz MD - Last Filed: 05/26/21 17:27> Principal diagnosis: CHF, NSVT <ELSY Park - Last Filed: 05/26/21 14:36> Interval history: Cardiology follow up for the above. Seen at 1115. Today he reports that he feels better than admit. He has some mild sob with activity. No orthopnea or PND. Denies chest pains, palpitations. Slept well last night. Not having GI issues like yesterday. Feels his abdomen is still swollen. No leg edema. <ELSY Park - Last Filed: 05/26/21 14:36> Review of Systems Review of Systems as above <ELSY Park - Last Filed: 05/26/21 14:36> Yes all other systems are reviewed and are negative <ELSY Park - Last Filed: 05/26/21 14:36> Physical Exam Vital Signs: Last Vital Signs Temp 98.7 F 05/26/21 11:55 Pulse 68 05/26/21 11:55 Resp 20 05/26/21 11:55 BP 115/67 05/26/21 11:55 Pulse Ox 96 05/26/21 11:55 BMI result Body Mass Index 25.8 <ELSY Park - Last Filed: 05/26/21 14:36> Const General: cooperative, no acute distress, alert and awake <ELSY Park - Last Filed: 05/26/21 14:36> Orientation/consciousness: patient oriented x3 <ELSY Park - Last Filed: 05/26/21 14:36> Neck Neck: Yes normal visual inspection and Yes JVD <ELSY Park - Last Filed: 05/26/21 14:36> Resp Effort & Inspection: normal respiratory effort, able to speak in complete sentences and not labored <ELSY Park - Last Filed: 05/26/21 14:36> Auscultation: clear to auscultation bilaterally, no rales, no rhonchi and no wheezes <Marianna KariYARITZA - Last Filed: 05/26/21 14:36> Cardio Jugular venous distension: JVD present <[facility] Kari AUDIO VISUAL DESIGN ENGINEER - Last Filed: 05/26/21 14:36> Rate: regular rate <[facility] Kari AUDIO VISUAL DESIGN ENGINEER - Last Filed: 05/26/21 14:36> Rhythm: regular rhythm <[facility] Kari [facility] - Last Filed: 05/26/21 14:36> Heart sounds: S1 normal heart sound present and S2 normal heart sound present <[facility] Kari [facility] - Last Filed: 05/26/21 14:36> Peripheral pulses: Peripheral pulses 2+ throughout <[facility] Kari [facility] - Last Filed: 05/26/21 14:36> GI Other: rounded, mild distention, nontender <[facility] Kari [facility] - Last Filed: 05/26/21 14:36> Neuro General: patient oriented x3 <[facility] Kari [facility] - Last Filed: 05/26/21 14:36> Extrem General: Yes normal to inspection and No edema <[facility] KariYARITZA - Last Filed: 05/26/21 14:36> Objective Labs and Meds Result diagrams: : 05/21/21 10:14 05/26/21 05:15 <Marianna KariYARITZA - Last Filed: 05/26/21 14:36> Lab results: Laboratory Results - last 24 hr 05/26/21 05/26/21 05:15 05:15 Sodium 140 Potassium 4.5 Chloride 111 H Carbon Dioxide 22 Anion Gap 12 BUN 25 H Creatinine 1.16 Estim Creat Clear Calc 68.5 Estimated GFR > 60 Random Glucose 109 Calcium 8.5 B-Natriuretic Peptide 1081 H <Marianna KariYARITZA - Last Filed: 05/26/21 14:36> Progress Note: A&P Assessment and plan (1) Acute exacerbation of CHF (congestive heart failure): Status: Acute <Marianna PierceYARITZA - Last Filed: 05/26/21 14:36> Assessment and Plan: Admit with sob, orthopnea - Acute on chronic systolic HF, ICD shock for NSVT. Being diuresed this admit with IV Bumex. Fluid balance neg 10 liters since admit. He reports breathing improving, does have mild abdominal distention. Echo shows EF 20-25%, mild TR, increased RA pressure and severe pulm HTN. Will continue to diurese with IV bumex. Continue strict I+O monitoring, close monitoring of electrolyte and kidney function. Electrolyte replacement as warranted. Will add Aldactone 12.5 mg daily. We will follow <ELSY Park - Last Filed: 05/26/21 14:36> Admit with sob, orthopnea - Acute on chronic systolic HF, ICD shock for NSVT. Being diuresed this admit with IV Bumex. Fluid balance neg 10 liters since admit. He reports breathing improving, does have mild abdominal distention. Echo shows EF 20-25%, mild TR, increased RA pressure and severe pulm HTN. Will continue to diurese with IV bumex. Continue strict I+O monitoring, close monitoring of electrolyte and kidney function. Electrolyte replacement as warranted. Will add Aldactone 12.5 mg daily. We will follow Patient seen and examined. Case discussed with Marianna Pierce. Patient still appears to be fluid overloaded, will continue with IV diuresis with Bumex. Fluid restriction to be pursued. Continue current neurohormonal modulation. Will add low-dose Aldactone. Follow electrolytes. His BNP today is further elevated which is unusual. Continue to trend BNP for discharge purposes. Will follow with the patient. <Renato Diaz MD - Last Filed: 05/26/21 17:27> (2) NSVT (nonsustained ventricular tachycardia): Status: Acute <ELSY Park - Last Filed: 05/26/21 14:36> Assessment and Plan: Hx of NSVT. Prior VT ablation as well. Had ICD shock just prior to admit. On Tele was having NSVT runs. He was continued on his usual Amiodarone, Carvedilol, Corlanor. Mexilitine was added - he had GI symptoms with Q8 hr dosing and it was reduced to q 12 hr, yesterday which he is tolerating. Tele now shows SR, isolated PVCs. <ELSY Park - Last Filed: 05/26/21 14:36> (3) ICD (implantable cardioverter-defibrillator) in place: Status: Acute <ELSY Park - Last Filed: 05/26/21 14:36> Assessment and Plan: Medtronic ICD in place. Followed through our cardiology office. Has remote monitoring in place as well. <ELSY Park - Last Filed: 05/26/21 14:36> (4) Nonischemic cardiomyopathy: Status: Acute <ELSY Park - Last Filed: 05/26/21 14:36> Assessment and Plan: Hx Nonischemic CMP. EF this admit 20-25%. EF was 28% on 02/2021. On Carvedilol and Lisinopril for neurohormonal modulation. Has ICD. <ELSY Garnica Cha - Last Filed: 05/26/21 14:36> Fall Risk Details Current Medications: Current Medications Acetaminophen (Acetaminophen 325 Mg Tablet) 650 mg PO Q6H PRN PRN Reason: Pain, Mild (Pain Scale 1-3) Amiodarone HCl (Amiodarone Hcl 200 Mg Tablet) 200 mg PO DAILY@1800 [facility] Last Admin: 05/25/21 17:40 Dose: 200 mg Documented by: Atorvastatin Calcium (Atorvastatin Calcium 20 Mg Tablet) 20 mg PO BEDTIME [facility] Last Admin: 05/25/21 21:01 Dose: 20 mg Documented by: Bumetanide (Bumetanide 1 Mg/4 Ml Vial) 2 mg IVPUSH BID@0800,1400 [facility]; Protocol Last Admin: 05/26/21 09:56 Dose: 2 mg Documented by: Carvedilol (Carvedilol 25 Mg Tablet) 25 mg PO BID [facility]; Protocol Last Admin: 05/26/21 09:59 Dose: 25 mg Documented by: Lisinopril (Lisinopril 10 Mg Tablet) 10 mg PO DAILY [facility]; Protocol Last Admin: 05/26/21 09:58 Dose: 10 mg Documented by: Magnesium Oxide (Magnesium Oxide 400 Mg Tablet) 400 mg PO DAILY [facility] Last Admin: 05/26/21 09:58 Dose: 400 mg Documented by: Mexiletine HCl (Mexiletine Hcl 150 Mg Capsule) 150 mg PO BID@0600,1800 [facility] Last Admin: 05/26/21 05:49 Dose: 150 mg Documented by: Multivitamins/Vitamin C (Multivitamin Tablet) 1 tab PO DAILY [facility] Last Admin: 05/26/21 09:58 Dose: 1 tab Documented by: Pt Own Med ( Ivabradine [Corlanor ] 5 Mg Tablet) 2.5 each PO BID [facility] Last Admin: 05/26/21 09:59 Dose: 2.5 each Documented by: Omeprazole (Omeprazole 20 Mg Capsule.) 20 mg PO DAILY@0630 [facility] Last Admin: 05/26/21 05:49 Dose: 20 mg Documented by: Ondansetron HCl (Ondansetron Hcl 4 Mg/2 Ml Vial) 4 mg IVPUSH Q8H PRN PRN Reason: Nausea and Vomiting Pharmacy Consult (Consult Rx Perform Med Rec) 1 each MISCELLANE ONCE PRN PRN Reason: Consult order Potassium Chloride (Potassium Chloride Er 20 Meq Tab.Er.Prt) 60 meq PO BEDTIME [facility] Last Admin: 05/25/21 21:01 Dose: 60 meq Documented by: Potassium Chloride (Potassium Chloride Er 20 Meq Tab.Er.Prt) 60 meq PO DAILY [facility] Last Admin: 05/26/21 10:00 Dose: 60 meq Documented by: Rivaroxaban (Rivaroxaban 20 Mg Tablet) 20 mg PO DAILY@1800 [facility] Last Admin: 05/25/21 17:40 Dose: 20 mg Documented by: Sodium Chloride (0.9 % Sodium Chloride Flush 3 Ml Syringe) 3 ml IVFLUSH QSHIFT [facility] Last Admin: 05/26/21 09:56 Dose: 3 ml Documented by: Tamsulosin HCl (Tamsulosin Hcl 0.4 Mg Capsule) 0.4 mg PO BEDTIME [facility] Last Admin: 05/25/21 21:01 Dose: 0.4 mg Documented by: <ELSY Park - Last Filed: 05/26/21 14:36> Time Spent With Patient Time: Total time spent is greater than 50% in coordination of care (as documented) at patient's floor/unit and/or counseling patient: <ELSY Park - Last Filed: 05/26/21 14:36> Time with patient: 15 - 24 minutes <ELSY Park - Last Filed: 05/26/21 14:36> Progress Note: Quality Stroke Does the patient have a stroke diagnosis?: No <ELSY Park - Last Filed: 05/26/21 14:36> Procedures Date of Service Date of Service: 05/26/21 <ELSY Park - Last Filed: 05/26/21 14:36>
[2021-05-26] MEDS: Spironolactone 25 MG TABLET 12.5 MG PO (15:21)
[2021-05-26] MEDS: Rivaroxaban 20 MG TABLET PO (18:05)
[2021-05-26] MEDS: Amiodarone HCL 200 MG TABLET PO (18:05)
[2021-05-26] MEDS: Atorvastatin Calcium 20 MG TABLET PO (20:54)
[2021-05-26] MEDS: Tamsulosin HCL 0.4 MG CAPSULE PO (20:54)
[2021-05-27] VITALS (10 sets, daily range): BP systolic 92–108; BP diastolic 55–65; PULSE 54–62; RESP 17–20; TEMP 36.8–37.2; O2SAT 95–97
[2021-05-27] MEDS: Omeprazole 20 MG CAPSULE.DR PO (05:46)
[2021-05-27 07:15] LABS: Anion Gap 13 (12-20); Blood Urea Nitrogen 26 mg/dL (9-16); Calcium 8.8 mg/dL (8.4-10.2); Carbon Dioxide 22 mmol/L (22-29); Chloride 107 mmol/L (96-108); Creatinine Clr Calc Pharmacy 67.3; Estimated Glomerular Filt Rate > 60; Glucose Random 106 mg/dL (60-115); Magnesium 2.3 mg/dL (1.6-2.6); Potassium 4.2 mmol/L (3.3-5.1); Sodium 138 mmol/L (135-145)
[2021-05-27 07:18] LABS: B Type Natriuretic Peptide 1006 pg/mL (<100)
[2021-05-27] MEDS: 0.9 % Sodium Chloride Flush 3 ML SYRINGE IVFLUSH ×3 (09:01→22:23)
[2021-05-27] MEDS: Multivitamin TABLET 1 TAB PO (09:02)
[2021-05-27] MEDS: Bumetanide 1 MG/4 ML VIAL 2 MG IVPUSH ×2 (09:02→13:31)
[2021-05-27] MEDS: lisinopriL 10 MG TABLET PO (09:03)
[2021-05-27] MEDS: carvediloL 25 MG TABLET PO (09:03)
[2021-05-27] MEDS: Magnesium Oxide 400 MG TABLET PO (09:04)
[2021-05-27] MEDS: Potassium Chloride ER 20 MEQ TAB.ER.PRT 60 MEQ PO ×2 (09:05→22:21)
[2021-05-27] MEDS: Spironolactone 25 MG TABLET 12.5 MG PO (09:10)
--- NOTE | 2021-05-27 10:26 | HO.PM.IMPN ---
Subjective Subjective Date of Service: 05/27/21 Interval History: Dyspnea slightly improved, abdomen still swollen. No telemetry events in last 24hr Review of Systems Review of Systems: Yes all other systems are reviewed and are negative Physical Exam Vital Signs: Vital Signs: Last Vital Signs Temp 98.7 F 05/27/21 07:41 Pulse 62 05/27/21 09:10 Resp 20 05/27/21 07:41 BP 104/65 05/27/21 09:10 Pulse Ox 96 05/27/21 07:41 BMI result Body Mass Index 25.8 Gen: in no acute distress HEENT: sclera anicteric, moist mucus membranes Neck: supple, JVD present Lungs: clear to auscultation bilaterally Heart: regular rate and rhythm, no murmurs Abd: soft, non-tender, non-distended, somewhat distended Ext: no edema Skin: warm/well-perfused Neuro: alert and oriented x3, no focal findings Psych: appropriate affect Objective Data Active Medications Acetaminophen (Acetaminophen 325 Mg Tablet) 650 mg PO Q6H PRN PRN Reason: Pain, Mild (Pain Scale 1-3) Amiodarone HCl (Amiodarone Hcl 200 Mg Tablet) 200 mg PO DAILY@1800 [facility] Last Admin: 05/26/21 18:05 Dose: 200 mg Documented by: JAYLEEN Atorvastatin Calcium (Atorvastatin Calcium 20 Mg Tablet) 20 mg PO BEDTIME [facility] Last Admin: 05/26/21 20:54 Dose: 20 mg Documented by: ANTDELICIA Bumetanide (Bumetanide 1 Mg/4 Ml Vial) 2 mg IVPUSH BID@0800,1400 [facility]; Protocol Last Admin: 05/27/21 09:02 Dose: 2 mg Documented by: DAVID Carvedilol (Carvedilol 25 Mg Tablet) 25 mg PO BID [facility]; Protocol Last Admin: 05/27/21 09:03 Dose: 25 mg Documented by: DAVID Lisinopril (Lisinopril 10 Mg Tablet) 10 mg PO DAILY [facility]; Protocol Last Admin: 05/27/21 09:03 Dose: 10 mg Documented by: DAVID Magnesium Oxide (Magnesium Oxide 400 Mg Tablet) 400 mg PO DAILY [facility] Last Admin: 05/27/21 09:04 Dose: 400 mg Documented by: DAVID Mexiletine HCl (Mexiletine Hcl 150 Mg Capsule) 150 mg PO BID@0600,1800 [facility] Last Admin: 05/27/21 05:46 Dose: 150 mg Documented by: RAFAEL Multivitamins/Vitamin C (Multivitamin Tablet) 1 tab PO DAILY [facility] Last Admin: 05/27/21 09:02 Dose: 1 tab Documented by: DAVID Pt Own Med ( Ivabradine [Corlanor ] 5 Mg Tablet) 0.5 each PO BID [facility] Last Admin: 05/27/21 09:11 Dose: 0.5 each Documented by: DAVID Omeprazole (Omeprazole 20 Mg Capsule.) 20 mg PO DAILY@0630 [facility] Last Admin: 05/27/21 05:46 Dose: 20 mg Documented by: RAFAEL Ondansetron HCl (Ondansetron Hcl 4 Mg/2 Ml Vial) 4 mg IVPUSH Q8H PRN PRN Reason: Nausea and Vomiting Pharmacy Consult (Consult Rx Perform Med Rec) 1 each MISCELLANE ONCE PRN PRN Reason: Consult order Potassium Chloride (Potassium Chloride Er 20 Meq Tab.Er.Prt) 60 meq PO BEDTIME [facility] Last Admin: 05/26/21 20:54 Dose: 60 meq Documented by: RAFAEL Potassium Chloride (Potassium Chloride Er 20 Meq Tab.Er.Prt) 60 meq PO DAILY [facility] Last Admin: 05/27/21 09:05 Dose: 60 meq Documented by: DAVID Rivaroxaban (Rivaroxaban 20 Mg Tablet) 20 mg PO DAILY@1800 [facility] Last Admin: 05/26/21 18:05 Dose: 20 mg Documented by: JAYLEEN Sodium Chloride (0.9 % Sodium Chloride Flush 3 Ml Syringe) 3 ml IVFLUSH QSHIFT [facility] Last Admin: 05/27/21 09:01 Dose: 3 ml Documented by: DAVID Spironolactone (Spironolactone 25 Mg Tablet) 12.5 mg PO DAILY [facility]; Protocol Last Admin: 05/27/21 09:10 Dose: 12.5 mg Documented by: DAVID Tamsulosin HCl (Tamsulosin Hcl 0.4 Mg Capsule) 0.4 mg PO BEDTIME [facility] Last Admin: 05/26/21 20:54 Dose: 0.4 mg Documented by: RAFAEL Labs CBC & Chem 7: 05/21/21 10:14 05/27/21 05:47 Labs: Laboratory Results - last 24 hr 05/27/21 05/27/21 05:47 05:47 Anion Gap 13 Estim Creat Clear Calc 67.3 Estimated GFR > 60 Random Glucose 106 Calcium 8.8 Magnesium 2.3 B-Natriuretic Peptide 1006 H Microbiology Microbiology Results: Microbiology 05/21/21 10:14 Blood Culture - Final Blood - Venous No growth after 5 days. 05/21/21 10:14 Blood Culture - Final Blood - Venous No growth after 5 days. Assessment and Plan (1) Ventricular tachycardia: Status: Acute (2) Acute exacerbation of CHF (congestive heart failure): Status: Acute Assessment and Plan: hospital d#7 65yo M with VT s/p AICD, HFrEF/NICM p/w dyspnea + orthopnea, admitted after defbrillator shock for NSVT # acute/chronic HFrEF - continue IV bumetanide; negative 12L thus far; cardiology following; monitor BNP/BMP/Mg/I+O/weight; fluid restrict to 1.5L - continue ivrabadine, carvedilol, lisinopril; started low-dose spironolactone 12.5mg yeseterday # NSVT - mexiletine dose reduced to 150mg bid due to dyspnea - continue amiodarone - monitor K/Mg # acute hypoxic resp failure - resolved with diuresis # hx PE - continue rivaroxaban # GERD # Mayers's esophagus - continue PPI # VTE ppx - continue rivaroxaban Quality Stroke Does the patient have a stroke diagnosis?: No VTE Prior VTE?: No VTE Risk Level:: Medical - moderate - high VTE Device Contraindication: Treatment Not Indicated VTE Drug Contraindication: N/A - Med Ordered
--- NOTE | 2021-05-27 11:29 | P.PNCA_ITS ---
Subjective Subjective Date of Service: 05/27/21 <ELSY Park - Last Filed: 05/27/21 12:05> 05/27/21 <Renato Diaz MD - Last Filed: 05/27/21 12:13> Principal diagnosis: CHF, NSVT <ELSY Park - Last Filed: 05/27/21 12:05> Interval history: Cardiology follow up for CHF, NSVT. Seen at 0830. Today he reports feeling good. He states his breathing is comfortable, slept well. No chest pains, palpitations, dizziness. Abdomen size is about care home to normal. Has been up to bathroom on own. Frequent voiding in urinal from diuretics. <ELSY Park - Last Filed: 05/27/21 12:05> Review of Systems Review of Systems as above <ELSY Park - Last Filed: 05/27/21 12:05> Yes all other systems are reviewed and are negative <ELSY Park - Last Filed: 05/27/21 12:05> Physical Exam Vital Signs: Last Vital Signs Temp 98.7 F 05/27/21 07:41 Pulse 62 05/27/21 09:10 Resp 20 05/27/21 07:41 BP 104/65 05/27/21 09:10 Pulse Ox 96 05/27/21 07:41 BMI result Body Mass Index 25.8 <ELSY Park - Last Filed: 05/27/21 12:05> Const General: cooperative, no acute distress, alert and awake <ELSY Park - Last Filed: 05/27/21 12:05> Orientation/consciousness: patient oriented x3 <ELSY Park - Last Filed: 05/27/21 12:05> Neck Neck: Yes normal visual inspection and Yes no JVD <ELSY Park - Last Filed: 05/27/21 12:05> Resp Effort & Inspection: normal respiratory effort, able to speak in complete sentences and not labored <ELSY Park - Last Filed: 05/27/21 12:05> Auscultation: clear to auscultation bilaterally, no crackles, no rales, no rhonchi and no wheezes <Marianna KariYARITZA - Last Filed: 05/27/21 12:05> Cardio Palpation: normal PMI <Marianna KariYARITZA - Last Filed: 05/27/21 12:05> Rate: regular rate <[facility] Kari [facility] - Last Filed: 05/27/21 12:05> Rhythm: regular rhythm <[facility] KariYARITZA - Last Filed: 05/27/21 12:05> Heart sounds: S1 normal heart sound present and S2 normal heart sound present <[facility] KariYARITZA - Last Filed: 05/27/21 12:05> GI Other: rounded, soft, nontender - he reports it is distended <[facility] YARITZA Pierce - Last Filed: 05/27/21 12:05> Neuro General: patient oriented x3 <[facility] YARITZA Pierce - Last Filed: 05/27/21 12:05> Extrem General: Yes normal to inspection and No edema <[facility] Kari, NP - Last Filed: 05/27/21 12:05> Objective Labs and Meds Result diagrams: : 05/21/21 10:14 05/27/21 05:47 <Marianna Rodríguez KariYARITZA - Last Filed: 05/27/21 12:05> Lab results: Laboratory Results - last 24 hr 05/27/21 05/27/21 05:47 05:47 Sodium 138 Potassium 4.2 Chloride 107 Carbon Dioxide 22 Anion Gap 13 BUN 26 H Creatinine 1.18 Estim Creat Clear Calc 67.3 Estimated GFR > 60 Random Glucose 106 Calcium 8.8 Magnesium 2.3 B-Natriuretic Peptide 1006 H <Marianna YARITZA Pierce - Last Filed: 05/27/21 12:05> Progress Note: A&P Assessment and plan (1) Acute exacerbation of CHF (congestive heart failure): Status: Acute <Marianna GoodsonABEL henao - Last Filed: 05/27/21 12:05> Assessment and Plan: Ongoing treatment for Acute on chronic systolic HF. He reports abdominal distention is down by half . JVD improving. Being diuresed with IV Bumex. Fluid balance neg 12 liters since admit. Echo shows EF 20-25%, mild TR, increased RA pressure and severe pulm HTN. Known hx of CMP. Continue to diurese with IV bumex. Continue Aldactone. Continue neurohormonal modulation with Carvedilol and Lisinopril. Continue strict I+O monitoring, close monitoring of electrolyte and kidney function. Electrolyte replacement as warranted. We will follow <ELSY Park - Last Filed: 05/27/21 12:05> Ongoing treatment for Acute on chronic systolic HF. He reports abdominal distention is down by half . JVD improving. Being diuresed with IV Bumex. Fluid balance neg 12 liters since admit. Echo shows EF 20-25%, mild TR, increased RA pressure and severe pulm HTN. Known hx of CMP. Continue to diurese with IV bumex. Continue Aldactone. Continue neurohormonal modulation with Carvedilol and Lisinopril. Continue strict I+O monitoring, close monitoring of electrolyte and kidney function. Electrolyte replacement as warranted. We will follow Patient seen and examined. Case discussed with Marianna. Patient has been diuresing well. Still has abdominal distension. Still gets short of breath. Tolerating Aldactone. Continue IV diuresis. Continue carvedilol and lisinopril. In the past has not tolerated Entresto therapy. Will continue monitor renal function and BMP. Ambulate as tolerated today. Anticipate discharge in a day or 2. <Renato Diaz MD - Last Filed: 05/27/21 12:13> (2) Nonischemic cardiomyopathy: Status: Acute <ELSY Park - Last Filed: 05/27/21 12:05> (3) NSVT (nonsustained ventricular tachycardia): Status: Acute <ELSY Park - Last Filed: 05/27/21 12:05> Assessment and Plan: Hx of NSVT. Prior VT ablation as well. Had ICD shock just prior to admit. On Tele was having NSVT runs. He was continued on his usual Amiodarone, Carvedilol, Corlanor. Mexilitine was added - he had GI symptoms with Q8 hr dosing and it was reduced to q 12 hr, 05/25 which he is tolerating. Tele now shows SR, isolated PVCs. <ELSY Park - Last Filed: 05/27/21 12:05> (4) ICD (implantable cardioverter-defibrillator) in place: Status: Acute <ELSY Park - Last Filed: 05/27/21 12:05> Assessment and Plan: Medtronic ICD in place. Followed through our cardiology office. Has remote monitoring in place as well. <ELSY Park - Last Filed: 05/27/21 12:05> Fall Risk Details Current Medications: Current Medications Acetaminophen (Acetaminophen 325 Mg Tablet) 650 mg PO Q6H PRN PRN Reason: Pain, Mild (Pain Scale 1-3) Amiodarone HCl (Amiodarone Hcl 200 Mg Tablet) 200 mg PO DAILY@1800 [facility] Last Admin: 05/26/21 18:05 Dose: 200 mg Documented by: Atorvastatin Calcium (Atorvastatin Calcium 20 Mg Tablet) 20 mg PO BEDTIME [facility] Last Admin: 05/26/21 20:54 Dose: 20 mg Documented by: Bumetanide (Bumetanide 1 Mg/4 Ml Vial) 2 mg IVPUSH BID@0800,1400 [facility]; Protocol Last Admin: 05/27/21 09:02 Dose: 2 mg Documented by: Carvedilol (Carvedilol 25 Mg Tablet) 25 mg PO BID [facility]; Protocol Last Admin: 05/27/21 09:03 Dose: 25 mg Documented by: Lisinopril (Lisinopril 10 Mg Tablet) 10 mg PO DAILY [facility]; Protocol Last Admin: 05/27/21 09:03 Dose: 10 mg Documented by: Magnesium Oxide (Magnesium Oxide 400 Mg Tablet) 400 mg PO DAILY [facility] Last Admin: 05/27/21 09:04 Dose: 400 mg Documented by: Mexiletine HCl (Mexiletine Hcl 150 Mg Capsule) 150 mg PO BID@0600,1800 [facility] Last Admin: 05/27/21 05:46 Dose: 150 mg Documented by: Multivitamins/Vitamin C (Multivitamin Tablet) 1 tab PO DAILY [facility] Last Admin: 05/27/21 09:02 Dose: 1 tab Documented by: Pt Own Med ( Ivabradine [Corlanor ] 5 Mg Tablet) 0.5 each PO BID [facility] Last Admin: 05/27/21 09:11 Dose: 0.5 each Documented by: Omeprazole (Omeprazole 20 Mg Capsule.Dr) 20 mg PO DAILY@0630 [facility] Last Admin: 05/27/21 05:46 Dose: 20 mg Documented by: Ondansetron HCl (Ondansetron Hcl 4 Mg/2 Ml Vial) 4 mg IVPUSH Q8H PRN PRN Reason: Nausea and Vomiting Pharmacy Consult (Consult Rx Perform Med Rec) 1 each MISCELLANE ONCE PRN PRN Reason: Consult order Potassium Chloride (Potassium Chloride Er 20 Meq Tab.Er.Prt) 60 meq PO BEDTIME [facility] Last Admin: 05/26/21 20:54 Dose: 60 meq Documented by: Potassium Chloride (Potassium Chloride Er 20 Meq Tab.Er.Prt) 60 meq PO DAILY [facility] Last Admin: 05/27/21 09:05 Dose: 60 meq Documented by: Rivaroxaban (Rivaroxaban 20 Mg Tablet) 20 mg PO DAILY@1800 [facility] Last Admin: 05/26/21 18:05 Dose: 20 mg Documented by: Sodium Chloride (0.9 % Sodium Chloride Flush 3 Ml Syringe) 3 ml IVFLUSH QSHIFT [facility] Last Admin: 05/27/21 09:01 Dose: 3 ml Documented by: Spironolactone (Spironolactone 25 Mg Tablet) 12.5 mg PO DAILY [facility]; Protocol Last Admin: 05/27/21 09:10 Dose: 12.5 mg Documented by: Tamsulosin HCl (Tamsulosin Hcl 0.4 Mg Capsule) 0.4 mg PO BEDTIME [facility] Last Admin: 05/26/21 20:54 Dose: 0.4 mg Documented by: <ELSY Park - Last Filed: 05/27/21 12:05> Time Spent With Patient Time: Total time spent is greater than 50% in coordination of care (as documented) at patient's floor/unit and/or counseling patient: <ELSY Park - Last Filed: 05/27/21 12:05> Time with patient: 15 - 24 minutes <ELSY Park - Last Filed: 05/27/21 12:05> Progress Note: Quality Stroke Does the patient have a stroke diagnosis?: No <ELSY Park - Last Filed: 05/27/21 12:05> Procedures Date of Service Date of Service: 05/27/21 <ELSY Park - Last Filed: 05/27/21 12:05>
[2021-05-27] MEDS: Rivaroxaban 20 MG TABLET PO (17:22)
[2021-05-27] MEDS: Amiodarone HCL 200 MG TABLET PO (17:22)
[2021-05-27] MEDS: Atorvastatin Calcium 20 MG TABLET PO (22:21)
[2021-05-27] MEDS: Tamsulosin HCL 0.4 MG CAPSULE PO (22:21)
[2021-05-28] VITALS (11 sets, daily range): BP systolic 93–108; BP diastolic 54–68; PULSE 53–68; RESP 15–18; TEMP 36.5–37.2; O2SAT 95–100; BMI 25.6
[2021-05-28] MEDS: Omeprazole 20 MG CAPSULE.DR PO (05:41)
[2021-05-28 07:13] LABS: B Type Natriuretic Peptide 715 pg/mL (<100)
[2021-05-28 07:33] LABS: Anion Gap 14 (12-20); Blood Urea Nitrogen 28 mg/dL (9-16); Calcium 9.1 mg/dL (8.4-10.2); Carbon Dioxide 23 mmol/L (22-29); Chloride 109 mmol/L (96-108); Creatinine Clr Calc Pharmacy 59.7; Estimated Glomerular Filt Rate 54; Glucose Random 100 mg/dL (60-115); Magnesium 2.3 mg/dL (1.6-2.6); Potassium 4.6 mmol/L (3.3-5.1); Sodium 141 mmol/L (135-145)
[2021-05-28] MEDS: Spironolactone 25 MG TABLET 12.5 MG PO (08:54)
[2021-05-28] MEDS: Potassium Chloride ER 20 MEQ TAB.ER.PRT 60 MEQ PO ×2 (08:54→20:55)
[2021-05-28] MEDS: 0.9 % Sodium Chloride Flush 3 ML SYRINGE IVFLUSH ×3 (08:54→20:57)
[2021-05-28] MEDS: Bumetanide 1 MG/4 ML VIAL 2 MG IVPUSH (08:54)
[2021-05-28] MEDS: lisinopriL 10 MG TABLET PO (08:55)
[2021-05-28] MEDS: carvediloL 25 MG TABLET PO ×2 (08:55→20:55)
[2021-05-28] MEDS: Magnesium Oxide 400 MG TABLET PO (08:55)
[2021-05-28] MEDS: Multivitamin TABLET 1 TAB PO (08:55)
--- NOTE | 2021-05-28 12:45 | PM.PNCARD ---
Subjective Subjective Date of Service: 05/28/21 <ELSY Park - Last Filed: 05/28/21 13:01> 05/28/21 <Renato Diaz MD - Last Filed: 05/28/21 13:41> Principal diagnosis: CHF, NSVT <ELSY Park - Last Filed: 05/28/21 13:01> Interval history: CHF, NSVT. Seen at 0830. Today he reports feeling pretty good. He admits to some mild sob at times when he is sitting but denies sob with walking. No chest pains, palpitation. He has a fuzziness in his head that he feels is from the Aldactone. He has had this side effect in the past. No dizziness, falls. No leg edema. Still believes his abdomen is mildly distended. Ambulating in room already this am. <ELSY Park - Last Filed: 05/28/21 13:01> Review of Systems Review of Systems as above <ELSY Park - Last Filed: 05/28/21 13:01> Yes all other systems are reviewed and are negative <ELSY Park - Last Filed: 05/28/21 13:01> Physical Exam Vital Signs: Last Vital Signs Temp 98.0 F 05/28/21 11:06 Pulse 60 05/28/21 11:06 Resp 18 05/28/21 11:06 BP 93/55 L 05/28/21 11:06 Pulse Ox 98 05/28/21 11:06 BMI result Body Mass Index 25.6 <ELSY Park - Last Filed: 05/28/21 13:01> Const General: cooperative, no acute distress, alert and awake <ELSY Park - Last Filed: 05/28/21 13:01> Orientation/consciousness: patient oriented x3 <ELSY Park Last Filed: 05/28/21 13:01> Neck Neck: Yes normal visual inspection and Yes no JVD <ELSY Park - Last Filed: 05/28/21 13:01> Resp Effort & Inspection: normal respiratory effort, able to speak in complete sentences and not labored <[facility] - Last Filed: 05/28/21 13:01> Auscultation: clear to auscultation bilaterally, no rales, no rhonchi and no wheezes <[facility] - Last Filed: 05/28/21 13:01> Cardio Palpation: normal PMI [facility] Last Filed: 05/28/21 13:01> Rate: regular rate [facility] Last Filed: 05/28/21 13:01> Rhythm: regular rhythm [facility] Last Filed: 05/28/21 13:01> Heart sounds: S1 normal heart sound present and S2 normal heart sound present <[facility] - Last Filed: 05/28/21 13:01> Peripheral pulses: Peripheral pulses 2+ throughout <[facility] - Last Filed: 05/28/21 13:01> GI Other: abdomen rounded, soft, nontender <[facility] - Last Filed: 05/28/21 13:01> Neuro General: patient oriented x3 <[facility] - Last Filed: 05/28/21 13:01> Extrem General: Yes normal to inspection and No edema <[facility] - - Last Filed: 05/28/21 13:01> Objective Labs and Meds Result diagrams: : 05/21/21 10:14 05/28/21 06:06 <[facility] Kari [facility] - Last Filed: 05/28/21 13:01> Lab results: Laboratory Results - last 24 hr 05/28/21 05/28/21 06:06 06:06 Sodium 141 Potassium 4.6 Chloride 109 H Carbon Dioxide 23 Anion Gap 14 BUN 28 H Creatinine 1.33 Estim Creat Clear Calc 59.7 Estimated GFR 54 Random Glucose 100 Calcium 9.1 Magnesium 2.3 B-Natriuretic Peptide 715 H <[facility] Kari -C - Last Filed: 05/28/21 13:01> Progress Note: A&P Assessment and plan (1) Acute exacerbation of CHF (congestive heart failure): Status: Acute <ELSY Park - Last Filed: 05/28/21 13:01> Assessment and Plan: Ongoing treatment for Acute on chronic systolic HF. He reports mild abdominal distention is still present. Reports some sob at rest, not with walking. JVD improved. Being diuresed with IV Bumex. Fluid balance neg 14.7 liters since admit. Echo shows EF 20-25%, mild TR, increased RA pressure and severe pulm HTN. Known hx of CMP. Cr 1.33 today which is up from 1.18. Will stop IV Bumex and change back to his usual home po Bumex. He reports fuzziness in head from aldactone, Will discontinue. We are considering use of Jardiance as outpt. Continue neurohormonal modulation with Carvedilol and Lisinopril. Continue strict I+O monitoring, close monitoring of electrolyte and kidney function. Electrolyte replacement as warranted. We will follow <ELSY Park - Last Filed: 05/28/21 13:01> Ongoing treatment for Acute on chronic systolic HF. He reports mild abdominal distention is still present. Reports some sob at rest, not with walking. JVD improved. Being diuresed with IV Bumex. Fluid balance neg 14.7 liters since admit. Echo shows EF 20-25%, mild TR, increased RA pressure and severe pulm HTN. Known hx of CMP. Cr 1.33 today which is up from 1.18. Will stop IV Bumex and change back to his usual home po Bumex. He reports fuzziness in head from aldactone, Will discontinue. We are considering use of Jardiance as outpt. Continue neurohormonal modulation with Carvedilol and Lisinopril. Continue strict I+O monitoring, close monitoring of electrolyte and kidney function. Electrolyte replacement as warranted. We will follow Patient seen and examined. Case discussed with Marianna Pierce. Will switch to p.o. Bumex, he takes 1 mg b.i.d. at home. Continue neurohormonal modulation with carvedilol and Diovan. He does complain of fuzziness in his head. Is willing to switch Aldactone to nighttime. Will do the same. Advised to monitor blood pressure at home. Continue to monitor BMP and BNP tomorrow. If numbers improving and he is hemodynamically stable, plan for discharge tomorrow. <Renato Diaz MD - Last Filed: 05/28/21 13:41> (2) Nonischemic cardiomyopathy: Status: Acute <ELSY Park - Last Filed: 05/28/21 13:01> Assessment and Plan: as above - Follows with Dr Diaz as outpt <ELSY Park - Last Filed: 05/28/21 13:01> (3) ICD (implantable cardioverter-defibrillator) in place: Status: Acute <ELSY Park - Last Filed: 05/28/21 13:01> Assessment and Plan: [employer] ICD in place. Followed through our cardiology office. Has remote monitoring in place as well. <ELSY Park - Last Filed: 05/28/21 13:01> (4) NSVT (nonsustained ventricular tachycardia): Status: Acute <ELSY Park - Last Filed: 05/28/21 13:01> Assessment and Plan: Hx of NSVT. Prior VT ablation as well. Had ICD shock just prior to admit. On Tele was having NSVT runs. He was continued on his usual Amiodarone, Carvedilol, Corlanor. Mexilitine was added - he had GI symptoms with Q8 hr dosing and it was reduced to q 12 hr, 12/12 which he is tolerating. Tele now shows SR, isolated PVCs. - yesterday noted to have 2 brief NSVT runs, asymptomatic. <ELSY Park - Last Filed: 05/28/21 13:01> Fall Risk Details Current Medications: Current Medications Acetaminophen (Acetaminophen 325 Mg Tablet) 650 mg PO Q6H PRN PRN Reason: Pain, Mild (Pain Scale 1-3) Amiodarone HCl (Amiodarone Hcl 200 Mg Tablet) 200 mg PO DAILY@1800 [facility] Last Admin: 05/27/21 17:22 Dose: 200 mg Documented by: Atorvastatin Calcium (Atorvastatin Calcium 20 Mg Tablet) 20 mg PO BEDTIME [facility] Last Admin: 05/27/21 22:21 Dose: 20 mg Documented by: Bumetanide (Bumetanide 1 Mg Tablet) 2 mg PO DAILY [facility]; Protocol Bumetanide (Bumetanide 1 Mg Tablet) 1 mg PO DAILY [facility]; Protocol Carvedilol (Carvedilol 25 Mg Tablet) 25 mg PO BID [facility]; Protocol Last Admin: 05/28/21 08:55 Dose: 25 mg Documented by: Lisinopril (Lisinopril 10 Mg Tablet) 10 mg PO DAILY [facility]; Protocol Last Admin: 05/28/21 08:55 Dose: 10 mg Documented by: Magnesium Oxide (Magnesium Oxide 400 Mg Tablet) 400 mg PO DAILY [facility] Last Admin: 05/28/21 08:55 Dose: 400 mg Documented by: Mexiletine HCl (Mexiletine Hcl 150 Mg Capsule) 150 mg PO BID@0600,1800 [facility] Last Admin: 05/28/21 05:41 Dose: 150 mg Documented by: Multivitamins/Vitamin C (Multivitamin Tablet) 1 tab PO DAILY [facility] Last Admin: 05/28/21 08:55 Dose: 1 tab Documented by: Pt Own Med ( Ivabradine [Corlanor ] 5 Mg Tablet) 0.5 each PO BID [facility] Last Admin: 05/28/21 08:58 Dose: 0.5 each Documented by: Omeprazole (Omeprazole 20 Mg Capsule.Dr) 20 mg PO DAILY@0630 [facility] Last Admin: 05/28/21 05:41 Dose: 20 mg Documented by: Ondansetron HCl (Ondansetron Hcl 4 Mg/2 Ml Vial) 4 mg IVPUSH Q8H PRN PRN Reason: Nausea and Vomiting Pharmacy Consult (Consult Rx Perform Med Rec) 1 each MISCELLANE ONCE PRN PRN Reason: Consult order Potassium Chloride (Potassium Chloride Er 20 Meq Tab.Er.Prt) 60 meq PO BEDTIME [facility] Last Admin: 05/27/21 22:21 Dose: 60 meq Documented by: Potassium Chloride (Potassium Chloride Er 20 Meq Tab.Er.Prt) 60 meq PO DAILY [facility] Last Admin: 05/28/21 08:54 Dose: 60 meq Documented by: Rivaroxaban (Rivaroxaban 20 Mg Tablet) 20 mg PO DAILY@1800 [facility] Last Admin: 05/27/21 17:22 Dose: 20 mg Documented by: Sodium Chloride (0.9 % Sodium Chloride Flush 3 Ml Syringe) 3 ml IVFLUSH QSHIFT [facility] Last Admin: 05/28/21 08:54 Dose: 3 ml Documented by: Tamsulosin HCl (Tamsulosin Hcl 0.4 Mg Capsule) 0.4 mg PO BEDTIME [facility] Last Admin: 05/27/21 22:21 Dose: 0.4 mg Documented by: <ELSY Park - Last Filed: 05/28/21 13:01> Time Spent With Patient Time: Total time spent is greater than 50% in coordination of care (as documented) at patient's floor/unit and/or counseling patient: 22 <ELSY Park - Last Filed: 05/28/21 13:01> Time with patient: 15 - 24 minutes <ELSY Park - Last Filed: 05/28/21 13:01> Progress Note: Quality Stroke Does the patient have a stroke diagnosis?: No <ELSY Park - Last Filed: 05/28/21 13:01> Procedures Date of Service Date of Service: 05/28/21 <ELSY Park - Last Filed: 05/28/21 13:01>
--- NOTE | 2021-05-28 12:48 | P.PNIM_ITS ---
Subjective Subjective Date of Service: 05/28/21 Interval History: Dyspnea continues to improve BNP finally coming down Physical Exam Vital Signs: Vital Signs: Last Vital Signs Temp 98.0 F 05/28/21 11:06 Pulse 60 05/28/21 11:06 Resp 18 05/28/21 11:06 BP 93/55 L 05/28/21 11:06 Pulse Ox 98 05/28/21 11:06 BMI result Body Mass Index 25.6 Gen: in no acute distress HEENT: sclera anicteric, moist mucus membranes Neck: supple, JVD present Lungs: clear to auscultation bilaterally Heart: regular rate and rhythm, no murmurs Abd: soft, non-tender, non-distended, somewhat distended Ext: no edema Skin: warm/well-perfused Neuro: alert and oriented x3, no focal findings Psych: appropriate affect Objective Data Active Medications Acetaminophen (Acetaminophen 325 Mg Tablet) 650 mg PO Q6H PRN PRN Reason: Pain, Mild (Pain Scale 1-3) Amiodarone HCl (Amiodarone Hcl 200 Mg Tablet) 200 mg PO DAILY@1800 [facility] Last Admin: 05/27/21 17:22 Dose: 200 mg Documented by: DAVID Atorvastatin Calcium (Atorvastatin Calcium 20 Mg Tablet) 20 mg PO BEDTIME [facility] Last Admin: 05/27/21 22:21 Dose: 20 mg Documented by: TU Bumetanide (Bumetanide 1 Mg Tablet) 2 mg PO DAILY [facility]; Protocol Bumetanide (Bumetanide 1 Mg Tablet) 1 mg PO DAILY [facility]; Protocol Carvedilol (Carvedilol 25 Mg Tablet) 25 mg PO BID [facility]; Protocol Last Admin: 05/28/21 08:55 Dose: 25 mg Documented by: ARNOL Lisinopril (Lisinopril 10 Mg Tablet) 10 mg PO DAILY [facility]; Protocol Last Admin: 05/28/21 08:55 Dose: 10 mg Documented by: ARNOL Magnesium Oxide (Magnesium Oxide 400 Mg Tablet) 400 mg PO DAILY [facility] Last Admin: 05/28/21 08:55 Dose: 400 mg Documented by: ARNOL Mexiletine HCl (Mexiletine Hcl 150 Mg Capsule) 150 mg PO BID@0600,1800 [facility] Last Admin: 05/28/21 05:41 Dose: 150 mg Documented by: TU Multivitamins/Vitamin C (Multivitamin Tablet) 1 tab PO DAILY [facility] Last Admin: 05/28/21 08:55 Dose: 1 tab Documented by: ARNOL Pt Own Med ( Ivabradine [Corlanor ] 5 Mg Tablet) 0.5 each PO BID [facility] Last Admin: 05/28/21 08:58 Dose: 0.5 each Documented by: ARNOL Omeprazole (Omeprazole 20 Mg Capsule.Dr) 20 mg PO DAILY@0630 [facility] Last Admin: 05/28/21 05:41 Dose: 20 mg Documented by: TU Ondansetron HCl (Ondansetron Hcl 4 Mg/2 Ml Vial) 4 mg IVPUSH Q8H PRN PRN Reason: Nausea and Vomiting Pharmacy Consult (Consult Rx Perform Med Rec) 1 each MISCELLANE ONCE PRN PRN Reason: Consult order Potassium Chloride (Potassium Chloride Er 20 Meq Tab.Er.Prt) 60 meq PO BEDTIME [facility] Last Admin: 05/27/21 22:21 Dose: 60 meq Documented by: TU Potassium Chloride (Potassium Chloride Er 20 Meq Tab.Er.Prt) 60 meq PO DAILY [facility] Last Admin: 05/28/21 08:54 Dose: 60 meq Documented by: ARNOL Rivaroxaban (Rivaroxaban 20 Mg Tablet) 20 mg PO DAILY@1800 [facility] Last Admin: 05/27/21 17:22 Dose: 20 mg Documented by: DAVID Sodium Chloride (0.9 % Sodium Chloride Flush 3 Ml Syringe) 3 ml IVFLUSH QSHIFT [facility] Last Admin: 05/28/21 08:54 Dose: 3 ml Documented by: ARNOL Tamsulosin HCl (Tamsulosin Hcl 0.4 Mg Capsule) 0.4 mg PO BEDTIME [facility] Last Admin: 05/27/21 22:21 Dose: 0.4 mg Documented by: TU Labs CBC & Chem 7: 05/21/21 10:14 05/28/21 06:06 Labs: Laboratory Results - last 24 hr 05/28/21 05/28/21 06:06 06:06 Anion Gap 14 Estim Creat Clear Calc 59.7 Estimated GFR 54 Random Glucose 100 Calcium 9.1 Magnesium 2.3 B-Natriuretic Peptide 715 H Assessment and Plan Assessment and Plan: hospital d#8 65yo M with VT s/p AICD, HFrEF/NICM p/w dyspnea + orthopnea, admitted after defbrillator shock for NSVT # acute/chronic HFrEF - negative 14.7L cumulatively; change to PO bumetanide; cardiology following; monitor BNP/BMP/Mg/I+O/weight; fluid restrict to 1.5L - continue ivrabadine, carvedilol, lisinopril; d/c'ed spironolactone due to dizziness # NSVT - mexiletine dose reduced to 150mg bid due to dyspnea - continue amiodarone - monitor K/Mg # acute hypoxic resp failure - resolved with diuresis # hx PE - continue rivaroxaban # GERD # Mayers's esophagus - continue PPI # VTE ppx - continue rivaroxaban Quality Stroke Does the patient have a stroke diagnosis?: No VTE Prior VTE?: No VTE Risk Level:: Medical - moderate - high VTE Device Contraindication: Treatment Not Indicated VTE Drug Contraindication: N/A - Med Ordered
[2021-05-28] MEDS: Amiodarone HCL 200 MG TABLET PO (16:57)
[2021-05-28] MEDS: Bumetanide 1 MG TABLET 2 MG PO (16:58)
[2021-05-28] MEDS: Rivaroxaban 20 MG TABLET PO (16:58)
[2021-05-28] MEDS: Tamsulosin HCL 0.4 MG CAPSULE PO (20:56)
[2021-05-28] MEDS: Atorvastatin Calcium 20 MG TABLET PO (20:56)
[2021-05-29] VITALS (10 sets, daily range): BP systolic 88–101; BP diastolic 52–59; PULSE 55–60; RESP 16–22; TEMP 36.3–37.1; O2SAT 93–97; BMI 25.6
[2021-05-29] MEDS: Omeprazole 20 MG CAPSULE.DR PO (05:46)
[2021-05-29 06:33] LABS: B Type Natriuretic Peptide 911 pg/mL (<100)
[2021-05-29 06:41] LABS: Anion Gap 12 (12-20); Blood Urea Nitrogen 28 mg/dL (9-16); Calcium 8.7 mg/dL (8.4-10.2); Carbon Dioxide 23 mmol/L (22-29); Chloride 108 mmol/L (96-108); Creatinine Clr Calc Pharmacy 61.1; Estimated Glomerular Filt Rate 56; Glucose Random 101 mg/dL (60-115); Magnesium 2.2 mg/dL (1.6-2.6); Potassium 4.1 mmol/L (3.3-5.1); Sodium 139 mmol/L (135-145)
--- NOTE | 2021-05-29 09:04 | MHC.CM.PN ---
IMM 05/29/21 Male 65 DX HF Met with Patient in regard to discharge planning. Per MD rounds 05/28, Pt likely to discharge today with VNA services. The Pts preference for homecare services was obtained, referral made to [facility]. His will provide transportation home.
[2021-05-29] MEDS: carvediloL 25 MG TABLET PO ×2 (09:36→21:38)
[2021-05-29] MEDS: Magnesium Oxide 400 MG TABLET PO (09:36)
[2021-05-29] MEDS: Potassium Chloride ER 20 MEQ TAB.ER.PRT 60 MEQ PO ×2 (09:36→21:36)
[2021-05-29] MEDS: Multivitamin TABLET 1 TAB PO (09:36)
[2021-05-29] MEDS: Bumetanide 1 MG TABLET PO (09:37)
[2021-05-29] MEDS: lisinopriL 10 MG TABLET PO (09:37)
[2021-05-29] MEDS: 0.9 % Sodium Chloride Flush 3 ML SYRINGE IVFLUSH ×3 (09:41→21:41)
--- NOTE | 2021-05-29 10:57 | P.PNCA_ITS ---
Subjective Subjective Date of Service: 05/29/21 <ELSY Park - Last Filed: 05/29/21 12:00> 05/29/21 <Renato Diaz MD - Last Filed: 05/29/21 12:09> Principal diagnosis: CHF, NSVT <ELSY Park - Last Filed: 05/29/21 12:00> Interval history: Cardiology follow up for the above. Seen at 0830. Today he reports having some abdominal bubbling last night which gives him a weird feeling in his chest. He is not feeling that sensation this morning. He did feel his heart beat go fast once last evening. Breathing comfortable for most part but still has some sob at rest at times. Has been up walking in room. No chest pains, dizziness, presyncope, PND, edema. Sleeps with HOB elevated some. ICD beeping the last 3 mornings at same time. Would prefer to go home tomorrow, anxious over his condition. <ELSY Park - Last Filed: 05/29/21 12:00> Review of Systems Review of Systems as above <ELSY Park - Last Filed: 05/29/21 12:00> Yes all other systems are reviewed and are negative <ELSY Park - Last Filed: 05/29/21 12:00> Physical Exam Vital Signs: Last Vital Signs Temp 98.8 F 05/29/21 07:52 Pulse 58 05/29/21 09:37 Resp 18 05/29/21 07:52 BP 98/59 L 05/29/21 09:37 Pulse Ox 96 05/29/21 07:52 BMI result Body Mass Index 25.6 <ELSY Park - Last Filed: 05/29/21 12:00> Const General: cooperative, no acute distress, alert and awake <ELSY Park Last Filed: 05/29/21 12:00> Orientation/consciousness: patient oriented x3 <ELSY Park Last Filed: 05/29/21 12:00> Neck Neck: Yes normal visual inspection and Yes no JVD <ELSY Park - Last Filed: 05/29/21 12:00> Resp Effort & Inspection: normal respiratory effort and able to speak in complete sentences <Marianna Rodríguez ABEL PierceC - Last Filed: 05/29/21 12:00> Auscultation: clear to auscultation bilaterally, rales (few right base), no rhonchi and no wheezes <Marianna Rodríguez YARITZA Pierce-C - Last Filed: 05/29/21 12:00> Cardio Palpation: normal PMI <Marianna Rodríguez YARITZA Pierce-C - Last Filed: 05/29/21 12:00> Rate: regular rate <Marianna GoodsonYARITZA henao-C - Last Filed: 05/29/21 12:00> Rhythm: regular rhythm <Marianna Rodríguez YARITZA Pierce-C - Last Filed: 05/29/21 12:00> Heart sounds: S1 normal heart sound present and S2 normal heart sound present <Marianna Rodríguez YARITZA Pierce-C - Last Filed: 05/29/21 12:00> Peripheral pulses: Peripheral pulses 2+ throughout <Marianna Rodríguez YARITZA Pierce-C - Last Filed: 05/29/21 12:00> GI Other: rounded, soft, nontender - he states still has some distention. <Marianna Rodríguez YARITZA Pierce-C - Last Filed: 05/29/21 12:00> Inspection: Yes normal to inspection <Marianna Rodríguez YARITZA Pierce-C - Last Filed: 05/29/21 12:00> Neuro General: patient oriented x3 <Marianna Rodríguez YARITZA Pierce-C - Last Filed: 05/29/21 12:00> Extrem General: Yes normal to inspection and No edema <Marianna Rodríguez YARITZA Pierce-C - Last Filed: 05/29/21 12:00> Objective Labs and Meds Result diagrams: : 05/21/21 10:14 05/29/21 05:34 <Marianna Rodríguez YARITZA Pierce-C - Last Filed: 05/29/21 12:00> Lab results: Laboratory Results - last 24 hr 05/29/21 05/29/21 05:34 05:34 Sodium 139 Potassium 4.1 Chloride 108 Carbon Dioxide 23 Anion Gap 12 BUN 28 H Creatinine 1.30 Estim Creat Clear Calc 61.1 Estimated GFR 56 Random Glucose 101 Calcium 8.7 Magnesium 2.2 B-Natriuretic Peptide 911 H <ELSY Park - Last Filed: 05/29/21 12:00> Progress Note: A&P Assessment and plan (1) Acute exacerbation of CHF (congestive heart failure): Status: Acute <ELSY Park - Last Filed: 05/29/21 12:00> Assessment and Plan: Ongoing treatment for Acute on chronic systolic HF. He reports mild abdominal distention is still present. Diuresed 17 .2 liters since admit. Was changed from IV Bumex to po yesterday. He had report head fuzziness with Aldactone which was then stopped. This am he still reports some mild sob at rest and persistent mild abdomenal distention. Echo shows EF 20-25%, mild TR, increased RA pressure and severe pulm HTN. Known hx of CMP.? Cr 1.30 today, 1.33 yesterday. BNP 911 today, 715 yesterday ( was 2200 on 05/22/21) Case reviewed with Dr Diaz. Will give Bumex 2 mg IV today. Will restart aldactone 12.5 mg each evening. Continue neurohormonal modulation with Carvedilol and Lisinopril. Continue strict I+O monitoring, close monitoring of electrolyte and kidney function. Electrolyte replacement as warranted. BMP, BNP in am. We will follow <ELSY Park - Last Filed: 05/29/21 12:00> Ongoing treatment for Acute on chronic systolic HF. He reports mild abdominal distention is still present. Diuresed 17 .2 liters since admit. Was changed from IV Bumex to po yesterday. He had report head fuzziness with Aldactone which was then stopped. This am he still reports some mild sob at rest and persistent mild abdomenal distention. Echo shows EF 20-25%, mild TR, increased RA pressure and severe pulm HTN. Known hx of CMP.? Cr 1.30 today, 1.33 yesterday. BNP 911 today, 715 yesterday ( was 2200 on 05/22/21) Case reviewed with Dr Diaz. Will give Bumex 2 mg IV today. Will restart aldactone 12.5 mg e ach evening. Continue neurohormonal modulation with Carvedilol and Lisinopril. Continue strict I+O monitoring, close monitoring of electrolyte and kidney function. Electrolyte replacement as warranted. BMP, BNP in am. We will follow Patient seen and examined. Case discussed with Marianna Pierce. Patient says he is not feeling well today. Abdominal is more distended and gets more short of breath. He did not sleep last night due to receiving Bumex 2 mg at nighttime and having to go to the bathroom. He has total negative balance which is 17.2 L. his BNP however today's 911 slightly higher than before. His ICD monitoring, OptiVol actually is lower. Plan will start Aldactone 12.5 mg at nighttime, patient willing to try. Continue current neurohormonal modulation. Will given 1 dose of Bumex IV 2 mg in the afternoon time. Strict intake and output chart. Continue monitor electrolytes and kidney function. Potential discharge for tomorrow. <Renato Diaz MD - Last Filed: 05/29/21 12:09> (2) Nonischemic cardiomyopathy: Status: Acute <ELSY Park - Last Filed: 05/29/21 12:00> Assessment and Plan: as above. Follows with Dr Diaz as outpt <ELSY Park - Last Filed: 05/29/21 12:00> (3) NSVT (nonsustained ventricular tachycardia): Status: Acute <ELSY Park - Last Filed: 05/29/21 12:00> Assessment and Plan: Hx of NSVT. Prior VT ablation as well. Had ICD shock just prior to admit. On Tele was having NSVT runs. He was continued on his usual Amiodarone, Carvedilol, Corlanor. Mexilitine was added and is tolerating BID dosing. Tele now shows SR, isolated PVCs. - last warren noted to have one 5 beat NSVT run. He reports that he felt it. Continue Amiodarone, carvedilol, Meilitine, corlanor. Ongoing tele monitoring while inpt. <ELSY Park - Last Filed: 05/29/21 12:00> (4) ICD (implantable cardioverter-defibrillator) in place: Status: Acute <ELSY Park - Last Filed: 05/29/21 12:00> Assessment and Plan: [employer] single lead ICD. He reports device is beeping at 830 each am for few seconds, last 3 days. Interrogation completed showing Device Tone sounded due to unsuccessful care link transmission. ( his remote monitor is at home). Battery 1.9 years, RV amplitude and sensitivity normal range, VVVI mode, low rate 40, 1 VT episode with shock delivered on 05/21/21 0613, Frequent NSVT episodes in monitoring zone, INVESTIGATOR CASH SHORTAGE 3.4% of time. - Reviewed device tone alert with Rep and she reports that tone alert will stop now. Remote transmissions will resume once he is home and near his remote carelink monitor. Reviewed all the above with pt. <ELSY Park - Last Filed: 05/29/21 12:00> Fall Risk Details Current Medications: Current Medications Acetaminophen (Acetaminophen 325 Mg Tablet) 650 mg PO Q6H PRN PRN Reason: Pain, Mild (Pain Scale 1-3) Amiodarone HCl (Amiodarone Hcl 200 Mg Tablet) 200 mg PO DAILY@1800 [facility] Last Admin: 05/28/21 16:57 Dose: 200 mg Documented by: Atorvastatin Calcium (Atorvastatin Calcium 20 Mg Tablet) 20 mg PO BEDTIME [facility] Last Admin: 05/28/21 20:56 Dose: 20 mg Documented by: Bumetanide (Bumetanide 1 Mg Tablet) 2 mg PO DAILY DENNISE; Protocol Last Admin: 05/29/21 09:38 Dose: Not Given Documented by: Bumetanide (Bumetanide 1 Mg Tablet) 1 mg PO DAILY DENNISE; Protocol Last Admin: 05/29/21 09:37 Dose: 1 mg Documented by: Carvedilol (Carvedilol 25 Mg Tablet) 25 mg PO BID DENNISE; Protocol Last Admin: 05/29/21 09:36 Dose: 25 mg Documented by: Lisinopril (Lisinopril 10 Mg Tablet) 10 mg PO DAILY DENNISE; Protocol Last Admin: 05/29/21 09:37 Dose: 10 mg Documented by: Magnesium Oxide (Magnesium Oxide 400 Mg Tablet) 400 mg PO DAILY [facility] Last Admin: 05/29/21 09:36 Dose: 400 mg Documented by: Mexiletine HCl (Mexiletine Hcl 150 Mg Capsule) 150 mg PO BID@0600,1800 [facility] Last Admin: 05/29/21 05:47 Dose: 150 mg Documented by: Multivitamins/Vitamin C (Multivitamin Tablet) 1 tab PO DAILY [facility] Last Admin: 05/29/21 09:36 Dose: 1 tab Documented by: Pt Own Med ( Ivabradine [Corlanor ] 5 Mg Tablet) 0.5 each PO BID [facility] Last Admin: 05/29/21 09:38 Dose: 0.5 each Documented by: Omeprazole (Omeprazole 20 Mg Capsule.) 20 mg PO DAILY@0630 [facility] Last Admin: 05/29/21 05:46 Dose: 20 mg Documented by: Ondansetron HCl (Ondansetron Hcl 4 Mg/2 Ml Vial) 4 mg IVPUSH Q8H PRN PRN Reason: Nausea and Vomiting Pharmacy Consult (Consult Rx Perform Med Rec) 1 each MISCELLANE ONCE PRN PRN Reason: Consult order Potassium Chloride (Potassium Chloride Er 20 Meq Tab.Er.Prt) 60 meq PO BEDTIME [facility] Last Admin: 05/28/21 20:55 Dose: 60 meq Documented by: Potassium Chloride (Potassium Chloride Er 20 Meq Tab.Er.Prt) 60 meq PO DAILY [facility] Last Admin: 05/29/21 09:36 Dose: 60 meq Documented by: Rivaroxaban (Rivaroxaban 20 Mg Tablet) 20 mg PO DAILY@1800 [facility] Last Admin: 05/28/21 16:58 Dose: 20 mg Documented by: Sodium Chloride (0.9 % Sodium Chloride Flush 3 Ml Syringe) 3 ml IVFLUSH QSHIFT [facility] Last Admin: 05/29/21 09:41 Dose: 3 ml Documented by: Tamsulosin HCl (Tamsulosin Hcl 0.4 Mg Capsule) 0.4 mg PO BEDTIME [facility] Last Admin: 05/28/21 20:56 Dose: 0.4 mg Documented by: <ELSY Park - Last Filed: 05/29/21 12:00> Time Spent With Patient Time: Total time spent is greater than 50% in coordination of care (as doc umented) at patient's floor/unit and/or counseling patient: 24 <ELSY Park - Last Filed: 05/29/21 12:00> Time with patient: 15 - 24 minutes <ELSY Pakr - Last Filed: 05/29/21 12:00> Progress Note: Quality Stroke Does the patient have a stroke diagnosis?: No <ELSY Park - Last Filed: 05/29/21 12:00> Procedures Date of Service Date of Service: 05/29/21 <ELSY Park - Last Filed: 05/29/21 12:00>
--- NOTE | 2021-05-29 11:30 | HO.PM.IMPN ---
Subjective Subjective Date of Service: 05/29/21 Interval History: Feels more distended in abd today; not short of breath Willing to try spironolactone again 5 beats NSVT last night, felt by pt Review of Systems Review of Systems: Yes all other systems are reviewed and are negative Physical Exam Vital Signs: Vital Signs: Last Vital Signs Temp 97.8 F 05/29/21 11:25 Pulse 59 05/29/21 11:25 Resp 18 05/29/21 11:25 BP 101/56 L 05/29/21 11:25 Pulse Ox 96 05/29/21 11:25 BMI result Body Mass Index 25.6 Gen: in no acute distress HEENT: sclera anicteric, moist mucus membranes Neck: supple, JVD present Lungs: clear to auscultation bilaterally Heart: regular rate and rhythm, no murmurs Abd: soft, non-tender, non-distended, somewhat distended Ext: no edema Skin: warm/well-perfused Neuro: alert and oriented x3, no focal findings Psych: appropriate affect Objective Data Active Medications Acetaminophen (Acetaminophen 325 Mg Tablet) 650 mg PO Q6H PRN PRN Reason: Pain, Mild (Pain Scale 1-3) Amiodarone HCl (Amiodarone Hcl 200 Mg Tablet) 200 mg PO DAILY@1800 [facility] Last Admin: 05/28/21 16:57 Dose: 200 mg Documented by: COTEMA Atorvastatin Calcium (Atorvastatin Calcium 20 Mg Tablet) 20 mg PO BEDTIME [facility] Last Admin: 05/28/21 20:56 Dose: 20 mg Documented by: DANIAL Bumetanide (Bumetanide 1 Mg/4 Ml Vial) 2 mg IVPUSH ONCE ONE; Protocol Stop: 05/29/21 14:01 Carvedilol (Carvedilol 25 Mg Tablet) 25 mg PO BID [facility]; Protocol Last Admin: 05/29/21 09:36 Dose: 25 mg Documented by: MELLISA Lisinopril (Lisinopril 10 Mg Tablet) 10 mg PO DAILY [facility]; Protocol Last Admin: 05/29/21 09:37 Dose: 10 mg Documented by: MELLISA Magnesium Oxide (Magnesium Oxide 400 Mg Tablet) 400 mg PO DAILY [facility] Last Admin: 05/29/21 09:36 Dose: 400 mg Documented by: MELLISA Mexiletine HCl (Mexiletine Hcl 150 Mg Capsule) 150 mg PO BID@0600,1800 [facility] Last Admin: 05/29/21 05:47 Dose: 150 mg Documented by: DANIAL Multivitamins/Vitamin C (Multivitamin Tablet) 1 tab PO DAILY [facility] Last Admin: 05/29/21 09:36 Dose: 1 tab Documented by: MELLISA Pt Own Med ( Ivabradine [Corlanor ] 5 Mg Tablet) 0.5 each PO BID [facility] Last Admin: 05/29/21 09:38 Dose: 0.5 each Documented by: MELLISA Omeprazole (Omeprazole 20 Mg Capsule.) 20 mg PO DAILY@0630 [facility] Last Admin: 05/29/21 05:46 Dose: 20 mg Documented by: DANIAL Ondansetron HCl (Ondansetron Hcl 4 Mg/2 Ml Vial) 4 mg IVPUSH Q8H PRN PRN Reason: Nausea and Vomiting Pharmacy Consult (Consult Rx Perform Med Rec) 1 each MISCELLANE ONCE PRN PRN Reason: Consult order Potassium Chloride (Potassium Chloride Er 20 Meq Tab.Er.Prt) 60 meq PO BEDTIME [facility] Last Admin: 05/28/21 20:55 Dose: 60 meq Documented by: DANIAL Potassium Chloride (Potassium Chloride Er 20 Meq Tab.Er.Prt) 60 meq PO DAILY [facility] Last Admin: 05/29/21 09:36 Dose: 60 meq Documented by: MELLISA Rivaroxaban (Rivaroxaban 20 Mg Tablet) 20 mg PO DAILY@1800 [facility] Last Admin: 05/28/21 16:58 Dose: 20 mg Documented by: COTEMA Sodium Chloride (0.9 % Sodium Chloride Flush 3 Ml Syringe) 3 ml IVFLUSH QSHIFT [facility] Last Admin: 05/29/21 09:41 Dose: 3 ml Documented by: MELLISA Spironolactone (Spironolactone 25 Mg Tablet) 12.5 mg PO DAILY [facility]; Protocol Tamsulosin HCl (Tamsulosin Hcl 0.4 Mg Capsule) 0.4 mg PO BEDTIME [facility] Last Admin: 05/28/21 20:56 Dose: 0.4 mg Documented by: DANIAL Labs CBC & Chem 7: 05/21/21 10:14 05/29/21 05:34 Labs: Laboratory Results - last 24 hr 05/29/21 05/29/21 05:34 05:34 Anion Gap 12 Estim Creat Clear Calc 61.1 Estimated GFR 56 Random Glucose 101 Calcium 8.7 Magnesium 2.2 B-Natriuretic Peptide 911 H Assessment and Plan (1) Acute exacerbation of CHF (congestive heart failure): Status: Acute (2) Ventricular tachycardia: Status: Acute Assessment and Plan: hospital d#9 65yo M with VT s/p AICD, HFrEF/NICM [LVEF 20%] p/w dyspnea + orthopnea, admitted after defbrillator shock for NSVT # acute/chronic HFrEF - negative 17.2L cumulatively; cardiology following; BNP is up a little today; will give 1 dose IV bumetanide; monitor BNP/BMP/Mg/I+O/weight; fluid restrict to 1.5L - continue ivrabadine, carvedilol, lisinopril; restart spironolactone # NSVT - mexiletine dose reduced to 150mg bid due to dyspnea - continue amiodarone - monitor K/Mg - AICD interrogation: [employer] single lead ICD. He reports device is beeping at 830 each am for few seconds, last 3 days. Interrogation completed showing Device Tone sounded due to unsuccessful care link transmission. ( his remote monitor is at home). Battery 1.9 years, RV amplitude and sensitivity normal range, VVVI mode, low rate 40, 1 VT episode with shock delivered on 05/21/21 0613, Frequent NSVT episodes in monitoring zone, CERTIFIED FLIGHT INSTRUCTOR 3.4% of time.? - Reviewed device tone alert with Rep and she reports that tone alert will stop now. Remote transmissions will resume once he is home and near his remote carelink monitor. # acute hypoxic resp failure - resolved with diuresis # hx PE - continue rivaroxaban # GERD # Mayers's esophagus - continue PPI # VTE ppx - continue rivaroxaban # dispo - anticipate home with VNA in next 1-2d Quality Stroke Does the patient have a stroke diagnosis?: No VTE Prior VTE?: No VTE Risk Level:: Medical - moderate - high VTE Device Contraindication: Treatment Not Indicated VTE Drug Contraindication: N/A - Med Ordered
[2021-05-29] MEDS: Bumetanide 1 MG/4 ML VIAL 2 MG IVPUSH (14:35)
[2021-05-29] MEDS: Rivaroxaban 20 MG TABLET PO (17:57)
[2021-05-29] MEDS: Amiodarone HCL 200 MG TABLET PO (17:57)
--- NOTE | 2021-05-29 18:58 | PC.NURSE ---
Patients BP 85/54 on machine, 88/52 manual at 6pm. Pulse 60. MD notified, no interventions at this time.
[2021-05-29] MEDS: Atorvastatin Calcium 20 MG TABLET PO (21:37)
[2021-05-29] MEDS: Spironolactone 25 MG TABLET 12.5 MG PO (21:37)
[2021-05-29] MEDS: Tamsulosin HCL 0.4 MG CAPSULE PO (21:37)
--- NOTE | 2021-05-30 | ECG_ITS ---
Test Reason : CHF Blood Pressure : / mmHG Vent. Rate : 063 BPM Atrial Rate : 063 BPM P-R Int : 240 ms QRS Dur : 110 ms QT Int : 426 ms P-R-T Axes : 025 -24 139 degrees QTc Int : 435 ms Sinus rhythm with sinus arrhythmia with 1st degree A-V block Low voltage QRS Septal infarct (cited on or before 21-MAY-2021) Abnormal ECG When compared with ECG of 21-MAY-2021 09:39, No significant change was found Referred By: Marianna Pierce Electronically Signed By:BRYANNA MORELAND MD
[2021-05-30 03:48] VITALS: BP 95/55; PULSE 55; RESP 17; TEMP 35.6; O2SAT 97
[2021-05-30 05:42] VITALS: BMI 25.4
[2021-05-30] MEDS: Omeprazole 20 MG CAPSULE.DR PO (06:14)
[2021-05-30 07:25] LABS: B Type Natriuretic Peptide 608 pg/mL (<100)
[2021-05-30 07:30] LABS: Anion Gap 14 (12-20); Blood Urea Nitrogen 29 mg/dL (9-16); Calcium 9.1 mg/dL (8.4-10.2); Carbon Dioxide 23 mmol/L (22-29); Chloride 107 mmol/L (96-108); Creatinine Clr Calc Pharmacy 60.2; Estimated Glomerular Filt Rate 55; Glucose Random 90 mg/dL (60-115); Magnesium 2.3 mg/dL (1.6-2.6); Potassium 4.8 mmol/L (3.3-5.1); Sodium 139 mmol/L (135-145)
[2021-05-30 08:04] VITALS: BP 107/64; PULSE 58; O2SAT 96
[2021-05-30] MEDS: 0.9 % Sodium Chloride Flush 3 ML SYRINGE IVFLUSH (08:49)
[2021-05-30] MEDS: Potassium Chloride ER 20 MEQ TAB.ER.PRT 60 MEQ PO (08:51)
[2021-05-30 08:52] VITALS: BP 101/58; PULSE 61
[2021-05-30] MEDS: Multivitamin TABLET 1 TAB PO (08:52)
[2021-05-30] MEDS: Spironolactone 25 MG TABLET 12.5 MG PO (08:52)
[2021-05-30] MEDS: Magnesium Oxide 400 MG TABLET PO (08:52)
[2021-05-30 08:54] VITALS: BP 101/58; PULSE 61
[2021-05-30] MEDS: lisinopriL 10 MG TABLET PO (08:54)
[2021-05-30] MEDS: carvediloL 25 MG TABLET PO (08:54)
[2021-05-30] MEDS: Bumetanide 1 MG TABLET 2 MG PO (10:52)
--- NOTE | 2021-05-30 11:54 | PM.PNCARD ---
Subjective Subjective Date of Service: 05/30/21 <ELSY Park - Last Filed: 05/30/21 12:09> 05/30/21 <Renato Diaz MD - Last Filed: 05/30/21 12:26> Principal diagnosis: CHF, NSVT <ELSY Park - Last Filed: 05/30/21 12:09> Interval history: Cardiology follow up for CHF, NSVT. Seen at 0840. Today he reports feeling better. He did not sleep well last night due to interruptions and is hoping to be able to go home today. Breathing good when walking in room. Notices some sob at times when sitting, which is not a new symptom for him. No cough, slept with HOB down. Now tells me that his abdomen size is back to his normal. No chest or abdominal discomfort. No GI upset. Did not report fuzziness in head this am. <ELSY Park - Last Filed: 05/30/21 12:09> Review of Systems Review of Systems as above <ELSY Park - Last Filed: 05/30/21 12:09> Yes all other systems are reviewed and are negative <ELSY Park - Last Filed: 05/30/21 12:09> Physical Exam Vital Signs: Last Vital Signs Temp 96.1 F L 05/30/21 03:48 Pulse 61 05/30/21 08:54 Resp 17 05/30/21 03:48 BP 101/58 L 05/30/21 08:54 Pulse Ox 96 05/30/21 08:04 BMI result Body Mass Index 25.4 <ELSY Park - Last Filed: 05/30/21 12:09> Const General: cooperative, no acute distress, alert and awake <ELSY Park - Last Filed: 05/30/21 12:09> Orientation/consciousness: patient oriented x3 <ELSY Park - Last Filed: 05/30/21 12:09> Neck Neck: Yes normal visual inspection and Yes no JVD <ELSY Park - Last Filed: 05/30/21 12:09> Resp Effort & Inspection: normal respiratory effort, able to speak in complete sentences and not labored <Marianna Pierce NP-C - Last Filed: 05/30/21 12:09> Auscultation: clear to auscultation bilaterally, no rales, no rhonchi and no wheezes <Marianna YARITZA Pierce-C - Last Filed: 05/30/21 12:09> Cardio Palpation: normal PMI <Marianna Kari DATA CONSULTANT-C - Last Filed: 05/30/21 12:09> Rate: regular rate <Marianna M Kari DATA CONSULTANT-C - Last Filed: 05/30/21 12:09> Rhythm: regular rhythm <[facility] Kari DATA CONSULTANT-C - Last Filed: 05/30/21 12:09> Heart sounds: S1 normal heart sound present and S2 normal heart sound present <[facility] Kari DATA CONSULTANT-C - Last Filed: 05/30/21 12:09> Peripheral pulses: Peripheral pulses 2+ throughout <Marianna M Kari DATA CONSULTANT-C - Last Filed: 05/30/21 12:09> GI Other: rounded, soft, nontender <[facility] Kari DATA CONSULTANT-C - Last Filed: 05/30/21 12:09> Inspection: Yes normal to inspection <Marianna Kari DATA CONSULTANT-C - Last Filed: 05/30/21 12:09> Neuro General: patient oriented x3 <Marianna Kari DATA CONSULTANT-C - Last Filed: 05/30/21 12:09> Extrem General: Yes normal to inspection and No edema <[facility] Kari, DATA CONSULTANT-C - Last Filed: 05/30/21 12:09> Objective Labs and Meds Result diagrams: : 05/21/21 10:14 05/30/21 05:52 <[facility] Kari, DATA CONSULTANT-C - Last Filed: 05/30/21 12:09> Lab results: Laboratory Results - last 24 hr 05/30/21 05/30/21 05:52 05:52 Sodium 139 Potassium 4.8 Chloride 107 Carbon Dioxide 23 Anion Gap 14 BUN 29 H Creatinine 1.32 Estim Creat Clear Calc 60.2 Estimated GFR 55 Random Glucose 90 Calcium 9.1 Magnesium 2.3 B-Natriuretic Peptide 608 H <ELSY Park - Last Filed: 05/30/21 12:09> Progress Note: A&P Assessment and plan (1) Acute exacerbation of CHF (congestive heart failure): Status: Acute <ELSY Park - Last Filed: 05/30/21 12:09> Assessment and Plan: Has been managed this admit for acute on chronic systolic CHF. He has been diuresed with IV Bumex to negative fluid balance of 19 liters since admit, according to I+Os. Clinically he has had improvement in breathing, and abdominal size. Cr is stable at 1.32, K 4.8. BNP this am 608 which is down for a high of 2200 on 05/22/21). He feels ready for discharge. Will restart usual home Bumex at 2 mg po bid. He has been started on Aldactone 12.5mg q PM, which will continue as outpt. Continue Carvedilol and Lisinopril for neurohormonal modulation. He can be discharged from a cardiology perspective. We will arrange for outpt cardiology follow up. <ELSY Park - Last Filed: 05/30/21 12:09> Has been managed this admit for acute on chronic systolic CHF. He has been diuresed with IV Bumex to negative fluid balance of 19 liters since admit, according to I+Os. Clinically he has had improvement in breathing, and abdominal size. Cr is stable at 1.32, K 4.8. BNP this am 608 which is down for a high of 2200 on 05/22/21). He feels ready for discharge. Will restart usual home Bumex at 2 mg po bid. He has been started on Aldactone 12.5mg q PM, which will continue as outpt. Continue Carvedilol and Lisinopril for neurohormonal modulation. He can be discharged from a cardiology perspective. We will arrange for outpt cardiology follow up. Patient seen and examined. Case discussed with Marianna Pierce. Patient feeling a lot better. Tolerating all his medications. Continue the same. Can restart Bumex 2 mg b.i.d. as home dose. Aldactone at nighttime. Advised to monitor blood pressure at home. Continue Corlanor as before. Advised to avoid significant fluid intake. Strict intake and output chart at home as well as daily weight monitoring and avoidance of salt loading was discussed. He does recognize heart failure management well, advised him to seek earlier care if need be. Follow up in the clinic in 2 weeks time after blood work. <Renato Diaz MD - Last Filed: 05/30/21 12:26> (2) NSVT (nonsustained ventricular tachycardia): Status: Acute <ELSY Park - Last Filed: 05/30/21 12:09> Assessment and Plan: NSVT episode with ICD shock just prior to admit. This admit has had short runs of NSVT, last episode 9p 12/15 which was 5 beats. He was started on Mexilitine this admit, which he is tolerating. PVCs, NSVT have lessened overall. He continues on Carvedilol and Corlanor. EKG this am shows SR, with SA, 1st degree avb, rate 63, QTc 435ms. <ELSY Park - Last Filed: 05/30/21 12:09> NSVT episode with ICD shock just prior to admit. This admit has had short runs of NSVT, last episode 9p 12/15 which was 5 beats. He was started on Mexilitine this admit, which he is tolerating. PVCs, NSVT have lessened overall. He continues on Carvedilol and Corlanor. EKG this am shows SR, with SA, 1st degree avb, rate 63, QTc 435ms. Plan to continue mexiletine and amiodarone. Appears that this ventricular arrhythmias was due to decompensated heart failure and probably from LV stretch. Will monitor in the clinic for 3 months. If his arrhythmias a predominantly suppressed, may consider discontinuing mexiletine therapy. Will also refer him as outpatient to [facility] for [facility]. <Renato Diaz MD - Last Filed: 05/30/21 12:26> (3) Nonischemic cardiomyopathy: Status: Acute <ELSY Park - Last Filed: 05/30/21 12:09> Assessment and Plan: He has known hx of nonischemic CMP and is followed by our cardiology office. Echo this admit showed EF 20-25%, mild TR, increased RA pressures and severe pulm HTN. ICD in place. On appropriate medication management. <ELSY Park - Last Filed: 05/30/21 12:09> (4) ICD (implantable cardioverter-defibrillator) in place: Status: Acute <ELSY Park - Last Filed: 05/30/21 12:09> Assessment and Plan: [employer]onic single lead ICD in place. Interrogation yesterday shows device is functioning normally. Has remote monitoring in placed. <ELSY Park - Last Filed: 05/30/21 12:09> Fall Risk Details Current Medications: Current Medications Acetaminophen (Acetaminophen 325 Mg Tablet) 650 mg PO Q6H PRN PRN Reason: Pain, Mild (Pain Scale 1-3) Amiodarone HCl (Amiodarone Hcl 200 Mg Tablet) 200 mg PO DAILY@1800 [facility] Last Admin: 05/29/21 17:57 Dose: 200 mg Documented by: Atorvastatin Calcium (Atorvastatin Calcium 20 Mg Tablet) 20 mg PO BEDTIME [facility] Last Admin: 05/29/21 21:37 Dose: 20 mg Documented by: Bumetanide (Bumetanide 1 Mg Tablet) 2 mg PO BID@0800,1700 [facility]; Protocol Last Admin: 05/30/21 10:52 Dose: 2 mg Documented by: Carvedilol (Carvedilol 25 Mg Tablet) 25 mg PO BID [facility]; Protocol Last Admin: 05/30/21 08:54 Dose: 25 mg Documented by: Lisinopril (Lisinopril 10 Mg Tablet) 10 mg PO DAILY [facility]; Protocol Last Admin: 05/30/21 08:54 Dose: 10 mg Documented by: Magnesium Oxide (Magnesium Oxide 400 Mg Tablet) 400 mg PO DAILY [facility] Last Admin: 05/30/21 08:52 Dose: 400 mg Documented by: Mexiletine HCl (Mexiletine Hcl 150 Mg Capsule) 150 mg PO BID@0600,1800 [facility] Last Admin: 05/30/21 06:14 Dose: 150 mg Documented by: Multivitamins/Vitamin C (Multivitamin Tablet) 1 tab PO DAILY [facility] Last Admin: 05/30/21 08:52 Dose: 1 tab Documented by: Pt Own Med ( Ivabradine [Corlanor ] 5 Mg Tablet) 0.5 each PO BID [facility] Last Admin: 05/30/21 08:58 Dose: 0.5 each Documented by: Omeprazole (Omeprazole 20 Mg Capsule.) 20 mg PO DAILY@0630 [facility] Last Admin: 05/30/21 06:14 Dose: 20 mg Documented by: Ondansetron HCl (Ondansetron Hcl 4 Mg/2 Ml Vial) 4 mg IVPUSH Q8H PRN PRN Reason: Nausea and Vomiting Pharmacy Consult (Consult Rx Perform Med Rec) 1 each MISCELLANE ONCE PRN PRN Reason: Consult order Potassium Chloride (Potassium Chloride Er 20 Meq Tab.Er.Prt) 60 meq PO BEDTIME [facility] Last Admin: 05/29/21 21:36 Dose: 60 meq Documented by: Potassium Chloride (Potassium Chloride Er 20 Meq Tab.Er.Prt) 60 meq PO DAILY [facility] Last Admin: 05/30/21 08:51 Dose: 60 meq Documented by: Rivaroxaban (Rivaroxaban 20 Mg Tablet) 20 mg PO DAILY@1800 [facility] Last Admin: 05/29/21 17:57 Dose: 20 mg Documented by: Sodium Chloride (0.9 % Sodium Chloride Flush 3 Ml Syringe) 3 ml IVFLUSH QSHIFT [facility] Last Admin: 05/30/21 08:49 Dose: 3 ml Documented by: Spironolactone (Spironolactone 25 Mg Tablet) 12.5 mg PO DAILY [facility]; Protocol Last Admin: 05/30/21 08:52 Dose: 12.5 mg Documented by: Tamsulosin HCl (Tamsulosin Hcl 0.4 Mg Capsule) 0.4 mg PO BEDTIME [facility] Last Admin: 05/29/21 21:37 Dose: 0.4 mg Documented by: <ELSY Park - Last Filed: 05/30/21 12:09> Time Spent With Patient Time: Total time spent is greater than 50% in coordination of care (as documented) at patient's floor/unit and/or counseling patient: 24 <ELSY Park - Last Filed: 05/30/21 12:09> Time with patient: 15 - 24 minutes <ELSY Park - Last Filed: 05/30/21 12:09> Progress Note: Quality Stroke Does the patient have a stroke diagnosis?: No <ELSY Park - Last Filed: 05/30/21 12:09> Procedures Date of Service Date of Service: 05/30/21 <ELSY Park - Last Filed: 05/30/21 12:09>
[2021-05-30 12:00] VITALS: BP 110/75; PULSE 62; RESP 20; TEMP 37.2; O2SAT 96
--- NOTE | 2021-05-30 12:41 | P.F2F_ITS ---
Service Date Service Date: 05/30/21 Encounter Date of encounter: 05/30/21 Reasons for Services Signs and symptoms assessed: HF Reason for intermediate: CV/CP assess and/or care, medication management, medication treatment and teach disease management Reason for physical therapy: home safety and mobility, therapeutic exercises, gait/transfer training, assess need for DME, ADL training and energy conservation MD Overseeing Care: Rico Benavides Homebound: Leaving the home is medically contraindicated at this time without the asist of a device and/or another person due th the listed conditions above and below. Reason homebound: shortness of breath with minimal effort and weakness related to hospital stay Certification: Based on the above findings, I certify that this patient is confined to the home and needs intermittent intermediate care, physical therapy and/or speech therapy, or continues to need occupational therapy. The patient is under my care, and I have initiated the establishment of the plan of care. The patient will be followed by a physician who will periodically review the plan of care.
--- NOTE | 2021-05-30 12:57 | MHC.CM.PN ---
CM addressed IMM with Patient and his , providing them with the original and placing a copy on the chart.
--- NOTE | 2021-05-30 13:02 | MHC.CM.PN ---
pt dcd today no skilled servceis ordered by
--- NOTE | 2021-05-30 13:04 | P.DS_ITS ---
DS: Providers Provider Date of Service: 05/30/21 Date of admission: 05/21/21 15:41 Date of discharge: 05/30/21 Primary care physician: Rico Benavides MD Consults: 05/21/21 15:48 Consult to Cardiology Routine Consulting Provider: Nithin Abdi Reason for consultation: chf Has provider been notified: No DS: Diagnosis Discharge Diagnosis (1) NSVT (nonsustained ventricular tachycardia): Status: Acute (2) Nonischemic cardiomyopathy: Status: Acute (3) ICD (implantable cardioverter-defibrillator) in place: Status: Acute (4) Hypoxia: Status: Acute (5) Acute on chronic HFrEF (heart failure with reduced ejection fraction): Status: Acute DS: Summary Hospital Course Hospital Course: from admission H+P by hospitalist Imelda Hess MD, 05/21/21: 65-year-old male with past medical history significant for chronic heart failure with reduced ejection fraction, hypertension, nonischemic cardiomyopathy, nonsustained ventricular tachycardia, sustained ventricular tachycardia status post ICD, pulmonary embolism on Xarelto, CKD, hypercholesterolemia, diabetes type 2, GERD, Mayers's esophagus, BPH, thyroid nodule, tubular adenoma of colon and overweight presented to the ED with complaints of shortness of b reath worse with exertion, orthopnea times few days duration, then this morning at 06:08 his defibrillator went off therefore he called his line controller and was referred to [facility] for further evaluation Patient denies associated fever chills no sick contacts denies leg edema, has been coughing mostly dry cough in few days and noted some audible wheeze and shortness of breath with deep breathing, patient admit to medication compliant but lately has been drinking large amount of fluids to stay hydrated since feels thirsty being on Bumex, in the emergency room workup showed elevated BNP 906, troponin 12.[address] chest showed no PE and showed mild congestive heart failure with bilateral pleural effusion , patient treated in the emergency room with 1 dose of IV Bumex 2 mg, IV Solu Medrol, magnesium and updraft treatment, currently feeling better. Mr Lomas was admitted to the [facility] for IV diuresis with bumetanide. Cardiology was consulted. TTE showed LVEF 20-25%. He diuresed a net balance of -19L during his prolonged hospitalization. He was fluid restricted to 1.5L. Ivabradine, carvedilol, and lisinopril were continued and spironolactone was added. As for NSVT, AICD interrogation reported: Interrogation completed showing Device Tone sounded due to unsuccessful care link transmission. ( his remote monitor is at home). Battery 1.9 years, RV amplitude and sensitivity normal range, VVVI mode, low rate 40, 1 VT episode with shock delivered on 05/21/21 0613, Frequent NSVT episodes in monitoring zone, [employer] 3.4% of time.? - Reviewed device tone alert with Rep and she reports that tone alert will stop now. Remote transmissions will resume once he is home and near his remote carelink monitor. Mexiletine dose was decreased to 150mg bid due to side effect of dyspnea. Amiodarone was continued. Hypoxia resolved with diuresis, and dyspnea and abdmoninal distension improved markedly. He was discharged home to continue bumetanide 2 mg bid and was instructed to continue fluid and sodium restrictions. Per the line controller, it appears that the ventricular arrhythmia was due to decompensated HF from LV stretch.? If his arrhythmias are predominantly suppressed over 3 months, may consider discontinuing mexiletine therapy.? Cardiology will also refer him as outpatient to [facility] for evaluation. Time Spent with Patient Time attestation: Total time spent providing and/or coordinating discharge services: Discharge coordination time: Greater than 30 minutes Quality: Stroke Does the patient have a stroke diagnosis?: No Physical Exam Vital Signs: Vital Signs: Last Vital Signs Temp 98.9 F 05/30/21 12:00 Pulse 62 05/30/21 12:00 Resp 20 05/30/21 12:00 BP 110/75 05/30/21 12:00 Pulse Ox 96 05/30/21 12:00 BMI result Body Mass Index 25.4 Gen: in no acute distress HEENT: sclera anicteric, moist mucus membranes Neck: supple, no JVD Lungs: clear to auscultation bilaterally Heart: regular rate and rhythm, no murmurs Abd: soft, non-tender, non-distended Ext: no edema Skin: warm/well-perfused Neuro: alert and oriented x3, no focal findings Psych: appropriate affect DS: Data Data Completed and Pending Completed studies during hospitalization [Text1]: Laboratory Results WBC 10.7 X10*3/uL (4.8-10.8) 05/21/21 10:14 RBC 4.66 X10*6/uL (4.60-5.80) 05/21/21 10:14 Hgb 14.8 g/dl (14.0-18.0) 05/21/21 10:14 Hct 45.9 % (42.0-52.0) 05/21/21 10:14 MCV 98.5 fL (80.0-98.0) H 05/21/21 10:14 MCH 31.8 pg (27.0-33.0) 05/21/21 10:14 MCHC 32.2 g/dl (31.0-36.0) 05/21/21 10:14 RDW 13.2 % (11.0-16.0) 05/21/21 10:14 Plt Count 141 X10*3/uL (160-400) L 05/21/21 10:14 MPV 12.4 fL (9.4-12.4) 05/21/21 10:14 Immature Gran % (Auto) 0.8 % (0.0-0.4) H 05/21/21 10:14 Neut % (Auto) 89.8 % (45-73) H 05/21/21 10:14 Lymph % (Auto) 5.5 % (20-40) L 05/21/21 10:14 Bladen % (Auto) 3.2 % (2-11) 05/21/21 10:14 Eos % (Auto) 0.4 % (0-4) 05/21/21 10:14 Baso % (Auto) 0.3 % (0-2) 05/21/21 10:14 Lymph # (Auto) 0.6 X10*3/uL (1.2-4.9) L 05/21/21 10:14 Bladen # (Auto) 0.3 X10*3/uL (0.1-1.2) 05/21/21 10:14 Eos # (Auto) 0.0 X10*3/uL (0.0-0.4) 05/21/21 10:14 Baso # (Auto) 0.0 X10*3/uL (0.0-0.2) 05/21/21 10:14 Abs Immat Gran (auto) 0.09 X10*3/uL (0.00-0.03) H 05/21/21 10:14 Absolute Neuts (auto) 9.7 x10*3/uL (2.0-8.3) H 05/21/21 10:14 Absolute Nucleated RBC 0.000 X10*3/uL (0.0-0.012) 05/21/21 10:14 Nucleated RBC % (auto) 0.0 /100WBC (0.0-0.2) 05/21/21 10:14 PT 16.2 SEC (9.9-13.0) H 05/21/21 11:02 INR 1.4 (0.9-1.1) H 05/21/21 11:02 O2 Saturation 94.0 % 05/21/21 10:06 ABG pH at Pt Temp 7.47 (7.35-7.45) H 05/21/21 10:06 ABG pH (Temp Correct) 7.47 (7.35-7.45) H 05/21/21 10:06 ABG pCO2 at Pt Temp 32 mmHg (32-45) 05/21/21 10:06 ABG pCO2 (Temp Corrct 33 mmHg (32-45) 05/21/21 10:06 ABG pO2 at Pt Temp 71 mmHg (83-108) L 05/21/21 10:06 ABG pO2 (Temp Correct 72 (83-108) L 05/21/21 10:06 ABG HCO3 24 mmol/L (22-26) 05/21/21 10:06 ABG Base Excess (Actual) 1.3 mmol/L 05/21/21 10:06 Sodium 139 mmol/L (135-145) 05/30/21 05:52 Potassium 4.8 mmol/L (3.3-5.1) 05/30/21 05:52 Chloride 107 mmol/L (96-108) 05/30/21 05:52 Carbon Dioxide 23 mmol/L (22-29) 05/30/21 05:52 Anion Gap 14 (12-20) 05/30/21 05:52 BUN 29 mg/dL (9-16) H 05/30/21 05:52 Creatinine 1.32 mg/dL (0.5-1.4) 05/30/21 05:52 Estim Creat Clear Calc 60.2 05/30/21 05:52 Estimated GFR 55 05/30/21 05:52 Random Glucose 90 mg/dL (60-115) 05/30/21 05:52 Lactic Acid 1.3 mmol/L (0.5-2.0) 05/21/21 10:14 Calcium 9.1 mg/dL (8.4-10.2) 05/30/21 05:52 Magnesium 2.3 mg/dL (1.6-2.6) 05/30/21 05:52 Total Bilirubin 0.9 mg/dL (0.0-1.0) 05/21/21 11:02 AST 18 U/L (5-37) 05/21/21 11:02 ALT 19 U/L (0-40) 05/21/21 11:02 Alkaline Phosphatase 59 U/L (39-117) 05/21/21 11:02 Troponin I High Sens 23.0 ng/L (<3.5-35.0) D 05/21/21 13:17 B-Natriuretic Peptide 608 pg/mL (<100) H 05/30/21 05:52 Total Protein 6.4 g/dL (6.5-8.0) L 05/21/21 11:02 Albumin 3.9 g/dL (3.5-5.0) 05/21/21 11:02 Urine Color YELLOW 05/21/21 12:51 Urine Appearance CLEAR 05/21/21 12:51 Urine pH 7.5 (5.0-8.0) 05/21/21 12:51 Ur Specific Randall 1.010 (1.005-1.025) 05/21/21 12:51 Urine Protein NEG MG/DL (NEG-TRACE) 05/21/21 12:51 Urine Glucose (UA) NEG MG/DL (NEG) 05/21/21 12:51 Urine Ketones NEG MG/DL (NEG) 05/21/21 12:51 Urine Blood NEG (NEG) 05/21/21 12:51 Urine Nitrite NEG (NEG) 05/21/21 12:51 Ur Leukocyte Esterase NEG (NEG) 05/21/21 12:51 Influenza Type A (PCR) NEGATIVE (Negative) 05/21/21 10:34 Influenza Type B (PCR) NEGATIVE (Negative) 05/21/21 10:34 RSV RNA Qual (PCR) NEGATIVE (Negative) 05/21/21 10:34 SARS-CoV-2 RNA (RT-PCR) NEGATIVE (Negative) 05/21/21 10:34 Impressions Chest X-Ray 05/21/21 11:19 IMPRESSION: Cardiomegaly with pulmonary vascular congestion. No chip airspace edema identified. Question possible superimposed acute interstitial disease. Chest CTA 05/21/21 12:21 IMPRESSION: No pulmonary embolism. Probable mild CHF. VTE: negative TTE 05/23/21 - The left ventricular systolic function is severely decreased.? The visually estimated ejection fraction is between 20-25%.? ? ? - Normal right ventricular cavity size and systolic function.? ? There is a pacemaker wire seen in the right ventricle. ? - There is mild tricuspid valve regurgitation.? Significantly? ? elevated right atrial pressure.? Severe pulmonary hypertension is present. ? Discharge Plan Discharge Patient Disposition: Home Health Service Discharge Diagnosis: CHF exacerbation, ventricular tachycardia Referrals: Kennedy,Rico Mcnulty MD [Primary Care Provider] - 1 Week Renato Diaz MD [Physician] - 2 Weeks Discharge Medications: New mexiletine 150 mg Capsule 150 mg PO BID@0600,1800 Qty: 60 RF: 0 spironolactone 25 mg Tablet 12.5 mg PO DAILY Qty: 15 RF: 0 magnesium oxide 400 mg (241.3 mg magnesium) Tablet 400 mg PO DAILY Qty: 30 RF: 0 Continued bumetanide 2 mg tablet 2 mg PO BID RF: 0 Xarelto 20 mg tablet 20 mg PO DAILY@1800 RF: 0 potassium chloride 20 mEq tablet,ER particles/crystals 40 meq PO DAILY RF: 0 amiodarone 200 mg tablet 200 mg PO DAILY@1800 RF: 0 potassium chloride 20 mEq tablet,ER particles/crystals 60 meq PO BEDTIME RF: 0 tamsulosin 0.4 mg capsule 0.4 mg PO BEDTIME RF: 0 rosuvastatin 5 mg tablet 5 mg PO BEDTIME RF: 0 acetaminophen 325 mg Tablet 650 mg PO Q6H PRN (Reason: Pain) RF: 0 [id number] Tablet 1 tab PO DAILY RF: 0 carvedilol 25 mg tablet 25 mg PO BID Qty: 180 RF: 3 lisinopril 10 mg tablet 10 mg PO DAILY Qty: 90 RF: 3 omeprazole 20 mg capsule,delayed release(DR/EC) 20 mg PO DAILY Qty: 90 RF: 3 Corlanor 5 mg tablet 2.5 mg PO BID 90 Days Qty: 90 RF: 3 bimatoprost 0.01 % drops 1 drp ophthalmic (eye) BEDTIME RF: 0 Discontinued mexiletine 150 mg capsule 150 mg PO Q8H 30 Days Qty: 90 RF: 3 Discharge Orders: Discharge Order (Routine); Ordered 05/30/21 Ordered By: Oscar Corrales Diet: low salt diet and other Activity on Discharge: As tolerated Stand Alone Forms: Patient Portal Discharge page Other Ambulatory Orders: Basic Metabolic Panel Fasting (Routine) Timeframe: 1 Week Facility: [facility] - Location: Laboratory Ordered By: Oscar Corrales B Type Natriuretic Peptide (Routine) Timeframe: 1 Week Facility: [facility] - Location: Laboratory Ordered By: Oscar Corrales Magnesium (Routine) Timeframe: 1 Week Facility: [facility] - Location: Laboratory Ordered By: Oscar Corrales Care Plan Goals: prevent CHF exacerbations and ventricular tachycardia Health Concerns: CHF exacerbation, ventricular tachycardia Plan of Treatment: take bumetanide 2 mg twice daily take spironolactone 12.5 mg daily continue magnesium 400 mg daily decrease mexiletine to 150 mg twice daily restrict fluid to 1500 mL/day, sodium to 2000 mg/day labs in week: BNP, BMP, magnesium weigh yourself daily and call line controller if goes up by more than 5 lb see Primary Care in 1 week see Cardiology in 2 weeks Assessment: see Discharge Summary Patient Instructions: Heart Failure (DC)
--- NOTE | 2021-05-30 15:29 | MHC.CM.PN ---
hvns notified of dc
== END 2021-05-30 14:49 | disposition home health service (06) | DRG 291 ==
LOC: HO.ED 13:52 → HO.EDOVER 16:00 → HO.IMC 19:19
PROVIDERS: Nurse Practitioner Family; Physician Assistant Medical; Admitting Provider Hospitalist; Emergency Provider Emergency Medicine; PCP Internal Medicine; Visit Provider Family Medicine
DX: I13.0 Hypertensive heart and chronic kidney disease with heart failure and stage 1 through stage 4 chronic kidney disease, or unspecified chronic kidney disease (principal); I50.23 Acute on chronic systolic (congestive) heart failure; J96.01 Acute respiratory failure with hypoxia; I47.1 Supraventricular tachycardia; K21.9 Gastro-esophageal reflux disease without esophagitis; K22.70 Barrett's esophagus without dysplasia; E11.22 Type 2 diabetes mellitus with diabetic chronic kidney disease; I42.8 Other cardiomyopathies; N40.0 Benign prostatic hyperplasia without lower urinary tract symptoms; N18.9 Chronic kidney disease, unspecified; Z95.810 Presence of automatic (implantable) cardiac defibrillator; Z86.711 Personal history of pulmonary embolism; Z20.822 Contact with and (suspected) exposure to COVID-19; Z88.6 Allergy status to analgesic agent; Z79.01 Long term (current) use of anticoagulants; Z79.899 Other long term (current) drug therapy
CPT/HCPCS: 0241U; 36415; 71045; 71275; 80048; 80053; 81003; 82803; 83605; 83735; 83880; 84484; 85025; 85610; 87040; 93005; 93306; 93308; 96365; 96366; 96375; 97162; 99285; 99291; J2930; J3475; Q9957; Q9967

== ENCOUNTER 2021-06-11 08:11 | Outpatient (REF) | payer MEDICARE, SELFPAY ==
[2021-06-11 10:21] LABS: Anion Gap 13 (12-20); Blood Urea Nitrogen 33 mg/dL (9-16); Calcium 9.4 mg/dL (8.4-10.2); Carbon Dioxide 28 mmol/L (22-29); Chloride 103 mmol/L (96-108); Estimated Glomerular Filt Rate 37; Glucose Fasting 142 mg/dL (60-99); Magnesium 2.6 mg/dL (1.6-2.6); Potassium 4.5 mmol/L (3.3-5.1); Sodium 139 mmol/L (135-145)
[2021-06-11 10:24] LABS: B Type Natriuretic Peptide 505 pg/mL (<100)
== END 2021-06-11 08:12 | disposition home or self-care (01) ==
LOC: HO.10HDL 08:11
PROVIDERS: Visit Provider Family Medicine
DX: I50.9 Heart failure, unspecified (principal)
CPT/HCPCS: 36415; 80048; 83735; 83880

== ENCOUNTER 2021-06-18 12:10 | Outpatient (REF) | payer MEDICARE, SELFPAY ==
[2021-06-18 14:37] LABS: Anion Gap 11 (12-20); Blood Urea Nitrogen 26 mg/dL (9-16); Carbon Dioxide 27 mmol/L (22-29); Chloride 107 mmol/L (96-108); Estimated Glomerular Filt Rate 44; Glucose Random 126 mg/dL (60-115); Magnesium 2.4 mg/dL (1.6-2.6); Potassium 4.3 mmol/L (3.3-5.1); Sodium 141 mmol/L (135-145)
[2021-06-18 14:42] LABS: B Type Natriuretic Peptide 766 pg/mL (<100)
== END 2021-06-18 12:11 | disposition home or self-care (01) ==
LOC: HO.LAB 12:10
PROVIDERS: Visit Provider Nurse Practitioner Family
DX: I11.0 Hypertensive heart disease with heart failure (principal); I50.23 Acute on chronic systolic (congestive) heart failure; I42.8 Other cardiomyopathies; I47.2 Ventricular tachycardia; Z95.810 Presence of automatic (implantable) cardiac defibrillator
CPT/HCPCS: 36415; 80048; 83735; 83880; 99212